=== PATIENT | female | born 1945 | race African-American/Black ===

== ENCOUNTER 2021-12-08 16:48 | Emergency (ER) | payer MEDICARE ==
--- OUTSIDE RECORDS SUMMARY | 2021-12-08 16:51 | XMS REPORT | Continuity of Care Document ---
:1945 Author Organization [facility] t Address [address] [place] [address] Care Team Providers Name Role Phone Emili MAI Primary Care Physician Unavailable Emili Mai Attending Clinician Unavailable Jane MON Attending Clinician Unavailable Brisa BARROS, L Attending Clinician Doctor Unassigned, Name Attending Clinician Unavailable Tamika BARROS Attending Clinician TAMIKA Attending Clinician Unavailable Payers Payer Name Policy Type Policy Number Effective Date Expiration Date [facility] [id number] 2021 (MEDICARE 00:00:00 REPLACEMENT HMO) Problems Condition Condition Condition Status Onset Resolution Last Treating Co mments Source Name Details Category Date Date Treatment Clinician Date Injury of Injury of Disease Active 2020-07 Overview: Univers right right 08-03 Formattin ity of ankle, ankle, 00:00: g of this [place] initial initial 00 note Medical encounter encounter might be Br anch different from the original. Added automatic ally from request for surgery [id number] Allergies, Adverse Reactions, Alerts Allergy Allergy Status Severity Reaction(s) Onset Inactive Treating Comm ents Source Name Type Date Date Clinician LISINOPR DRUG Active High Swelling Univer s [place] INGREDI 03-20 ity of 00:00: [place] 00 [facility] Lisinopr Drug Active Other - See Uni vers il Allergy comments 03-20 ity of 00:00: [place] [facility] IODINE DRUG Active Unknown-Cmnt Univ ers INGREDI 04-01 ity of 00:00: [place] [facility] Iodine Propensi Active Unknown - Unive rs ty to See comments 04-01 ity of adverse 00:00: [place] reaction 00 Medical s Branch Iodine Adverse Active swelling Common Reaction [facility] Lisinopr Adverse Active Swelling Commo n il Reaction [facility] Social History Social Habit Start Date Stop Date Quantity Comments Source Exposure to Not sure [facility] SARS-CoV-2 (event) Medica Branch Tobacco use and 2021-06-06 2021-06-06 Never used [facility] exposure 00:00:00 00:00:00 Medical Branch Sex [birth year] [facility] 00:00:00 00:00:00 Medical Branch Smoking Status Start Date Stop Date Source Never smoker [facility] Medications Ordered Filled Start Stop Current Ordering Indication Dosage Frequency Signature Comments Components Source Medication Medication Date Date Medication? Clinician (SIG) Name Name losartan 2020-07 Yes 100mg Take 100 Univ ers 100 mg 1-17 mg by ity of tablet 09:07: mouth [place] [address] daily. Medical Branch amLODIPine 2020-07 Yes 10mg Take 10 mg U nivers 10 mg 1-17 by mouth ity of tablet 09:07: daily. [place] [address] Medical Branch cloNIDine 2020-07 Yes .3mg Take 0.3 Univ ers 0.3 mg 1-17 mg by ity of tablet 09:07: mouth as [place] needed. Medical Branch metFORMIN 2020-07 Yes 1000mg Take 1,000 Univers 1,000 mg 1-17 mg by ity of tablet 09:07: mouth [place] [address] daily. Medical Branch carvediloL 2020-07 Yes 12.5mg Take 12.5 Univers 12.5 mg 1-17 mg by ity of tablet 09:07: mouth [place] daily. Medical Branch furosemide 2020-07 Yes 20mg Take 20 mg U nivers 20 mg 1-17 by mouth ity of tablet 09:07: daily. [address] Branch losartan 2020-07 Yes 100mg Take 100 Univ ers 100 mg 1-17 mg by ity of tablet 09:07: mouth [place] 47 daily. Medical Branch amLODIPine 2020-07 Yes 10mg Take 10 mg U nivers 10 mg 1-17 by mouth ity of tablet 09:07: daily. [place] [address] Medical Branch cloNIDine 2020-07 Yes .3mg Take 0.3 Univ ers 0.3 mg 1-17 mg by ity of tablet 09:07: mouth as [place] 47 needed. Medical Branch metFORMIN 2020-07 Yes 1000mg Take 1,000 Univers 1,000 mg 1-17 mg by ity of tablet 09:07: mouth [place] 47 daily. Medical Branch carvediloL 2020-07 Yes 12.5mg Take 12.5 Univers 12.5 mg 1-17 mg by ity of tablet 09:07: mouth [place] 47 daily. Medical Branch furosemide 2020-07 Yes 20mg Take 20 mg U nivers 20 mg 1-17 by mouth ity of tablet 09:07: daily. [place] [address] Medical Branch losartan 2020-07 Yes 100mg Take 100 Univ ers 100 mg 1-17 mg by ity of tablet 09:07: mouth [place] 47 daily. Medical Branch amLODIPine 2020-07 Yes 10mg Take 10 mg U nivers 10 mg 1-17 by mouth ity of tablet 09:07: daily. [place] [address] Medical Branch cloNIDine 2020-07 Yes .3mg Take 0.3 Univ ers 0.3 mg 1-17 mg by ity of tablet 09:07: mouth as [place] 47 needed. Medical Branch metFORMIN 2020-07 Yes 1000mg Take 1,000 Univers 1,000 mg 1-17 mg by ity of tablet 09:07: mouth [place] 47 daily. Medical Branch carvediloL 2020-07 Yes 12.5mg Take 12.5 Univers 12.5 mg 1-17 mg by ity of tablet 09:07: mouth [place] 47 daily. Medical Branch furosemide 2020-07 Yes 20mg Take 20 mg U nivers 20 mg 1-17 by mouth ity of tablet 09:07: daily. [place] [address] Medical Branch losartan 2020-07 Yes 100mg Take 100 Univ ers 100 mg 1-17 mg by ity of tablet 09:07: mouth [place] 47 daily. Medical Branch amLODIPine 2020-07 Yes 10mg Take 10 mg U nivers 10 mg 1-17 by mouth ity of tablet 09:07: daily. [address] cloNIDine 2020-07 Yes .3mg Take 0.3 Univ ers 0.3 mg 1-17 mg by ity of tablet 09:07: mouth as [place] [address] needed. Medical Branch metFORMIN 2020-07 Yes 1000mg Take 1,000 Univers 1,000 mg 1-17 mg by ity of tablet 09:07: mouth [place] [address] daily. Medical Branch carvediloL 2020-07 Yes 12.5mg Take 12.5 Univers 12.5 mg 1-17 mg by ity of tablet 09:07: mouth [place] [address] daily. Medical Branch furosemide 2020-07 Yes 20mg Take 20 mg U nivers 20 mg 1-17 by mouth ity of tablet 09:07: daily. [address] Atorvastati Atorvastati Yes Robert 1 tablet Common n Calcium n Calcium 7-31 Mai Spir it 00:00: - [facility] 00 [facility] Ferrous Ferrous Yes Robert 1 tablet Com mon Sulfate Sulfate [facility] Lexi Lexi Yes Robert 1 tablet Common Aspirin Aspirin Mai [facility] Clonidine Clonidine Yes Robert 1 tablet Common HCl HCl Mai [facility] Coreg Coreg Yes Robert 1 tablet Common Mai with food [facility] Norvasc Norvasc Yes Robert 1 tablet Com mon Mai [facility] Metformin Metformin Yes Robert 1 tablet Common HCl HCl Mai with meals [facility] Ipratropium Ipratropium Yes Robert USE 3 ML Common -Albuterol -Albuterol Mai VIA Sp minnie NEBULIZER - [facility] EVERY [address] [facility] Losartan Losartan Yes Robert 1 tablet C ommon Potassium Potassium Mai Spir [facility] Vital Signs Vital Name Observation Time Observation Value Comments Source Systolic blood 2021-06-11 15:05:00 132 mm[Hg[facility] 2021-06-11 15:05:00 73 mm[facility]Hg[facility] Heart rate 2021-06-11 15:05:00 72 /min [facility] Body height 2021-06-11 15:05:00 160 cm [facility] Body weight 2021-06-11 15:05:00 107.956 kg [facility] BMI 2021-06-11 15:05:00 42.16 kg/m2 [facility] Oxygen saturation 2021-06-11 15:05:00 96 /min [facility] in Arterial blood Medical Br anch by Pulse oximetry Procedures Procedure Date / Time Performing Clinician Source Performed EXTERNAL PROVIDER - ADC 2021-07-09 06:01:00 Doctor Unassigned, N o [facility] CARDIOLOGY [facility] HB ECG ROUTINE & RHYTHM 2021-06-11 15:11:49 Robin [facility] AUTHORIZATION TO RELEASE 2021-06-11 06:01:00 Doctor Unassigned, No [facility] PHI TO [facility] Encounters Start End Encounter Admission Attending Care Care Encounter Source Date/Time Date/Time Type Type Clinicians Facility Department ID 2021-11-21 Outpatient Mai, STLMLC STLMLC [id number] Common 08:51:01 Robert [id number] [facility] 2021-08-20 Outpatient Mai, STLMLC STLMLC [id number] Common 13:35:21 Robert [id number] [facility] 2021-08-20 Outpatient Mai, STLMLC STLMLC [id number] Common 13:06:25 Robert [id number] [facility] 2021-08-20 Outpatient Mai, STLMLC STLMLC [id number] Common 12:37:56 Robert [id number] [facility] 2021-08-20 Outpatient Mai, STLMLC STLMLC [id number] Common 11:51:15 Robert [id number] [facility] 2021-08-20 Outpatient Mai, STLMLC STLMLC [id number] Common 11:50:29 Robert [id number] [facility] 2021-08-20 Outpatient Mai, STLMLC STLMLC [id number] Common 11:42:33 Robert [id number] [facility] 2021-08-20 Outpatient Mai, STLMLC STLMLC [id number] Common 11:17:37 Robert [id number] [facility] 2021-08-20 Outpatient Mai, STLMLC STLMLC [id number] Common 10:59:55 Robert [id number] [facility] 2021-08-20 Outpatient Mai, STLMLC STLMLC [id number] Common 10:58:12 Robert [id number] [facility] 2021-12-03 2021-12-03 ambulatory STLMLC STLMLC [id number] Common 00:00:00 00:00:00 [facility] 2021-12-02 2021-12-02 ambulatory STLMLC STLMLC [id number] Common 00:00:00 00:00:00 [facility] 2021-11-26 2021-11-26 ambulatory STLMLC STLMLC [id number] Common 00:00:00 00:00:00 [facility] 2021-11-24 2021-11-24 ambulatory STLMLC STLMLC [id number] Common 00:00:00 00:00:00 [facility] 2021-10-27 2021-10-27 Outpatient Rohan MON [facility] [id number] Univers 14:30:00 14:30:00 JASMYN [id number] [facility] 2021-10-27 2021-10-27 Outpatient Rohan MON [facility] [id number] Univers 14:30:00 14:30:00 JASMYN [facility] 2021-10-24 2021-10-24 ambulatory STLMLC STLMLC [id number] Common 00:00:00 00:00:00 [facility] 2021-10-15 2021-10-15 Telephone Brisa AZCRISTIANO [id number] Univers 00:00:00 00:00:00 Jasmyn [facility] [id number] it y cinthya GODINEZ [id number] Patrick as SHEREEN?BLEA [phone] Me giancarlo [address] MEDICAL OFFICE BUILDING 2021-07-09 2021-07-09 Orders Doctor JOSE [id number] Univers 00:00:00 00:00:00 Only Unassigned, MARYLOU [id number] ity of [place] [facility] [id number] Patrick as [phone] [address] 2021-06-11 2021-06-11 [facility] [id number] Univers 08:40:00 09:25:09 Visit Robin GODINEZ [id number] ity [id number] [place] PROF[place] [phone] Tn [address] 2021-06-11 2021-06-11 [facility] [id number] Univers 08:40:00 09:25:09 ROBIN kaur o f [place] [facility] 2021-06-11 2021-06-11 Orders Doctor JOSE [id number] Univers 00:00:00 00:00:00 Only Unassigned, MARYLOU [id number] ity of [place] [facility] [id number] Patrick as [id number] [address] 2021-06-02 2021-06-02 Outpatient Rohan MON [facility] [id number] Univers 15:45:00 16:35:14 JASMYN ity [facility] 2021-02-27 2021-02-27 Outpatient STLMLC STLMLC [id number] Common 00:00:00 00:00:00 [facility] 2021-02-27 2021-02-27 Outpatient STLMLC STLMLC [id number] Common 00:00:00 00:00:00 [facility] 2021-01-31 2021-01-31 Outpatient DMG DMG [id number] [facility]oted 08:00:00 08:00:00 [id number] [facility] 2020-10-01 2020-10-01 Outpatient STLMLC STLMLC [id number] Common 00:00:00 00:00:00 [facility] 2020-08-26 2020-08-26 Outpatient STLMLC STLMLC [id number] Common 00:00:00 00:00:00 [facility] 2020-07-24 2020-07-24 Outpatient STLMLC STLMLC [id number] Common 00:00:00 00:00:00 [facility] 2020-07-03 2020-07-03 Outpatient STLMLC STLMLC [id number] Common 00:00:00 00:00:00 [facility] 2020-05-30 2020-05-30 Outpatient STLMLC STLMLC [id number] Common 00:00:00 00:00:00 [facility] 2020-04-25 2020-04-25 Outpatient STLMLC STLMLC [id number] Common 00:00:00 00:00:00 [facility] 2020-03-26 2020-03-26 [id number] Common 13:30:00 13:30:[address] [facility] 2019-12-13 2019-12-13 Out[facility] [id number] Common 13:00:00 13:00:[address] [facility] 2019-11-28 2019-11-28 Out[facility] [id number] Common 08:08:00 08:08:[address] [facility] 2019-08-03 2019-08-03 Outpatient [facility] [id number] Common 14:00:00 14:00:[address] [facility] 2019-05-25 2019-05-25 Outpatient [facility] [id number] Common 13:00:00 13:00:[address] [facility] 2019-02-22 2019-02-22 Out[facility] [id number] Common 13:00:00 13:00:[address] [facility] 2019-02-15 2019-02-15 Out[facility] [id number] Common 08:00:00 08:00:[address] [facility] 2019-01-11 2019-01-11 Outpatient [facility] [id number] Common 15:00:00 15:00:[address] [facility] 2018-03-21 2018-03-21 Out[facility] [id number] Common 13:00:00 13:00:[address] [facility] 2018-02-18 2018-02-18 Out[facility] [id number] Common 12:09:00 12:09:[address] [facility] 2018-02-14 2018-02-14 Out[facility] [id number] Common 11:15:00 11:15:[address] [facility] 2018-01-19 2018-01-19 Out[facility] [id number] Common 13:45:00 13:45:[address] [facility] Results This patient has no known results.
--- NOTE | 2021-12-08 17:47 | ER ---
Nurse's Notes [facility] Name: Lizett Baca Age: 76 yrs Sex: Female : 1945 Arrival Date: 12/08/2021 Time: 16:52 Bed DIS2 Private MD: Robert Mai Diagnosis: Essential (primary) hypertension Presentation: 12/08 16:59 Chief complaint: Patient states: reports sent by [facility] for high blood ll1 pressure. Pt reports did not take medication today. Pt denies headache , dizziness or difficulty breathing. Coronavirus screen: Vaccine status: Patient reports receiving the 2nd dose of the covid vaccine. Ebola Screen: Patient negative for fever greater than or equal to 101.5 degrees Fahrenheit, and additional compatible Ebola Virus Disease symptoms. Risk Assessment: Do you want to hurt yourself or someone else? Patient reports no desire to harm self or others. Onset of symptoms was December 08, 2021. 16:59 Method Of Arrival: Wheelchair ll1 16:59 Acuity: MARIAA 3 ll1 18:09 Initial Sepsis Screen: Does the patient meet any 2 criteria? No. Patient's initial ll1 sepsis screen is negative. Does the patient have a suspected source of infection? No. Patient's initial sepsis screen is negative. Triage Assessment: 18:07 General: Appears in no apparent distress. Behavior is calm, cooperative, appropriate ll1 for age. Pain: Denies pain. Neuro: Reports HTN. Historical: - Allergies: 17:02 Iodine; ll1 - Home Meds: 17:02 allopurinol 300 mg oral tab once daily [Active]; amlodipine 10 mg oral tab once daily ll1 [Active]; clonidine HCl 0.3 mg oral tab 2 times per day [Active]; metformin 1,000 mg oral TG24 2 times per day [Active]; Iron CR Oral daily [Active]; losartan 100 mg oral tab once daily [Active]; carvedilol 3.125 mg oral tab 2 times per day [Active]; - PMHx: 17:05 Diabetes mellitus; Hypertensive disorder; wound to left foot; right ankle fracture; ll1 - PSHx: 17:05 None; ll1 - Immunization history:: Client reports receiving the 2nd dose of the Covid vaccine. - Social history:: Smoking status: Patient denies any tobacco usage or history of. Screenin:06 Abuse screen: Denies threats or abuse. Nutritional screening: No deficits noted. ll1 Tuberculosis screening: No symptoms or risk factors identified. Fall Risk Total Dwyer Fall Scale indicates No Risk (0-24 pts). Assessment: 18:07 Reassessment: No changes from previously documented assessment. Patient and/or family ll1 updated on plan of care and expected duration. Pain level reassessed. Patient is alert, oriented x 3, equal unlabored respirations, skin warm/dry/pink. Vital Signs: 16:59 BP 238 / 96; Pulse 97; Resp 20; Temp 98.6(O); Pulse Ox 98% ; Pain 0/10; ll1 17:07 BP 238 / 96; Pulse 88; Resp 20; Temp 98.6(O); Pulse Ox 100% on R/A; Pain 0/10; ll1 18:02 BP 231 / 116; Pulse 94; Resp 20; Pulse Ox 97% on R/A; ww ED Course: 16:52 Patient arrived in ED. mr 16:52 Robert Mai DO is Private Physician. mr 17:02 Triage completed. ll1 17:14 Thomas Young MD is Attending Physician. barbara 17:46 Robert Mai DO is Referral Physician. barbara 18:07 Arm band placed on right wrist. ll1 18:07 No provider procedures requiring assistance completed. Patient did not have IV access ll1 during this emergency room visit. 18:10 Sophia Medina, RN is Primary Nurse. ll1 18:10 Patient has correct armband on for positive identification. Cardiac monitoring not ll1 applicable on this patient. Administered Medications: 18:03 Drug: Losartan 100 mg Route: PO; ww 18:10 Follow up: Response: No adverse reaction ll1 18:03 Drug: Coreg (carvedilol) 3.125 mg Route: PO; ww 18:10 Follow up: Response: No adverse reaction ll1 18:03 Drug: Norvasc (amlodipine) 10 mg Route: PO; ww 18:10 Follow up: Response: No adverse reaction ll1 18:03 Drug: cloNIDine 0.1 mg Route: PO; ww 18:11 Follow up: Response: No adverse reaction ll1 Medication: 18:10 VIS not applicable for this client. ll1 Outcome: 17:47 Discharge ordered by . barbara 18:08 Discharged to home via wheelchair. 1 18:08 Condition: stable 18:08 Discharge instructions given to patient, Instructed on discharge instructions, follow up and referral plans. medication usage, Demonstrated understanding of instructions, follow-up care, medications, Prescriptions given X 3. 18:10 Patient left the ED. 1 Signatures: Thomas Young MD MD cha Rivera, Mary mr Sohpia Medina RN RN [facility] Char Simon RN RN Corrections: (The following items were deleted from the chart) 17:07 17:02 PMHx: Hypertension; 1 1 17:07 17:02 PMHx: Diabetes - NIDDM; [place] [id number]
--- NOTE | 2021-12-08 17:47 | EDPHYS ---
Physician Documentation [facility] Name: Lizett Baca Age: 76 yrs Sex: Female : 1945 Arrival Date: 12/08/2021 Time: 16:52 Bed DIS2 Private MD: Sergei [facility] ED Physician Thomas Young HPI: 12/08 17:41 This 76 yrs old Black Female presents to ER via Wheelchair with complaints of High barbara Blood Pressure. 17:41 The patient has elevated blood pressure and discovered this at hospital. Onset: The barbara symptoms/episode began/occurred today. Modifying factors: The symptoms are aggravated by activity, The symptoms are alleviated by remaining still. Associated signs and symptoms: The patient has no apparent associated signs or symptoms. Severity of symptoms: At its worst the blood pressure was moderate, in the emergency department the blood pressure is unchanged. The patient has experienced similar episodes in the past, multiple times. Historical: - Allergies: 17:02 Iodine; ll1 - Home Meds: 17:02 allopurinol 300 mg oral tab once daily [Active]; amlodipine 10 mg oral tab once daily ll1 [Active]; clonidine HCl 0.3 mg oral tab 2 times per day [Active]; metformin 1,000 mg oral TG24 2 times per day [Active]; Iron CR Oral daily [Active]; losartan 100 mg oral tab once daily [Active]; carvedilol 3.125 mg oral tab 2 times per day [Active]; - PMHx: 17:05 Diabetes mellitus; Hypertensive disorder; wound to left foot; right ankle fracture; ll1 - PSHx: 17:05 None; ll1 - Immunization history:: Client reports receiving the 2nd dose of the Covid vaccine. - Social history:: Smoking status: Patient denies any tobacco usage or history of. ROS: 17:42 Constitutional: Negative for fever, chills, and weight loss, Eyes: Negative for injury, barbara pain, redness, and discharge, ENT: Negative for injury, pain, and discharge, Neck: Negative for injury, pain, and swelling, Cardiovascular: Negative for chest pain, palpitations, and edema, Respiratory: Negative for shortness of breath, cough, wheezing, and pleuritic chest pain, Abdomen/GI: Negative for abdominal pain, nausea, vomiting, diarrhea, and constipation, Back: Negative for injury and pain, : Negative for injury, bleeding, discharge, and swelling, MS/Extremity: Negative for injury and deformity, Skin: Negative for injury, rash, and discoloration, Neuro: Negative for headache, weakness, numbness, tingling, and seizure, Psych: Negative for depression, anxiety, suicide ideation, homicidal ideation, and hallucinations, Allergy/Immunology: Negative for hives, rash, and allergies, Endocrine: Negative for neck swelling, polydipsia, polyuria, polyphagia, and marked weight changes, Hematologic/Lymphatic: Negative for swollen nodes, abnormal bleeding, and unusual bruising. Exam: 17:42 Constitutional: This is a well developed, well nourished patient who is awake, alert, barbara and in no acute distress. Head/Face: Normocephalic, atraumatic. Eyes: Pupils equal round and reactive to light, extra-ocular motions intact. Lids and lashes normal. Conjunctiva and sclera are non-icteric and not injected. Cornea within normal limits. Periorbital areas with no swelling, redness, or edema. ENT: Nares patent. No nasal discharge, no septal abnormalities noted. Tympanic membranes are normal and external auditory canals are clear. Oropharynx with no redness, swelling, or masses, exudates, or evidence of obstruction, uvula midline. Mucous membranes moist. Neck: Trachea midline, no thyromegaly or masses palpated, and no cervical lymphadenopathy. Supple, full range of motion without nuchal rigidity, or vertebral point tenderness. No Meningismus. Chest/axilla: Normal chest wall appearance and motion. Nontender with no deformity. No lesions are appreciated. Cardiovascular: Regular rate and rhythm with a normal S1 and S2. No gallops, murmurs, or rubs. Normal PMI, no JVD. No pulse deficits. Respiratory: Lungs have equal breath sounds bilaterally, clear to auscultation and percussion. No rales, rhonchi or wheezes noted. No increased work of breathing, no retractions or nasal flaring. Abdomen/GI: Soft, non-tender, with normal bowel sounds. No distension or tympany. No guarding or rebound. No evidence of tenderness throughout. Back: No spinal tenderness. No costovertebral tenderness. Full range of motion. Female : Normal external genitalia. Skin: Warm, dry with normal turgor. Normal color with no rashes, no lesions, and no evidence of cellulitis. Neuro: Awake and alert, GCS 15, oriented to person, place, time, and situation. Cranial nerves II-XII grossly intact. Motor strength 5/5 in all extremities. Sensory grossly intact. Cerebellar exam normal. Normal gait. Psych: Awake, alert, with orientation to person, place and time. Behavior, mood, and affect are within normal limits. 17:42 Musculoskeletal/extremity: ROM: intact in all extremities, full active range of motion, full passive range of motion, Circulation is intact in all extremities. Sensation intact. Compartment Syndrome exam of affected extremity: is normal. Vital Signs: 16:59 BP 238 / 96; Pulse 97; Resp 20; Temp 98.6(O); Pulse Ox 98% ; Pain 0/10; ll1 17:07 BP 238 / 96; Pulse 88; Resp 20; Temp 98.6(O); Pulse Ox 100% on R/A; Pain 0/10; ll1 18:02 BP 231 / 116; Pulse 94; Resp 20; Pulse Ox 97% on R/A; ww MDM: 17:14 Patient medically screened. barbara 17:42 Differential diagnosis: hypertensive crisis, Malignant HTN. Data reviewed: vital signs, barbara nurses notes. 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 Test interpretation: by ED physician or midlevel provider:. Counseling: I had a detailed discussion with the patient and/or guardian regarding: the historical points, exam findings, and any diagnostic results supporting the discharge/admit diagnosis, lab results. Administered Medications: 18:03 Drug: Losartan 100 mg Route: PO; ww 18:10 Follow up: Response: No adverse reaction ll1 18:03 Drug: Coreg (carvedilol) 3.125 mg Route: PO; ww 18:10 Follow up: Response: No adverse reaction ll1 18:03 Drug: Norvasc (amlodipine) 10 mg Route: PO; ww 18:10 Follow up: Response: No adverse reaction ll1 18:03 Drug: cloNIDine 0.1 mg Route: PO; ww 18:11 Follow up: Response: No adverse reaction ll1 Disposition Summary: 12/08/21 17:47 Discharge Ordered Location: Home barbara Problem: new barbara Symptoms: have improved barbara Condition: Stable barbara Diagnosis - Essential (primary) hypertension barbara Followup: barbara - With: Robert Mai, DO - When: 2 - 3 days - Reason: Recheck today's complaints, Continuance of care, Re-evaluation by your physician Discharge Instructions: - Discharge Summary Sheet barbara - Hypertension, Adult barbara - Hypertension, Adult, [id number] barbara - Managing Your Hypertension barbara Forms: - Medication Reconciliation Form barbara - Thank You Letter barbara - Antibiotic Education barbara - Prescription Opioid Use barbara Prescriptions: - losartan 100 mg Oral tablet - take 1 tablet by ORAL route once daily; 30 tablet; Refills: 0, Product barbara Selection Permitted - Norvasc 10 mg Oral Tablet - take 1 tablet by ORAL route once daily; 30 tablet; Refills: 0, Product barbara Selection Permitted - Coreg 3.125 mg Oral Tablet - take 2 tablets by ORAL route every 12 hours with food; 60 tablet; Refills: 0, barbara Product Selection Permitted Signatures: Thomas Young MD MD cha Lewis, Lynsay RN RN ll1 Char Simon RN RN ww Corrections: (The following items were deleted from the chart) 17:07 17:02 PMHx: Hypertension; ll1 ll1 17:07 17:02 PMHx: Diabetes - NIDDM; ll1 ll1
[2021-12-08] MEDS ORDERED: LOSARTAN POTASSIUM 50 MG TABLET ONE (18:03)
[2021-12-08] MEDS ORDERED: carvediloL 6.25 MG TAB ONE (18:04)
[2021-12-08] MEDS ORDERED: AMLODIPINE 10 MG TAB ONE (18:04)
[2021-12-08] MEDS ORDERED: cloNIDine HCL 0.1 MG TAB ONE (18:04)
[2021-12-08 18:20] VITALS: TEMP 98.6
[2021-12-08 18:23] VITALS: BP 231/116; O2SAT 97
== END 2021-12-08 18:10 | disposition home or self-care (01) ==
LOC: ER 16:48
DX: I10 Essential (primary) hypertension (principal); Z91.09 Other allergy status, other than to drugs and biological substances; E11.9 Type 2 diabetes mellitus without complications
CPT/HCPCS: 99283

== ENCOUNTER 2022-03-22 18:32 | Emergency (ER) | payer MEDICARE ==
--- OUTSIDE RECORDS SUMMARY | 2022-03-22 18:36 | XMS REPORT | Continuity of Care Document ---
:1945 Author Organization [facility] t Address [address] [place] [address] Care Team Providers Name Role Phone LORETO MAI Primary Care Physician Unavailable Loreto Mai Attending Clinician Unavailable JASMYN LEDEZMA Attending Clinician Unavailable Jasmyn Ledezma MD Attending Clinician Doctor Unassigned, [place] Attending Clinician Unavailable Robin Lundberg MD Attending Clinician ROBIN LUNDBERG Attending Clinician Unavailable Payers Payer Name Policy Type Policy Number Effective Date Expiration Date [facility] [id number] 2021 (MEDICARE 00:00:00 REPLACEMENT HMO) Problems Condition Condition Condition Status Onset Resolution Last Treating Co mments Source Name Details Category Date Date Treatment Clinician Date Injury of Injury of Disease Active 2020-07 Overview: Univers right right 08-03 Formattin ity of ankle, ankle, 00:00: g of this [place] initial initial 00 note Medical encounter encounter might be Br anch different from the original. Added automatic ally from request for surgery [id number] Allergies, Adverse Reactions, Alerts Allergy Allergy Status Severity Reaction(s) Onset Inactive Treating Comm ents Source Name Type Date Date Clinician LISINOPR DRUG Active High Swelling Univer s [place] INGREDI 03-20 ity of 00:00: [place] [facility] Lisinopr Drug Active Other - See Uni vers il Allergy comments 03-20 ity of 00:00: [place] [facility] IODINE DRUG Active Unknown-Cmnt Univ ers INGREDI 04-01 ity of 00:00: [place] [facility] Iodine Propensi Active Unknown - Unive rs ty to See comments 04-01 ity of adverse 00:00: [place] reaction 00 Medical s Branch Iodine Adverse Active swelling Common Reaction [facility] Lisinopr Adverse Active Swelling Commo n il Reaction [facility] Social History Social Habit Start Date Stop Date Quantity Comments Source Exposure to Not sure [facility] SARS-CoV-2 (event) Medica l Branch Tobacco use and 2021-06-06 2021-06-06 Never used [facility] exposure 00:00:00 00:00:00 [facility] Branch Sex Ass[birth year] [facility] 00:00:00 00:00:00 [facility] Smoking Status Start Date Stop Date Source Never smoker [facility] Medications Ordered Filled Start Stop Current Ordering Indication Dosage Frequency Signature Comments Components Source Medication Medication Date Date Medication? Clinician (SIG) Name Name metFORMIN 2020-07 Yes 1000mg Take 1,000 Univers 1,000 mg 1-17 mg by ity of tablet 09:07: mouth [place] [address] daily. Medical Branch carvediloL 2020-07 Yes 12.5mg Take 12.5 Univers 12.5 mg 1-17 mg by ity of tablet 09:07: mouth [place] [address] daily. Medical Branch furosemide 2020-07 Yes 20mg Take 20 mg U nivers 20 mg 1-17 by mouth ity of tablet 09:07: daily. [place] [address] Medical Branch losartan 2020-07 Yes 100mg Take 100 Univ ers 100 mg 1-17 mg by ity of tablet 09:07: mouth [place] [address] daily. Medical Branch amLODIPine 2020-07 Yes 10mg Take 10 mg U nivers 10 mg 1-17 by mouth ity of tablet 09:07: daily. [place] [address] Medical Branch cloNIDine 2020-07 Yes .3mg Take [...] by mouth ity of tablet 09:07: daily. [place] [address] Medical Branch losartan 2020-07 Yes 100mg Take 100 Univ ers 100 mg 1-17 mg by ity of tablet 09:07: mouth [place] 47 daily. Medical Branch amLODIPine 2020-07 Yes 10mg Take 10 mg U nivers 10 mg 1-17 by mouth ity of tablet 09:07: daily. [place] [address] Medical Branch cloNIDine 2020-07 Yes .3mg Take [...] by mouth ity of tablet 09:07: daily. [place] [address] Medical Branch losartan 2020-07 Yes 100mg Take 100 Univ ers 100 mg 1-17 mg by ity of tablet 09:07: mouth [place] 47 daily. Medical Branch amLODIPine 2020-07 Yes 10mg Take 10 mg U nivers 10 mg 1-17 by mouth ity of tablet 09:07: daily. [place] [address] Medical Branch cloNIDine 2020-07 Yes .3mg Take [...] by mouth ity of tablet 09:07: daily. [place] [address] Medical Branch losartan 2020-07 Yes 100mg Take 100 Univ ers 100 mg 1-17 mg by ity of tablet 09:07: mouth [place] 47 daily. Medical Branch amLODIPine 2020-07 Yes 10mg Take 10 mg U nivers 10 mg 1-17 by mouth ity of tablet 09:07: daily. [place] [address] Medical Branch cloNIDine 2020-07 Yes .3mg Take 0.3 Univ ers 0.3 mg 1-17 mg by ity of tablet 09:07: mouth as [place] needed. [facility] Atorvastati Atorvastati Yes [place] 1 tablet Common n Calcium n Calcium 7-31 Mai Spir it 00:00: - [facility] 00 [facility] Ferrous Ferrous Yes [place] 1 tablet Com mon Sulfate Sulfate Mai [facility] Lexi Lexi Yes [place] 1 tablet Common Aspirin Aspirin Mai [facility] Clonidine Clonidine Yes [place] 1 tablet Common HCl HCl Mai [facility] Coreg Coreg Yes [place] 1 tablet Common Mai with food [facility] Norvasc Norvasc Yes [place] 1 tablet Com mon Mai [facility] Metformin Metformin Yes [place] 1 tablet Common HCl HCl Mai with meals [facility] Ipratropium Ipratropium Yes [place] USE 3 ML Common -Albuterol -Albuterol Mai VIA Sp minnie NEBULIZER - [facility]I [facility] EVERY [address] HOURS [facility] Losartan Losartan Yes [place] 1 tablet C ommon Potassium Potassium Mai Spir [facility] Vital Signs Vital Name Observation Time Observation Value Comments Source Systolic blood 2021-06-11 15:05:00 132 mm[Hg] Univer sity [facility] [place] [facility] Diastolic blood 2021-06-11 15:05:00 73 mm[Hg] Unive rsity [facility] Heart rate 2021-06-11 15:05:00 72 /min [facility] Body height 2021-06-11 15:05:00 160 cm [facility] Body weight 2021-06-11 15:05:00 107.956 kg [facility] BMI 2021-06-11 15:05:00 42.16 kg/m2 [facility] Oxygen saturation 2021-06-11 15:05:00 96 /min [facility] in Arterial blood Medical Br anch by Pulse oximetry Procedures Procedure Date / Time Performing Clinician Source Performed EXTERNAL PROVIDER - ADC 2021-07-09 06:01:00 Doctor Unassigned, N o [facility] CARDIOLOGY Name [facility] HB ECG ROUTINE & RHYTHM 2021-06-11 15:11:49 Robin Lundberg [facility] AUTHORIZATION TO RELEASE 2021-06-11 06:01:00 Doctor Unassigned, No [facility] PHI TO [facility] Name [facility] Encounters Start End Encounter Admission Attending Care Care Encounter Source Date/Time Date/Time Type Type Clinicians Facility Department ID 2021-11-21 Outpatient Mai, STLMLC STLMLC [id number] Common 08:51:01 [place] [address] [facility] 2021-08-20 Outpatient Mai, STLMLC STLMLC [id number] Common 13:35:21 [place] [address]373 [facility] 2021-08-20 Outpatient Mai, STLMLC STLMLC [id number] Common 13:06:25 [place] 40310 [facility] 2021-08-20 Outpatient Mai, STLMLC STLMLC [id number] Common 12:37:56 [place] 45120 [facility] 2021-08-20 Outpatient Mai, STLMLC STLMLC [id number] Common 11:51:15 [place] 9[address]87 [facility] 2021-08-20 Outpatient Mai, STLMLC STLMLC [id number] Common 11:50:29 [place] 70739 [facility] 2021-08-20 Outpatient Mai, STLMLC STLMLC [id number] Common 11:42:33 [place] 711[address] [facility] 2021-08-20 Outpatient Mai, STLMLC STLMLC [id number] Common 11:17:37 [place] 867[address] [facility] 2021-08-20 Outpatient Mai, STLMLC STLMLC [id number] Common 10:59:55 [place] [address] [facility] 2021-08-20 Outpatient Mai, STLMLC STLMLC [id number] Common 10:58:12 [place] [address] [facility] 2022-03-04 2022-03-04 ambulatory STLMLC STLMLC [id number] Common 00:00:00 00:00:00 [facility] 2022-02-19 2022-02-19 ambulatory STLMLC STLMLC [id number] Common 00:00:00 00:00:00 [facility] 2022-02-06 2022-02-06 Outpatient DMG [id number] [facility] 03:28:00 03:28:00 [facility] 2021-12-03 2021-12-03 ambulatory STLMLC STLMLC [id number] Common 00:00:00 00:00:00 [facility] 2021-12-02 2021-12-02 ambulatory STLMLC STLMLC [id number] Common 00:00:00 00:00:00 [facility] 2021-11-26 2021-11-26 ambulatory STLMLC STLMLC [id number] Common 00:00:00 00:00:00 [facility] 2021-11-24 2021-11-24 ambulatory STLMLC STLMLC [id number] Common 00:00:00 00:00:00 [facility] 2021-10-27 2021-10-27 Outpatient Rohan LEDEZMA [facility] [id number] Univers 14:30:00 14:30:00 JASMYN [id number] [facility] 2021-10-27 2021-10-27 Outpatient Rohan LEDEZMA [facility] [id number] Univers 14:30:00 14:30:00 JASMYN ity [facility] 2021-10-24 2021-10-24 ambulatory STLMLC STLMLC [id number] Common 00:00:00 00:00:00 Jamel WOJCIECH [facility] 2021-10-15 2021-10-15 [facility] [id number] Univers 00:00:00 00:00:00 Jasmyn [facility] [id number] it y of [facility] [id number] Patrick as SHEREEN?BLEA [phone] Hi dical EY [address] [facility] 2021-07-09 2021-07-09 Orders Doctor JOSE [id number] Univers 00:00:00 00:00:00 Only Unassigned, MARYLOU [id number] ity of [place] [facility] [id number] [place] as [phone] [address] 2021-06-11 2021-06-11 Office [facility] [id number] Univers 08:40:00 09:25:09 Visit Robin [facility] [id number] ity [facility] [id number] [phone] Hi giancarlo [facility] 0[facility] 2021-06-11 2021-06-11 [facility] [id number] Univers 08:40:00 09:25:09 ROBIN kaur o f [facility] 2021-06-11 2021-06-11 Orders Doctor JOSE [id number] Univers 00:00:00 00:00:00 Only Unassigned, MARYLOU [id number] ity of [place] [facility] [id number] Patrick as [phone] [address] 2021-06-02 2021-06-02 [facility] [id number] Univers 15:45:00 16:35:14 JASMYN kaur [facility] 2021-02-27 2021-02-27 Outpatient STLMLC STLMLC [id number] Common 00:00:00 00:00:00 [facility] 2021-02-27 2021-02-27 Outpatient STLMLC STLMLC [id number] Common 00:00:00 00:00:00 [facility] 2021-01-31 2021-01-31 Outpatient DMG DMG [id number] [facility] 08:00:00 08:00:00 0709 [facility] 2020-10-01 2020-10-01 Outpatient STLMLC STLMLC [id number] Common 00:00:00 00:00:00 [facility] 2020-08-26 2020-08-26 Outpatient STLMLC STLMLC [id number] Common 00:00:00 00:00:00 [facility] 2020-07-24 2020-07-24 Outpatient STLMLC STLMLC [id number] Common 00:00:00 00:00:00 [facility] 2020-07-03 2020-07-03 Outpatient STLMLC STLMLC [id number] Common 00:00:00 00:00:00 [facility] 2020-05-30 2020-05-30 Outpatient STLMLC STLMLC [id number] Common 00:00:00 00:00:00 [facility] 2020-04-25 2020-04-25 Outpatient STLMLC STLMLC [id number] Common 00:00:00 00:00:00 [facility] 2020-03-26 2020-03-26 Out[facility] [id number] Common 13:30:00 13:30:[address] [facility] 2019-12-13 2019-12-13 Outpatient [facility] [id number] Common 13:00:00 13:00:[address] [facility] 2019-11-28 2019-11-28 Outpatient [facility] [id number] Common 08:08:00 08:08:[address] [facility] 2019-08-03 2019-08-03 Outpatient [facility] [id number] Common 14:00:00 14:00:[address] [facility] 2019-05-25 2019-05-25 Outpatient [facility] [id number] Common 13:00:00 13:00:[address] [facility] 2019-02-22 2019-02-22 Outpatient [facility] [id number] Common 13:00:00 13:00:[address] [facility] 2019-02-15 2019-02-15 Outpatient [facility] [id number] Common 08:00:00 08:00:[address] [facility] 2019-01-11 2019-01-11 Outpatient [facility] [id number] Common 15:00:00 15:00:[address] [facility] 2018-03-21 2018-03-21 Outpatient [facility] [id number] Common 13:00:00 13:00:[address] [facility] 2018-02-18 2018-02-18 Outpatient [facility] [id number] Common 12:09:00 12:09:[address] [facility] 2018-02-14 2018-02-14 Outpatient [facility] [id number] Common 11:15:00 11:15:[address] [facility] 2018-01-19 2018-01-19 Outpatient [facility] [id number] Common 13:45:00 13:45:[address] [facility] Results This patient has no known results.
[2022-03-22] MEDS ORDERED: TRAMADOL HCL 50 MG TAB ONE (19:25)
--- NOTE | 2022-03-22 19:35 | RAD REPORT ---
EXAM DESCRIPTION: RAD - Knee Left 3 View - 03/22/2022 7:25 pm CLINICAL HISTORY: PAIN COMPARISON: KNEE W OBLIQUE ROUTINE dated 05/12/2008 FINDINGS/IMPRESSION: No acute fracture. No malalignment. Osteopenia. Severe narrowing in the medial compartment with [id number] contact. Enthesophytes along the proximal pole of the patella. Benign c artilaginous lesion in the distal femur of no clinical significance.
[2022-03-22 20:26] LABS: Urine Blood 1+ (Negative); Urine Glucose Negative (Negative); Urine Protein 3+ (Negative); Urine Specific Gravity 1.015 (1.005-1.030); Urine pH 8.5 (5.0-7.0)
[2022-03-22 20:45] LABS: Urine Bacteria >50 /HPF (<20)
--- NOTE | 2022-03-22 21:05 | EDPHYS ---
Physician Documentation [facility] Name: Lizett Baca Age: 76 yrs Sex: Female : 1945 Arrival Date: 03/22/2022 Time: 18:36 Bed 17 Private MD: ED Physician Jhonny Benavides HPI: 03/22 23:20 This 76 yrs old Black Female presents to ER via Wheelchair with complaints of Knee Pain.kb 23:20 The patient presents with pain. The complaints affect the left knee. Context: The kb problem was sustained at home, resulted from an unknown cause, the patient can partially bear weight, must have assistance. Onset: The symptoms/episode began/occurred 4 month(s) ago. Modifying factors: The symptoms are alleviated by nothing. the symptoms are aggravated by movement, weight bearing. Associated signs and symptoms: The patient has no apparent associated signs or symptoms. Treatment prior to arrival includes: no previous treatment. Severity of symptoms: At their worst the symptoms were moderate, in the emergency department the symptoms are unchanged. The patient has not experienced similar symptoms in the past. The patient has not recently seen a physician. Patient reports left knee pain that started 4 months ago. States pain is getting worse and making it harder to get around. Came in because she thinks she needs physical therapy. Also reports having to urinate frequently, but when she gets to the restroom she is unable to urinate. States she has back to her bed and ends up having accidents.. Historical: - Allergies: 18:51 Iodine; hb 18:51 Lisinopril; hb - PMHx: 18:51 diabetes mellitus; Hypertensive disorder; right ankle fracture; wound to left foot; hb ROS: 23:17 Constitutional: Negative for fever, chills, and weight loss. kb 23:17 : Positive for urinary symptoms, urinary frequency. 23:17 MS/extremity: Positive for pain, of the left knee. 23:17 All other systems are negative. Exam: 23:17 Constitutional: This is a well developed, well nourished patient who is awake, alert, kb and in no acute distress. Head/Face: Normocephalic, atraumatic. ENT: Moist Mucous membranes Cardiovascular: Regular rate and rhythm with a normal S1 and S2. No gallops, murmurs, or rubs. No pulse deficits. Respiratory: Respirations even and unlabored. No increased work of breathing. Talking in full sentences Abdomen/GI: Soft, non-tender. No distention Skin: Warm, dry with normal turgor. Normal color. Neuro: Awake and alert, GCS 15, oriented to person, place, time, and situation. Moves all extremities. Normal gait. Psych: Awake, alert, with orientation to person, place and time. Behavior, mood, and affect are within normal limits. 23:17 Musculoskeletal/extremity: Extremities: grossly normal except: noted in the left knee: pain, ROM: intact in all extremities, Circulation is intact in all extremities. Sensation intact. Weight bearing: can bear weight with assistance only. Vital Signs: 18:51 BP 233 / 96; Pulse 104; Resp 18; Temp 97.9(TE); Pulse Ox 98% on R/A; Pain 7/10; hb 20:15 BP 141 / 53; Pulse 80; Resp 18; Pulse Ox 98% on R/A; ll3 MDM: 19:00 Patient medically screened. kb 23:17 Data reviewed: vital signs, nurses notes. Data interpreted: Pulse oximetry: on room air kb is 98 %. Interpretation: normal. Counseling: I had a detailed discussion with the patient and/or guardian regarding: the historical points, exam findings, and any diagnostic results supporting the discharge/admit diagnosis, lab results, radiology results, the need for outpatient follow up, a family practitioner, to return to the emergency department if symptoms worsen or persist or if there are any questions or concerns that arise at home. 03/22 19:00 Order name: Urine Microscopic Only; Complete Time: 20:48 kb 03/22 20:26 Order name: Urine Dipstick-Ancillary; Complete Time: 20:26 [facility] 03/22 19:00 Order name: Knee Left 3 View XRAY; Complete Time: 19:39 kb 03/22 20:48 Order name: Urine Culture [facility] 03/22 19:00 Order name: Urine Dipstick-Ancillary (obtain specimen); Complete Time: 20:23 kb 03/22 20:19 Order name: Vital Signs; Complete Time: 20:23 kb Administered Medications: 19:27 Drug: traMADol 50 mg Route: PO; ll3 21:31 Drug: Augmentin (Amoxicillin-Clavulanate) 875 mg Route: PO; ll3 Disposition: 03/23 07:10 Co-signature as Attending Physician, Jhonny Benavides MD. rn Disposition Summary: 03/22/22 21:05 Discharge Ordered Location: Home kb Condition: Stable kb Diagnosis - Pain in left knee kb - UTI/ Urinary tract infection, site not specified kb Followup: kb - With: Emergency Department - When: As needed - Reason: Worsening of condition Followup: kb - With: Private Physician - When: 2 - 3 days - Reason: Recheck today's complaints, Continuance of care, Re-evaluation by your physician Discharge Instructions: - Discharge Summary Sheet kb - Urinary Tract Infection, Adult, [id number] kb - Acute Knee Pain, Adult, [id number] kb Forms: - Medication Reconciliation Form kb - Thank You Letter kb - Antibiotic Education kb - Prescription Opioid Use kb Prescriptions: - Augmentin 875-125 mg Oral Tablet - take 1 tablet by ORAL route every 12 hours for 10 days; 20 tablet; Refills: 0, kb Product Selection Permitted - Tramadol 50 mg Oral Tablet - take 1 tablet by ORAL route every 8 hours as needed; 12 tablet; Refills: 0, kb Product Selection Permitted Signatures: Dispatcher [employer] [facility] Grace Shaikh, MAJOR DONOR COORDINATOR-C MAJOR DONOR COORDINATOR-Ckb Jhonny Benavides MD MD rn Baxter, Heather RN Josy Fisher RN RN ll3
--- NOTE | 2022-03-22 21:05 | ER ---
Nurse's Notes [facility] Name: Lizett Baca Age: 76 yrs Sex: Female : 1945 Arrival Date: 03/22/2022 Time: 18:36 Bed 17 Private MD: Diagnosis: Pain in left knee;UTI/ Urinary tract infection, site not specified Presentation: 03/22 18:51 Chief complaint: Left knee pain x 3-4 months. Coronavirus screen: At this time, the hb client does not indicate any symptoms associated with coronavirus-19. Ebola Screen: No symptoms or risks identified at this time. Initial Sepsis Screen: Does the patient meet any 2 criteria? No. Patient's initial sepsis screen is negative. Does the patient have a suspected source of infection? No. Patient's initial sepsis screen is negative. Risk Assessment: Do you want to hurt yourself or someone else? Patient reports no desire to harm self or others. Onset of symptoms is unknown. 18:51 Method Of Arrival: Wheelchair hb 18:51 Acuity: MARIAA 4 hb Historical: - Allergies: 18:51 Iodine; hb 18:51 Lisinopril; hb - PMHx: 18:51 diabetes mellitus; Hypertensive disorder; right ankle fracture; wound to left foot; hb Screenin:00 Abuse screen: Denies threats or abuse. Nutritional screening: No deficits noted. ll3 Tuberculosis screening: No symptoms or risk factors identified. Fall Risk No fall in past 12 months (0 pts). No secondary diagnosis (0 pts). No IV (0 pts). Ambulatory Aid- Crutches/Cane/Walker (15 pts). Gait- Weak (10 pts.). Mental Status- Oriented to own ability (0 pts). Total Dwyer Fall Scale indicates Low Risk Score (25-44 pts). Fall prevention measures have been instituted. Side Rails Up X 2 Placed close to Nursing Station Frequent Obs/Assesments occuring Family Present and informed to notify staff if they need to leave bedside As available Patient and Family Educated on Fall Prevention Program and strategies. Vital Signs: 18:51 BP 233 / 96; Pulse 104; Resp 18; Temp 97.9(TE); Pulse Ox 98% on R/A; Pain 7/10; hb 20:15 BP 141 / 53; Pulse 80; Resp 18; Pulse Ox 98% on R/A; ll3 ED Course: 18:36 Patient arrived in ED. rg4 18:40 Grace Shaikh FNP-C is [facility]. kb 18:40 Jhonny Benavides MD is Attending Physician. kb 18:51 Arm band placed on. hb 18:57 Triage completed. hb 19:27 Knee Left 3 View XRAY In Process Unspecified. EDMS 21:00 Patient did not have IV access during this emergency room visit. ll3 21:00 No provider procedures requiring assistance completed. ll3 Administered Medications: 19:27 Drug: traMADol 50 mg Route: PO; ll3 21:31 Drug: Augmentin (Amoxicillin-Clavulanate) 875 mg Route: PO; ll3 Medication: 21:00 VIS not applicable for this client. ll3 Outcome: 21:00 Discharged to home via wheelchair, with family. ll3 21:00 Condition: stable 21:00 Discharge instructions given to patient, family, Instructed on discharge instructions, follow up and referral plans. medication usage, Demonstrated understanding of instructions, follow-up care, medications, Prescriptions given X 2. 21:05 Discharge ordered by . kb 21:50 Patient left the ED. ll3 Signatures: Dispatcher [employer] [facility] Grace Shaikh FNP-C FNP-Millicent Chen, RN RN Princess Bautista rg4 Josy Villalpando RN RN ll3
[2022-03-22] MEDS ORDERED: AMOX/K CLAV 875 MG TAB ONE (21:38)
[2022-03-22 23:11] VITALS: TEMP 97.9; O2SAT 98
[2022-03-22 23:17] VITALS: BP 141/53
== END 2022-03-22 21:50 | disposition home or self-care (01) ==
LOC: ER 18:32
DX: M25.562 Pain in left knee (principal); N39.0 Urinary tract infection, site not specified; E11.9 Type 2 diabetes mellitus without complications; I10 Essential (primary) hypertension; Z88.8 Allergy status to other drugs, medicaments and biological substances; Z91.048 Other nonmedicinal substance allergy status
CPT/HCPCS: 81003; 81015; 87086; 87088; 99283

== ENCOUNTER 2022-05-29 13:37 | Emergency (ER) | payer OTHER ==
--- OUTSIDE RECORDS SUMMARY | 2022-05-29 13:52 | XMS REPORT | Continuity of Care Document ---
:1945 Author Organization [facility] t Address [address] [place] [address] Care Team Providers Name Role Phone LORETO MAI Primary Care Physician Unavailable Loreto Mai Attending Clinician Unavailable JASMYN MON Attending Clinician Unavailable PETERSON HOLLAND Attending Clinician Unavailable KATHLEEN GOLDEN Attending Clinician Unavailable MERRICK VO Attending Clinician Unavailable DEYANIRA REDD Attending Clinician Unavailable Deyanira Redd DO Attending Clinician LAB90 Attending Clinician Unavailable DIANA RUIZ Attending Clinician Unavailable Diana Ruiz Attending Clinician TODD CURRY Attending Clinician Unavailable Jasmyn Mon MD Attending Clinician Doctor Unassigned, Melfa Attending Clinician Unavailable Robin Lundberg MD Attending Clinician ROBIN LUNDBERG Attending Clinician Unavailable JAYY SOLITARIO Attending Clinician Unavailable Ximena Potter Attending Clinician JASMYN MON Admitting Clinician Unavailable CLEO HAGAN Admitting Clinician Unavailable Cleo Hagan Admitting Clinician LETICIA PAVON Admitting Clinician Unavailable Ximena Potter Admitting Clinician Payers Payer Name Policy Type Policy Number Effective Date Expiration Date S nano WELLCARE/WELLCARE [id number] 2022 [place]AN[employer]US 00:00:00 MEDICARE PART A \\T\\ [id number] 2011 B 00:00:00 WELLCARE TXP [id number] 2022 CLASSIC NO PREMIUM 00:00:00 R2T WELLCARE [place] [id number] 2022 CLASSIC NO PREMIUM 00:00:00 [employer] [id number] 2021 (MEDICARE 00:00:00 REPLACEMENT HMO) Problems Condition Condition Condition Status Onset Resolution Last Treating Co mments Source Name Details Category Date Date Treatment Clinician Date Chronic Chronic Disease Active 2021-07 Merna constipati constipati 0-06 Se ybold on with on with 00:00: - overflow overflow 00 Statistics 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 Chronic Chronic Disease Active 2021-07 Merna venous venous 0-06 Seybold stasis stasis 00:00: - dermatitis dermatitis 00 Ex terna of both of both l lower lower extremitie extremitie s s Urinary Urinary Disease Active 2021-07 Merna retention retention 0-06 Seyb old 00:00: - 00 Externa l Kidney Kidney Disease Active 2021-07 Merna mass mass 0-06 Seybold 00:00: - 00 Externa l Well adult Well adult Disease Active 2021-07 K elsey exam exam 0-06 Seybold 00:00: - 00 Externa l Renal Renal Disease Active 2021-07 Merna insufficie insufficie 0-06 Se ybold ncy ncy 00:00: - 00 Externa l Chronic Chronic Disease Active 2021-07 Merna diastolic diastolic 0-06 Seyb 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 Added automatic ally from request for surgery [id number] OSTEOMYELI OSTEOMYEL Diagnosis Active 2015-10-18 Memoria TIS ITIS 09-16 08:11:00 l Active 00:00: Kei 09/16/2015 [facility] OSTEOMYELI OSTEOMYEL Diagnosis Active 2015-10-18 Memoria TIS, ITIS, 08:11:00 l UNSPECIFIE UNSPECIFIE He rmann D D Active [facility] OTHER OTHER Diagnosis Active 2022-04-08 Mem oria RETENTION RETENTION 21:51:00 l OF URINE OF URINE Evens n Active [facility] ACUTE ACUTE Diagnosis Active 2022-04-08 Mem oria KIDNEY KIDNEY 21:51:00 l FAILURE, FAILURE, Evens n UNSPECIFIE UNSPECIFIE D D Active [facility] URINARY URINARY Diagnosis Active 2022-04-08 Memoria TRACT TRACT 21:51:00 l INFECTION, INFECTION, He [facility] SITE NOT SITE NOT SPECIF SPECIF Active [facility] Diabetes Diabetes Problem Resolve 2022-04-05 Memoria mellitus mellitus d 23:22:04 l (disorder) (disorder) He rmann Resolved Problem 04/05/2022 [facility] Hypertensi Hypertens Problem Resolve 2022-04-05 Memoria ve demond d 23:22:04 l disorder, disorder, Herm nicole systemic systemic arterial arterial (disorder) (disorder) Resolved Problem 04/05/2022 [facility] [id number] Skin ulcer Problem Com mon of right Spirit lower leg, - [facility] limited to [facility] breakdown 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 - [facility] stage 3B disease St (disorder) [facility] Indwelling Indwelling Problem C ommon Solitario Solitario Spirit catheter catheter - [facility] present present [facility] [id number] Other Problem Common chronic Spirit pain - [facility] [id number] Asymptomat Problem Co mmon ic Spirit hypertensi - [facility] ve urgency [facility] Congestive Congestive Problem C omraleigh heart heart Spirit failure failure - [facility] Chronic Chronic Problem Common obstructiv obstructiv Sp minnie e e - [facility] pulmonary pulmonary [facility] Essential Benign Problem Common hypertensi essential Spi rit on HTN - [facility]I [facility] Gout Gout Problem Common Spirit - [facility] [id number] Iron Problem Common deficiency [facility] anemia, - [facility] unspecifie [facility] iron [facility] deficiency Medica l anemia Center type Type II Diabetes Problem Common diabetes type 2, Spirit mellitus controlled - CH I well [facility] [id number] Obstructiv Problem Com mon e sleep Spirit apnea - [facility] (adult) (pediatric [facility] ) [facility] [id number] Mixed Problem Common hyperlipid Spirit emia - CHI [facility] [id number] Hypocalcem Problem Comm on ia Spirit - CHI [facility] [id number] Primary Problem Comm on osteoarthr Spirit itis of - [facility]I left knee [facility] [id number] 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 Spirit enabling - [facility] machines [facility] [id number] Non Problem Common compliance Spirit with - [facility] medical [facility] [id number] +5th digit Problem Co mmon eff Spirit 04/25/20*Ch - CHI ronic kidney [facility] disease, Medical stage 3 Center (moderate) [id number] penitentiary Problem Com mon (current) Spirit use of - [facility] insulin [facility] [id number] Type 2 Problem Common diabetes Spirit mellitus - [facility] with diabetic [facility] kidney Center disease Allergies, Adverse Reactions, Alerts Allergy Allergy Status Severity Reaction(s) Onset Inactive Treating Comm ents Source Name Type Date Date Clinician LISINOPR DRUG Active [facility] [place] INGRED[place] 8- ity of 00:00: [address] Lisinopr Drug Active Other - See Uni vers il Allergy comments 03-20 ity of 00:00: [address] Lisinopr Propensi Active Swelling Other Eulalia ey il ty to 03-20 reaction( Seybold adverse 00:00: s): - reaction 00 Angioedem Exter na s a l IODINE DRUG Active Unknown-Cmnt Univ ers INGREDI 04-01 ity of 00:00: [place] 00 [facility] Iodine Propensi Active Swelling Other Merna ty to 04-01 reaction( Seybold adverse 00:00: s): - reaction 00 Unknown - Exter na s See l comments 8102 Drug Active Swelling Common allergy [facility] 463 Drug Active swelling Common allergy [facility] Social History Social Habit Start Date Stop Date Quantity Comments Source History of Common Spirit - Tobacco Use [facility] Exposure to 2022-04-23 2022-05-03 Not sure [facility]-CoV-2 00:00:00 17:09:00 [facility] (event) Branch Education 2022-04-30 2022-04-30 13 Merna Martinez - 00:00:00 00:00:00 External Alcohol intake 2022-04-30 2022-04-30 Lifetime Merna berg - 00:00:00 00:00:00 non-drinker External (finding) Social History 2022-03-27 2022-03-27 [facility] 03:24:12 03:24:12 Tobacco use and 2021-06-06 2021-06-06 Smokeless tobacco Un iversity of exposure 00:00:00 00:00:00 non-user [facility] Sex Assigned At [birth year] Merna Christina ybold - 00:00:00 00:00:00 External Smoking Status Start Date Stop Date Source Never smoked tobacco [facility] Medications Ordered Filled Start Stop Current Ordering Indication Dosage Frequency Signature Comments Components Source Medication Medication Date Date Medication? Clinician (SIG) Name Name cefpodoxime 2021-07- Yes [id number] 100mg Take 1 Univers 100 mg 17 tablet by ity of tablet 00:00: 04:59 mouth in [place] 00 :00 the Medical morning Branch and 1 tablet in the evening. Do all this for 7 days. Tramadol 2021-07- No 50mg Q.25D Take 50 mg K elsey HCl 50 MG 0-06 10-06 by mouth Seybo ld oral Tablet 10:49: 00:00 every 6 - 25 :00 hours as Externa needed for l pain hydroCHLORO 2021-07- No 12.5mg Take 12.5 Merna thiazide 0-06 10-06 mg by Seybold 12.5 MG 10:01: 00:00 mouth - oral 17 :00 daily Externa Capsule l Mometasone 2021-07- No 2{puff} Inhale 2 Merna Furo-Formot 0-06 10-06 puffs into S eybold christian Fum 09:38: 00:00 the lungs - (Dulera) 10 :00 2 times Externa 100-5 daily l MCG/ACT inhalation Aerosol Clonidine 2021-07 Yes .1mg Take 0.1 Eulalia ey HCl 0.1 MG 0-06 mg by Seybold oral Tablet 09:35: mouth 2 - 22 times Externa daily Take l orally as needed for BP > 140/90 Carvedilol 2021-07 Yes 6.25mg Take 6.25 Merna 6.25 MG 0-06 mg by Seybold oral Tablet 09:35: mouth in - 22 the Externa morning l and 6.25 mg in the evening. Take with meals. Furosemide 2021-07 Yes [id number] 20mg Take 1 Merna 20 MG oral 0-06 tablet (20 Sey bold Tablet 00:00: mg total) - 00 by mouth Externa daily l Docusate 2021-07 Yes [id number] 100mg Take 100 Merna Sodium 100 0-06 mg by Seybold MG oral 00:00: mouth - Tablet 00 daily Externa l Amoxicillin Yes 1{tbl} Take 1 Ke lsey -Pot 04-21 tablet by Seybold Clavulanate 00:00: mouth - 500-125 MG 00 every 12 Exter na oral Tablet hours FOR l 7 DAYS Augmentin Augmentin 2021- No 1{table Augmentin 500-125 MG 500-125 MG 04-21 t} 500-125 MG 00:00: 00:00 00 :00 Augmentin Augmentin 2021- No 1{table Augmentin 500-125 MG 500-125 MG 04-21 t} 500-125 MG 00:00: 00:00 00 :00 Kenalog-40 Yes Notes: Memor ia 9-08 "Preservat l 19:12: demond Free" [place] Marcaine Yes Notes: Memoria HCl with 9-08 (bupivacai l Epinephrine 19:12: ne-epi Herm nicole 0.5%-1:200, 00 0.5%-1:200 000 ,000 30 ml preservativ VL) Not e-free for use in injectable continuous solution infusion. (Same As: Marcaine w/Epi) Kenalog-40 Yes Notes: Memor ia 9-08 "Preservat l 19:12: demond Free" [place] Marcaine Yes Notes: Memoria HCl with 9-08 (bupivacai l Epinephrine 19:12: ne-epi Herm nicole 0.5%-1:200, 00 0.5%-1:200 000 ,000 30 ml preservativ VL) Not e-free for use in injectable continuous solution infusion. (Same As: Marcaine w/Epi) Kenalog-40 Yes Notes: Memor ia 9-08 "Preservat l 19:12: demond Free" [place] Marcaine Yes Notes: Memoria HCl with 9-08 (bupivacai l Epinephrine 19:12: ne-epi Herm nicole 0.5%-1:200, 00 0.5%-1:200 000 ,000 30 ml preservativ VL) Not e-free for use in injectable continuous solution infusion. (Same As: Marcaine w/Epi) MiraLax No Notes: Memoria 9-05 Dissolve l 22:52: in 8 oz of Kei 00 water or juice. (Same as: Miralax) MiraLax No Notes: Memoria 9-05 Dissolve l 22:52: in 8 oz of [place] 00 water or juice. (Same as: Miralax) MiraLax No Notes: Memoria 9-05 Dissolve l 22:52: in 8 oz of Kei 00 water or juice. (Same as: Miralax) cefepime + No Notes: Memor ia Sodium 9-05 (Same As: l Chloride 13:00: Maxipime) Herm nicole 0.9% IV 100 00 mL MEDICATION WASTE Product Size: 1000 mg Product Wasted: ___ mg cefepime + No Notes: Memor ia Sodium 9-05 (Same As: l Chloride 13:00: Maxipime) Herm nicole 0.9% IV 100 00 mL MEDICATION WASTE Product Size: 1000 mg Product Wasted: ___ mg cefepime + No Notes: Memor ia Sodium 9- (Same As: l Chloride 13:00: Maxipime) Herm nicole 0.9% IV 100 00 mL MEDICATION WASTE Product Size: 1000 mg Product Wasted: ___ mg naproxen No Notes: Memoria 03-28 (Same as: l 19:52: Naprosyn) Ke[place] 00 Take with food. naproxen No Notes: Memoria 03-28 (Same as: l 19:52: Naprosyn) [place] 00 Take with food. naproxen No Notes: Memoria 03-28 (Same as: l 19:52: Naprosyn) [place] 00 Take with food. atorvastati No Notes: Cornell ayaz n 03-28 (Same As: l 02:00: Lipitor) Kei atorvastati No Notes: Cornell ayaz n 9- (Same As: l 02:00: Lipitor) Kei atorvastati No Notes: Cornell ayaz n 9 (Same As: l 02:00: Lipitor) Kei 00 Flagyl No Notes: Memoria 03-27 (Same as: l 19:00: Flagyl) [place] 00 Take with food/ avoid alcohol Flagyl No Notes: Memoria 03-27 (Same as: l 19:00: Flagyl) Ke[place] 00 Take with food/ avoid alcohol Flagyl No Notes: Memoria 03-27 (Same as: l 19:00: Flagyl) [place] 00 Take with food/ avoid alcohol Coreg No Notes: Memoria 03-27 Give with l 14:00: food. [place] 00 (Same As: Coreg) cloNIDine No Notes: Memori a 0.3 mg oral 9-02 (Same As: l tablet 14:00: Catapres) Evens [place] 00 ferrous No Notes: Memoria sulfate 9-02 Give with l 14:00: food. "Do [place] 00 Not Crush" docusate No Notes: Memoria 9-02 (Same as: l 14:00: Colace) Kei 00 (Do Not Crush) Coreg No Notes: Memoria 9-02 Give with l 14:00: food. [place] 00 (Same As: Coreg) cloNIDine No Notes: Memori a 0.3 mg oral 9-02 (Same As: l tablet 14:00: Catapres) Evens n 00 ferrous No Notes: Memoria sulfate 9-02 Give with l 14:00: food. "Do [place] 00 Not Crush" docusate No Notes: Memoria 9-02 (Same as: l 14:00: Colace) Kei 00 (Do Not Crush) Coreg No Notes: Memoria 9-02 Give with l 14:00: food. [place] 00 (Same As: Coreg) cloNIDine No Notes: Memori a 0.3 mg oral 9-02 (Same As: l tablet 14:00: Catapres) [place] 00 ferrous No Notes: Memoria sulfate 9-02 Give with l 14:00: food. "Do [place] 00 Not Crush" docusate No Notes: Memoria 9-02 (Same as: l 14:00: Colace) [place] 00 (Do Not Crush) hydrALAZINE No Notes: Cornell ayaz 25 mg oral 9-02 (Same as: l tablet 05:00: Apresoline Lissa nn 00 ) May interfere w/enteral feedings Take With Food. heparin No Notes: Memoria 9-02 porcine l 05:00: heparin Kei 00 hydrALAZINE No Notes: Cornell ayaz 25 mg oral 9-02 (Same as: l tablet 05:00: Apresoline Lissa nn 00 ) May interfere w/enteral feedings Take With Food. heparin No Notes: Memoria - porcine l 05:00: heparin hydrALAZINE No Notes: Cornell ayaz 25 mg oral 03-27 (Same as: l tablet 05:00: Apresoline Lissa nn ) May interfere w/enteral feedings Take With Food. heparin No Notes: Memoria - porcine l 05:00: heparin ferrous 0 Yes 325 mg, Memoria sulfate 9-02 PO, TID, 0 l 03:37: Refill(s) Kei ferrous 0 Yes 325 mg, Memoria sulfate 9-02 PO, TID, 0 l 03:37: Refill(s) Kei ferrous Yes 325 mg, Memoria sulfate 9-02 PO, TID, 0 l 03:37: Refill(s) [place] amoxicillin Yes 1 tab, PO, Memoria -clavulanat 03-27 Q12H, # 20 l e 875 03:36: tab, 0 Kei mg-125 mg 00 Refill(s) oral tablet amoxicillin Yes 1 tab, PO, Memoria -clavulanat - Q12H, # 20 l e 875 03:36: tab, 0 Kei mg-125 mg 00 Refill(s) oral tablet amoxicillin Yes 1 tab, PO, Memoria -clavulanat - Q12H, # 20 l e 875 03:36: tab, 0 Kei mg-125 mg 00 Refill(s) oral tablet Coreg 6.25 Yes 6.25 mg = Me moria mg oral 03-27 1 tab, PO, l tablet 03:35: BID, # 60 Evens n 00 tab, 0 Refill(s) Coreg 6.25 Yes 6.25 mg = Me moria mg oral 03-27 1 tab, PO, l tablet 03:35: BID, # 60 Evens n 00 tab, 0 Refill(s) Coreg 6.25 Yes 6.25 mg = Me moria mg oral 03-27 1 tab, PO, l tablet 03:35: BID, # 60 Evens n 00 tab, 0 Refill(s) metFORMIN 0 Yes 1,000 mg, Mem oria 9-02 PO, BID, 0 l 03:33: Refill(s) tramadol 0 Yes 50 mg, PO, Mem oria 9-02 Q8H, PRN l 03:33: Pain, # 20 [place] 00 tab, 0 Refill(s) metFORMIN 0 Yes 1,000 mg, Mem oria 9-02 PO, BID, 0 l 03:33: Refill(s) tramadol 0 Yes 50 mg, PO, Mem oria 9-02 Q8H, PRN l 03:33: Pain, # 20 [place] 00 tab, 0 Refill(s) metFORMIN Yes 1,000 mg, Mem oria 9-02 PO, BID, 0 l 03:33: Refill(s) tramadol 0 Yes 50 mg, PO, Mem oria - Q8H, PRN l 03:33: Pain, # 20 Kei 00 tab, 0 Refill(s) hydrochloro 0 Yes 12.5 mg, Me moria thiazide 9-02 PO, Daily, l 03:32: 0 Kei 00 Refill(s) atorvastati Yes 10 mg = 1 M emoria n 10 mg 9-02 tab, PO, l oral tablet 03:32: Bedtime, # [place] 00 30 tab, 0 Refill(s) hydrochloro 0 Yes 12.5 mg, Me moria thiazide 9-02 PO, Daily, l 03:32: 0 Kei 00 Refill(s) atorvastati 0 Yes 10 mg = 1 M emoria n 10 mg 9-02 tab, PO, l oral tablet 03:32: Bedtime, # [place] 00 30 tab, 0 Refill(s) hydrochloro 0 Yes 12.5 mg, Me moria thiazide 9-02 PO, Daily, l 03:32: 0 [place] 00 Refill(s) atorvastati Yes 10 mg = 1 M emoria n 10 mg 9-02 tab, PO, l oral tablet 03:32: Bedtime, # Kei 00 30 tab, 0 Refill(s) losartan Yes 100 mg = 1 Mem oria 100 mg oral 03-27 tab, PO, l tablet 03:31: Daily, # Kei 00 30 tab, 0 Refill(s) losartan Yes 100 mg = 1 Mem oria 100 mg oral 02 tab, PO, l tablet 03:31: Daily, # Kei 00 30 tab, 0 Refill(s) losartan Yes 100 mg = 1 Mem oria 100 mg oral 03-27 tab, PO, l tablet 03:31: Daily, # [place] 00 30 tab, 0 Refill(s) senna No Notes: Memoria 03-27 (Same as: l 02:00: Senokot) [place] 00 cefepime + No Notes: Memor ia Sodium 03-27 (Same As: l Chloride 02:00: Maxipime) Herm nicole 0.9% IV 100 00 mL MEDICATION WASTE Product Size: 1000 mg Product Wasted: ___ mg Flagyl No Notes: Memoria 03-27 (Same as: l 02:00: Flagyl) Kei Avoid alcohol. senna No Notes: Memoria 03-27 (Same as: l 02:00: Senokot) [place] 00 cefepime + No Notes: Memor ia Sodium 03-27 (Same As: l Chloride 02:00: Maxipime) Herm nicole 0.9% IV 100 00 mL MEDICATION WASTE Product Size: 1000 mg Product Wasted: ___ mg Flagyl No Notes: Memoria 03-27 (Same as: l 02:00: Flagyl) Kei Avoid alcohol. senna No Notes: Memoria 03-27 (Same as: l 02:00: Senokot) Kei cefepime + No Notes: Memor ia Sodium 03-27 (Same As: l Chloride 02:00: Maxipime) Herm nicole 0.9% IV 100 00 mL MEDICATION WASTE Product Size: 1000 mg Product Wasted: ___ mg Flagyl No Notes: Memoria 03-27 (Same as: l 02:00: Flagyl) Kei 00 Avoid alcohol. NIFEdipine No Notes: Memor ia 30 mg oral 9-02 (Same as: l tablet, 01:34: Adalat CC, Herm nicole extended 00 Procardia release XL) Give on empty stomach. Take 1 hour before or 2 hours after meal; "Avoid grapefruit and grapefruit juice". Do not crush NIFEdipine No Notes: Memor ia 30 mg oral 9-02 (Same as: l tablet, 01:34: Adalat CC, Herm nicole extended 00 Procardia release XL) Give on empty stomach. Take 1 hour before or 2 hours after meal; "Avoid grapefruit and grapefruit juice". Do not crush NIFEdipine No Notes: Memor ia 30 mg oral 9-02 (Same as: l tablet, 01:34: Adalat CC, Herm nicole extended 00 Procardia release XL) Give on empty stomach. Take 1 hour before or 2 hours after meal; "Avoid grapefruit and grapefruit juice". Do not crush normal 0 No 1,000 mL, Memori a saline 0.9% 9-02 Rate: 75 l IV 1,000 mL 01:33: ml/hr, Herm nicole 00 Infuse over: 13.3 hr, Route: IV, Dosing Weight 113.636 kg, Total Volume: 1,000, Start date: 03/26/22 20:33:00 CDT, Duration: 30 day, Stop date: 04/25/22 20:32:00 CDT, BSA: 2.29 m2, 0 normal 2021-0 No 1,000 mL, Memori a saline 0.9% 9-02 Rate: 75 l IV 1,000 mL 01:33: ml/hr, Herm nicole 00 Infuse over: 13.3 hr, Route: IV, Dosing Weight 113.636 kg, Total Volume: 1,000, Start date: 03/26/22 20:33:00 CDT, Duration: 30 day, Stop date: 04/25/22 20:32:00 CDT, BSA: 2.29 m2, 0 normal 2021-0 No 1,000 mL, Memori a saline 0.9% 9-02 Rate: 75 l IV 1,000 mL 01:33: ml/hr, Herm nicole 00 Infuse over: 13.3 hr, Route: IV, Dosing Weight 113.636 kg, Total Volume: 1,000, Start date: 03/26/22 20:33:00 CDT, Duration: 30 day, Stop date: 04/25/22 20:32:00 CDT, BSA: 2.29 m2, 0 Dextrose 2-0 No 25 mL, Memoria 50% Syringe 03-27 Route: l (D50W) 00:54: IVP, Dosing Weight 113.636, kg, PRN, PRN Blood Glucose Results, Start date: 03/26/22 19:54:00 CDT, Duration: 30 day, Stop date: 04/25/22 19:53:00 CDT glucagon 2021-0 No 1 mg, Memoria 03-27 Route: IM, l 00:54: Drug form: [place] 00 PDR/INJ, PRN, Dosing Weight 113.636, kg, PRN Blood Glucose Results, Start date: 03/26/22 19:54:00 CDT, Duration: 30 day, Stop date: 04/25/22 19:53:00 CDT, 0 ondansetron 0 No Notes: Cornell ayaz 03-27 (Same as: l 00:54: Zofran) MEDICATION WASTE Product Size: 4 mg Product Wasted: ___ mg acetaminoph No Notes: Do Mock davidjosué en 03-27 not exceed l 00:54: 4 gm/day. (Same as: Tylenol) Dextrose 2021-0 No 25 mL, Memoria 50% Syringe 03-27 Route: l (D50W) 00:54: IVP, [place] 00 Dosing Weight 113.636, kg, PRN, PRN Blood Glucose Results, Start date: 03/26/22 19:54:00 CDT, Duration: 30 day, Stop date: 04/25/22 19:53:00 CDT glucagon 2021-0 No 1 mg, Memoria 03-27 Route: IM, l 00:54: Drug form: [place] 00 PDR/INJ, PRN, Dosing Weight 113.636, kg, PRN Blood Glucose Results, Start date: 03/26/22 19:54:00 CDT, Duration: 30 day, Stop date: 04/25/22 19:53:00 CDT, 0 ondansetron No Notes: Cornell ayaz 03-27 (Same as: l 00:54: Zofran) MEDICATION WASTE Product Size: 4 mg Product Wasted: ___ mg acetaminoph No Notes: Do Emili noyola en 03-27 not exceed l 00:54: 4 gm/day. [place] 00 (Same as: Tylenol) Dextrose No 25 mL, Memoria 50% Syringe 03-27 Route: l (D50W) 00:54: IVP, Dosing Weight 113.636, kg, PRN, PRN Blood Glucose Results, Start date: 03/26/22 19:54:00 CDT, Duration: 30 day, Stop date: 04/25/22 19:53:00 CDT glucagon No 1 mg, Memoria 03-27 Route: IM, l 00:54: Drug form: [place] 00 PDR/INJ, PRN, Dosing Weight 113.636, kg, PRN Blood Glucose Results, Start date: 03/26/22 19:54:00 CDT, Duration: 30 day, Stop date: 04/25/22 19:53:00 CDT, 0 ondansetron No Notes: Cornell ayaz 03-27 (Same as: l 00:54: Zofran) MEDICATION WASTE Product Size: 4 mg Product Wasted: ___ mg acetaminoph No Notes: Do Emili noyola en 03-27 not exceed l 00:54: 4 gm/day. Kei 00 (Same as: Tylenol) D10W No 250 mL, Memoria (bolus) IV 03-27 999 ml/hr, l 00:45: Route: Kei 00 IVPB, Drug Form: INJ, Dosing Weight 113.636, kg, PRN, PRN Blood Glucose Results, Start date: 03/26/22 19:45:00 CDT, Duration: 30 day, Stop date: 04/25/22 19:44:00 CDT, Infuse over: 0.3 hr, 0 D10W 2022-0 No 250 mL, Memoria (bolus) IV -02 999 ml/hr, l 00:45: Route: Kei IVPB, Drug Form: INJ, Dosing Weight 113.636, kg, PRN, PRN Blood Glucose Results, Start date: 03/26/22 19:45:00 CDT, Duration: 30 day, Stop date: 04/25/22 19:44:00 CDT, Infuse over: 0.3 hr, 0 D10W 2022-0 No 250 mL, Memoria (bolus) IV 02 999 ml/hr, l 00:45: Route: [place] IVPB, Drug Form: INJ, Dosing Weight 113.636, kg, PRN, PRN Blood Glucose Results, Start date: 03/26/22 19:45:00 CDT, Duration: 30 day, Stop date: 04/25/22 19:44:00 CDT, Infuse over: 0.3 hr, 0 Dextrose 2-0 No 25 mL, Memoria 50% Syringe 03-27 Route: l (D50W) 00:38: IVP, [place] 00 Dosing Weight 113.636, kg, PRN, PRN Blood Glucose Results, Start date: 03/26/22 19:38:00 CDT, Duration: 30 day, Stop date: 04/25/22 19:37:00 CDT glucagon 2022-0 No 1 mg, Memoria 03-27 Route: IM, l 00:38: Drug form: [place] 00 PDR/INJ, PRN, Dosing Weight 113.636, kg, PRN Blood Glucose Results, Start date: 03/26/22 19:38:00 CDT, Duration: 30 day, Stop date: 04/25/22 19:37:00 CDT, 0 Dextrose 2022-0 No 25 mL, Memoria 50% Syringe 03-27 Route: l (D50W) 00:38: IVP, [place] 00 Dosing Weight 113.636, kg, PRN, PRN Blood Glucose Results, Start date: 03/26/22 19:38:00 CDT, Duration: 30 day, Stop date: 04/25/22 19:37:00 CDT glucagon 2022-0 No 1 mg, Memoria 03-27 Route: IM, l 00:38: Drug form: [place] 00 PDR/INJ, PRN, Dosing Weight 113.636, kg, PRN Blood Glucose Results, Start date: 03/26/22 19:38:00 CDT, Duration: 30 day, Stop date: 04/25/22 19:37:00 CDT, 0 insulin 2021-0 No Notes: Memoria lispro - (Same as: l 00:38: Humalog) [place] Roll in palms of hands gently; Do not shake vigorously . WASTE: F/P - Black; E - Municipal Trash Bin Stable for 28 days at room temperatur e. Expires in days from ____Date insulin No Notes: Memoria lispro - (Same as: l 00:38: Humalog) [place] 00 Roll in palms of hands gently; Do not shake vigorously . WASTE: F/P - Black; E - Municipal Trash Bin Stable for 28 days at room temperatur e. Expires in days from ____Date Dextrose 2021-0 No 25 mL, Memoria 50% Syringe 03-27 Route: l (D50W) 00:38: IVP, Kei 00 Dosing Weight 113.636, kg, PRN, PRN Blood Glucose Results, Start date: 03/26/22 19:38:00 CDT, Duration: 30 day, Stop date: 04/25/22 19:37:00 CDT glucagon 2021-0 No 1 mg, Memoria 03-27 Route: IM, l 00:38: Drug form: Kei 00 PDR/INJ, PRN, Dosing Weight 113.636, kg, PRN Blood Glucose Results, Start date: 03/26/22 19:38:00 CDT, Duration: 30 day, Stop date: 04/25/22 19:37:00 CDT, 0 insulin 0 No Notes: Memoria lispro - (Same as: l 00:38: Humalog) Kei 00 Roll in palms of hands gently; Do not shake vigorously . WASTE: F/P - Black; E - Municipal Trash Bin Stable for 28 days at room temperatur e. Expires in days from ____Date Rocephin + 2021-0 No Notes: Memor ia Sodium 9-01 (Same As: l Chloride 23:59: Rocephin). Her kumari 0.9% IV 100 00 Use with mL 100 mL NS and infuse over 30 min MEDICATION WASTE Product Size: 1000 mg Product Wasted: ___ mg Rocephin + 2021-0 No Notes: Memor ia Sodium 9-01 (Same As: l Chloride 23:59: Rocephin). Her kumari 0.9% IV 100 00 Use with mL 100 mL NS and infuse over 30 min MEDICATION WASTE Product Size: 1000 mg Product Wasted: ___ mg Rocephin + 2021-0 No Notes: Memor ia Sodium 9-01 (Same As: l Chloride 23:59: Rocephin). Her kumari 0.9% IV 100 00 Use with mL 100 mL NS and infuse over 30 min MEDICATION WASTE Product Size: 1000 mg Product Wasted: ___ mg Sodium 2022-0 No 1,000 mL, Memori a Chloride 9-01 1000 l 0.9% 22:17: ml/hr, Kei (Bolus) IV 00 Infuse Over: 1 hr, Route: IV, 1,000, Drug form: INJ, ONCE, Priority: STAT, Dosing Weight 113.636 kg, Start date: 03/26/22 17:17:00 CDT, Stop date: 03/26/22 17:17:00 CDT, 0 Sodium 2022-0 No 1,000 mL, Memori a Chloride 9-01 1000 l 0.9% 22:17: ml/hr, Kei (Bolus) IV 00 Infuse Over: 1 hr, Route: IV, 1,000, Drug form: INJ, ONCE, Priority: STAT, Dosing Weight 113.636 kg, Start date: 03/26/22 17:17:00 CDT, Stop date: 03/26/22 17:17:00 CDT, 0 Sodium 2022-0 No 1,000 mL, Memori a Chloride 9-01 1000 l 0.9% 22:17: ml/hr, Kei (Bolus) IV 00 Infuse Over: 1 hr, Route: IV, 1,000, Drug form: INJ, ONCE, Priority: STAT, Dosing Weight 113.636 kg, Start date: 03/26/22 17:17:00 CDT, Stop date: 03/26/22 17:17:00 CDT, 0 Atorvastati Yes 10mg Take 10 mg Merna n Calcium 7-28 by mouth Seybol d 10 MG oral 00:00: daily - Tablet 00 Externa l Losartan Yes 100mg Take 100 Eulalia ey Potassium 7-28 mg by Seybold 100 MG oral 00:00: mouth - Tablet 00 daily Externa l Metformin Yes 1000mg Take 1,000 Merna HCl 1000 MG 7-28 mg by Seybold oral Tablet 00:00: mouth 2 - 00 times Externa daily l metFORMIN 2020-07 Yes 1000mg Take 1,000 [facility] 1,000 mg 1-17 mg by ity of tablet 09:07: mouth [place] 47 daily. [facility] carvediloL 2020-07 Yes 12.5mg Take 12.5 Univers 12.5 mg 1-17 mg by ity of tablet 09:07: mouth [place] 47 daily. [facility] furosemide 2020-07 Yes 20mg Take 20 mg U nivers 20 mg 1-17 by mouth ity of tablet 09:07: daily. [place] [address] [facility] losartan 2020-07 Yes 100mg Take 100 Univ ers 100 mg 1-17 mg by ity of tablet 09:07: mouth [place] 47 daily. [facility] amLODIPine 2020-07 Yes 10mg Take 10 mg U nivers 10 mg 1-17 by mouth ity of tablet 09:07: daily. [place] [address] [facility] cloNIDine 2020-07 Yes .3mg Take [...] by mouth ity of tablet 09:07: daily. [place] [address] [facility] losartan 2020-07 Yes 100mg Take 100 Univ ers 100 mg 1-17 mg by ity of tablet 09:07: mouth [place] 47 daily. [facility] amLODIPine 2020-07 Yes 10mg Take 10 mg U nivers 10 mg 1-17 by mouth ity of tablet 09:07: daily. [place] [address] [facility] cloNIDine 2020-07 Yes .3mg Take [...] by mouth ity of tablet 09:07: daily. [place] [address] [facility] losartan 2020-07 Yes 100mg Take 100 Univ ers 100 mg 1-17 mg by ity of tablet 09:07: mouth [place] 47 daily. [facility] amLODIPine 2020-07 Yes 10mg Take 10 mg U nivers 10 mg 1-17 by mouth ity of tablet 09:07: daily. [place] [address] [facility] cloNIDine 2020-07 Yes .3mg Take [...] by mouth ity of tablet 09:07: daily. [place] [address] [facility] losartan 2020-07 Yes 100mg Take 100 Univ ers 100 mg 1-17 mg by ity of tablet 09:07: mouth [place] 47 daily. [facility] amLODIPine 2020-07 Yes 10mg Take 10 mg U nivers 10 mg 1-17 by mouth ity of tablet 09:07: daily. [place] [address] [facility] cloNIDine 2020-07 Yes .3mg Take [...] by mouth ity of tablet 09:07: daily. [place] [address] [facility] losartan 2020-07 Yes 100mg Take 100 Univ ers 100 mg 1-17 mg by ity of tablet 09:07: mouth [place] 47 daily. [facility] amLODIPine 2020-07 Yes 10mg Take 10 mg U nivers 10 mg 1-17 by mouth ity of tablet 09:07: daily. [place] [address] [facility] cloNIDine 2020-07 Yes .3mg Take 0.3 Univ ers 0.3 mg 1-17 mg by ity of tablet 09:07: mouth as [place] 47 needed. [facility] Bupivicaine Bupivicaine No 2.5mg [place] Common (Triamcinol (Triamcinol 2-01 S pirit one) one) 00:00: - [facility] Bupivicaine Bupivicaine 0 No 2.5mg [place]01 Spirit 00:[facility] Common (Triamcinol (Triamcinol 2-01 S pirit one) one) 00:00: - [facility] Bupivicaine Bupivicaine No 2.5mg [place]01 Spirit 00:00: - [facility] Kenalog Kenalog 2020-0 No 40mg Common (Triamcinol (Triamcinol 2-01 S pirit one) one) 00:00: - [facility] Bupivicaine Bupivicaine 2020-0 No 2.5mg [place] Spirit 00:00: - [facility] 00 [facility] Kenalog Kenalog 2020-0 No 40mg Common (Triamcinol (Triamcinol 2-01 S pirit one) one) 00:00: - [facility] 00 [facility] Bupivicaine Bupivicaine 2020-0 No 2.5mg [place]- Spirit 00:00: - [facility] 00 [facility] Kenalog Kenalog 2020-0 No 40mg Common (Triamcinol (Triamcinol 2-01 S pirit one) one) 00:00: - [facility] Bupivicaine Bupivicaine 2020-0 No 2.5mg [place] Spirit 00:00: - [facility] 00 [facility] Kenalog Kenalog 2020-0 No 40mg Common (Triamcinol (Triamcinol 2-01 S pirit one) one) 00:00: - [facility] Bupivicaine Bupivicaine 2020-0 No 2.5mg Common [place]- Spirit 00:00: - [facility] 00 [facility] Kenalog Kenalog 2020-0 No 40mg Common (Triamcinol (Triamcinol 2-01 S pirit one) one) 00:00: - [facility] Bupivicaine Bupivicaine 2020-0 No 2.5mg [place] Spirit 00:00: - [facility] 00 [facility] Kenalog Kenalog 2020-0 No 40mg Common (Triamcinol (Triamcinol 2-01 S pirit one) one) 00:00: - [facility] Bupivicaine Bupivicaine 2020-0 No 2.5mg [place]- Spirit 00:00: - [facility] 00 [facility] Kenalog Kenalog 2020-0 No 40mg Common (Triamcinol (Triamcinol 2-01 S pirit one) one) 00:00: - [facility] Bupivicaine Bupivicaine 2020-0 No 2.5mg [place] Spirit 00:00: - [facility] Kenalog Kenalog 2020-0 No 40mg Common (Triamcinol (Triamcinol 2-01 S pirit one) one) 00:00: - [facility] Bupivicaine Bupivicaine 2020-0 No 2.5mg [place] Spirit 00:00: - [facility] 00 [facility] Kenalog Kenalog 2020-0 No 40mg Common (Triamcinol (Triamcinol 2-01 S pirit one) one) 00:00: - [facility] Bupivicaine Bupivicaine 2020-0 No 2.5mg [place] Spirit 00:00: - [facility] 00 [facility] Kenalog Kenalog 2020-0 No 40mg Common (Triamcinol (Triamcinol 2-01 S pirit one) one) 00:00: - [facility] Bupivicaine Bupivicaine 2020-1 No 2.5mg Common [place] 1[place]05 Spirit 00:00: - [facility] 00 [facility] Kenalog Kenalog 2019-1 No 40mg Common (Triamcinol (Triamcinol 1-05 S pirit one) one) 00:00: - [facility] Bupivicaine Bupivicaine 2020-1 No 2.5mg Common [place] 1[place]05 Spirit 00:00: - [facility] 00 [facility] Kenalog Kenalog 2019-1 No 40mg Common (Triamcinol (Triamcinol 1-05 S pirit one) one) 00:00: - [facility] 00 [facility] Bupivicaine Bupivicaine 2020-1 No 2.5mg [place] 1-05 Spirit 00:00: - [facility] 00 [facility] Kenalog Kenalog 2020-1 No 40mg Common (Triamcinol (Triamcinol 1-05 S pirit one) one) 00:00: - [facility] Bupivicaine Bupivicaine 2020-1 No 2.5mg Common [place] 1-05 Spirit 00:00: - [facility] 00 [facility] Kenalog Kenalog 2019- No 40mg Common (Triamcinol (Triamcinol 1-05 S pirit one) one) 00:00: - [facility] 00 [facility] Bupivicaine Bupivicaine 2020-1 No 2.5mg Common [place] 1[place]05 Spirit 00:00: - [facility] 00 [facility] Kenalog Kenalog 2019- No 40mg Common (Triamcinol (Triamcinol 1-05 S pirit one) one) 00:00: - [facility] 00 [facility] Bupivicaine Bupivicaine 2020- No 2.5mg Common [place] 1-05 Spirit 00:00: - [facility] 00 [facility] Kenalog Kenalog 2019- No 40mg Common (Triamcinol (Triamcinol 1-05 S pirit one) one) 00:00: - [facility] 00 [facility] Bupivicaine Bupivicaine 2020-1 No 2.5mg Common [place] 1[place]05 Spirit 00:00: - [facility] 00 [facility] Kenalog Kenalog 2019-1 No 40mg Common (Triamcinol (Triamcinol 1-05 S pirit one) one) 00:00: - [facility] Bupivicaine Bupivicaine 2020-1 No 2.5mg Common [place] 1-05 Spirit 00:00: - [facility] 00 [facility] Kenalog Kenalog 2020-1 No 40mg Common (Triamcinol (Triamcinol 1-05 S pirit one) one) 00:00: - [facility] Bupivicaine Bupivicaine 2020-1 No 2.5mg Common [place] 1-05 Spirit 00:00: - [facility] 00 [facility] Kenalog Kenalog 2020- No 40mg Common (Triamcinol (Triamcinol 1-05 S pirit one) one) 00:00: - [facility] Bupivicaine Bupivicaine 2020-1 No 2.5mg Common [place] 1-05 Spirit 00:00: - [facility] 00 [facility] Kenalog Kenalog 2019- No 40mg Common (Triamcinol (Triamcinol 1-05 S pirit one) one) 00:00: - [facility] Bupivicaine Bupivicaine 2019- No 2.5mg Common [place] 1-05 Spirit 00:00: - [facility] Kenalog Kenalog 2019- No 40mg Common (Triamcinol (Triamcinol 1-05 S pirit one) one) 00:00: - [facility] 00 [facility] Bupivicaine Bupivicaine 2019- No 2.5mg Common [place] 1-05 Spirit 00:00: - [facility] 00 [facility] Kenalog Kenalog 2019- No 40mg Common (Triamcinol (Triamcinol 1-05 S pirit one) one) 00:00: - [facility] 00 [facility] Atorvastati Atorvastati 2019-0 Yes [place] 1 tablet Common n Calcium n Calcium 7-31 Mai Spir it 00:00: - [facility] 00 [facility] Hydralazine 2016-0 Yes 25 mg = 1 M emoria Hydrochlori 2-27 tab, PO, l de 25 MG 13:22: Q8H, # 90 Herm nicole Oral Tablet 00 tab, 0 Refill(s) Clonidine 0 Yes 0.3 mg = 1 Me moria Hydrochlori 2-27 tab, PO, l de 0.3 MG 13:22: TID, # 90 Her kumari Oral Tablet 00 tab, 0 Refill(s) valsartan 0 Yes 320 mg = 2 Me moria 160 mg oral 2-27 tab, PO, l tablet 13:22: Daily, # [place] 00 30 tab, 0 Refill(s) Hydralazine 2016-0 Yes 25 mg = 1 M emoria Hydrochlori 2-27 tab, PO, l de 25 MG 13:22: Q8H, # 90 Herm nicole Oral Tablet 00 tab, 0 Refill(s) Clonidine 2015-0 Yes 0.3 mg = 1 Me moria Hydrochlori 2-27 tab, PO, l de 0.3 MG 13:22: TID, # 90 Her kumari Oral Tablet 00 tab, 0 Refill(s) valsartan Yes 320 mg = 2 Me moria 160 mg oral 2-27 tab, PO, l tablet 13:22: Daily, # Kei 00 30 tab, 0 Refill(s) Hydralazine Yes 25 mg = 1 M emoria Hydrochlori 2-27 tab, PO, l de 25 MG 13:22: Q8H, # 90 Herm nicole Oral Tablet 00 tab, 0 Refill(s) Clonidine Yes 0.3 mg = 1 Me moria Hydrochlori 2-27 tab, PO, l de 0.3 MG 13:22: TID, # 90 Her kumari Oral Tablet 00 tab, 0 Refill(s) valsartan Yes 320 mg = 2 Me moria 160 mg oral 2-27 tab, PO, l tablet 13:22: Daily, # Kei 00 30 tab, 0 Refill(s) valsartan No Notes: Memori a 2-26 Same as l 15:00: Diovan Kei valsartan No Notes: Memori a 2-26 Same as l 15:00: Diovan [place] 00 valsartan No Notes: Memori a 2-26 Same as l 15:00: Diovan [place]i 00 Calmoseptin No Notes: [facility] ayaz e 2-25 (Same as: l 21:22: Calmosepti Kei ne) Calmoseptin No Notes: [facility] ayaz e 2-25 (Same as: l 21:22: Calmosepti Kei ne) Calmoseptin No Notes: [facility] ayaz e 2-25 (Same as: l 21:22: Calmosepti [place] 00 ne) Magnesium No Notes: Memori a Sulfate 2-25 WASTE: F/P l 20:00: - Sink; E - Municipal Trash Bin Magnesium No Notes: Memori a Sulfate 2-25 WASTE: F/P l 20:00: - Sink; - Municipal Trash Bin Magnesium No Notes: Memori a Sulfate 2-25 WASTE: F/P l 20:00: - Sink; E [place] 00 - Municipal Trash Bin valsartan No Notes: Memori a 2-25 Same as l 15:00: Diovan [place] 00 valsartan No Notes: Memori a 2-25 Same as l 15:00: Diovan [place] 00 valsartan No Notes: Memori a 2-25 Same as l 15:00: Diovan [place] Hydralazine No Notes: [facility] ayaz Hydrochlori 2-25 (Same as: l de 25 MG 14:00: Apresoline Her kumari Oral Tablet 00 ) May interfere w/enteral feedings Take With Food. Hydralazine No Notes: [facility] ayaz Hydrochlori 2-25 (Same as: l de 25 MG 14:00: Apresoline Her kumari Oral Tablet 00 ) May interfere w/enteral feedings Take With Food. Hydralazine No Notes: [facility] ayaz Hydrochlori 2-25 (Same as: l de 25 MG 14:00: Apresoline Her kumari Oral Tablet 00 ) May interfere w/enteral feedings Take With Food. potassium No Notes: Memori a chloride 2-25 (Same as: l 12:58: K-Dur 20) Kei 00 "Do Not Crush" With food and full glass of water potassium No Notes: Memori a chloride 2-25 (Same as: l 12:58: K-Dur 20) [place] "Do Not Crush" With food and full glass of water potassium No Notes: Memori a chloride 2-25 (Same as: l 12:58: K-Dur 20) Kei "Do Not Crush" With food and full glass of water Amlodipine No 1 tab, PO, M emoria 10 MG / 2-25 Daily, # l valsartan 12:57: 30 tab, 0 Her kumari 320 MG Oral 00 Refill(s) Tablet Amlodipine No 1 tab, PO, M emoria 10 MG / 2-25 Daily, # l valsartan 12:57: 30 tab, 0 Her kumari 320 MG Oral 00 Refill(s) Tablet Amlodipine No 1 tab, PO, M emoria 10 MG / 2-25 Daily, # l valsartan 12:57: 30 tab, 0 Her kumari 320 MG Oral 00 Refill(s) Tablet Aspirin 325 No Notes: (Do Memoria MG Oral 2-24 Not Crush) l Tablet 20:00: Do not [place] 00 crush or chew. Aspirin 325 No Notes: (Do Memoria MG Oral 2-24 Not Crush) l Tablet 20:00: Do not Kei 00 crush or chew. Aspirin 325 No Notes: (Do Memoria MG Oral 2-24 Not Crush) l Tablet 20:00: Do not Kei 00 crush or chew. valsartan No Notes: Memori a 2-24 Same as l 15:02: Diovan [place] 00 valsartan No Notes: Memori a 2-24 Same as l 15:02: Diovan [place] valsartan No Notes: Memori a 2-24 Same as l 15:02: Diovan [place] 00 Furosemide No Daily, 0 Mem oria 2-23 Refill(s) l 22:31: [place] 00 Furosemide No Daily, 0 Mem oria 2-23 Refill(s) l 22:31: [place] 00 Furosemide No Daily, 0 Mem oria 2-23 Refill(s) l 22:31: [place] 00 heparin No Notes: Memoria sodium, 2-23 porcine l porcine 22:00: heparin [place] 2500 UNT/ML 00 Injectable Solution heparin No Notes: Memoria sodium, 2-23 porcine l porcine 22:00: heparin [place] 2500 UNT/ML 00 Injectable Solution heparin No Notes: Memoria sodium, 2-23 porcine l porcine 22:00: heparin Kei 2500 UNT/ML 00 Injectable Solution Lisinopril No Notes: Memor ia 2-23 (Same as: l 20:30: Prinivil, [place] 00 Zestril) Lisinopril No Notes: Memor ia 2-23 (Same as: l 20:30: Prinivil, [place] 00 Zestril) Lisinopril No Notes: Memor ia 2-23 (Same as: l 20:30: Prinivil, Kei 00 Zestril) Hydralazine No Notes: [facility] ayaz Hydrochlori 2-23 (Same as: l de 25 MG 20:00: Apresoline Her kumari Oral Tablet 00 ) Hydralazine No Notes: [facility] ayaz Hydrochlori 2-23 (Same as: l de 25 MG 20:00: Apresoline Her kumari Oral Tablet 00 ) Hydralazine No Notes: [facility] ayaz Hydrochlori 2-23 (Same as: l de 25 MG 20:00: Apresoline Her kumari Oral Tablet 00 ) Cardene 40 No Notes: Memor ia mg in NS 2- Same as: l 200 mL 15:44: Cardene [place] (Titrate.) 00 Concentrat IV 40 mg ion: (0.2 mg /1 ml ) Cardene 40 No Notes: Memor ia mg in NS 2- Same as: l 200 mL 15:44: Cardene Kei (Titrate.) 00 Concentrat IV 40 mg ion: (0.2 mg /1 ml ) Cardene 40 No Notes: Memor ia mg in NS 2- Same as: l 200 mL 15:44: Cardene [place] (Titrate.) 00 Concentrat IV 40 mg ion: (0.2 mg /1 ml ) pneumococca No Notes: [facility] ayaz l capsular 2-23 (Same as: l polysacchar 15:00: Pneumovax H ermann elvis type ) vaccine / Refrigerat pneumococca e l capsular polysacchar elvis type 10A vaccine / pneumococca l capsular polysacchar elvis type 11A vaccine / pneumococca l capsular polysacchar elvis type 12F vaccine / pneumococca l capsular polysacchar pneumococca No Notes: [facility] ayaz l capsular 2-23 (Same as: l polysacchar 15:00: Pneumovax H ermann elvis type 23) vaccine / Refrigerat pneumococca e l capsular polysacchar elvis type 10A vaccine / pneumococca l capsular polysacchar elvis type 11A vaccine / pneumococca l capsular polysacchar elvis type 12F vaccine / pneumococca l capsular polysacchar pneumococca No Notes: [facility] ayaz l capsular 2-23 (Same as: l polysacchar 15:00: Pneumovax H ermann elvis type 23) vaccine / Refrigerat pneumococca e l capsular polysacchar elvis type 10A vaccine / pneumococca l capsular polysacchar elvis type 11A vaccine / pneumococca l capsular polysacchar elvis type 12F vaccine / pneumococca l capsular polysacchar Diltiazem No Notes: Memori a 2-23 (Same as: l 14:36: Cardizem) Diltiazem No Notes: Memori a 2-23 (Same as: l 14:36: Cardizem) Diltiazem No Notes: Memori a 2-23 (Same as: l 14:36: Cardizem) Clonidine No Notes: Memori a Hydrochlori 2-23 (Same As: l de 0.3 MG 03:00: Catapres) Her kumari Oral Tablet Clonidine No Notes: Memori a Hydrochlori 2-23 (Same As: l de 0.3 MG 03:00: Catapres) Her kumari Oral Tablet Clonidine No Notes: Memori a Hydrochlori 2-23 (Same As: l de 0.3 MG 03:00: Catapres) Her kumari Oral Tablet 00 Hydralazine No Notes: [facility] ayaz 2-23 (Same as: l 02:51: Apresoline ) Push over 5 minutes Hydralazine No Notes: [facility] ayaz 2-23 (Same as: l 02:51: Apresoline ) Push over 5 minutes Hydralazine No Notes: [facility] ayaz 2-23 (Same as: l 02:51: Apresoline ) Push over 5 minutes Insulin, No Notes: Memoria Aspart, 2-23 Roll in l Human 02:16: palms of hands gently; Do not shake vigorously . (Same as: NovoLOG) "single patient use only" WASTE: F/P - Black; E - Municipal Trash Bin Stable for 28 days at room temperatur e. Expires in days from ____Date Glucagon No 1 mg, Memoria 2-23 Route: IM, l 02:16: Drug form: PDR/INJ, PRN, Dosing Weight 107.727, kg, PRN Blood Glucose Results, Start date: 09/16/15 20:16:00, Duration: 30 day, Stop date: 10/16/15 21:15:00 Dextrose 2016-0 No 25 gm, 50 Cornell ayaz 50% Syringe 2-23 mL, Route: l 02:16: IVP, Drug Kei 00 Form: INJ, Dosing Weight 107.727, kg, PRN, PRN Blood Glucose Results, Start date: 09/16/15 20:16:00, Duration: 30 day, Stop date: 10/16/15 21:15:00 Insulin, 2016-0 No Notes: Memoria Aspart, 2-23 Roll in l Human 02:16: palms of Kei 00 hands gently; Do not shake vigorously . (Same as: NovoLOG) "single patient use only" WASTE: F/P - Black; E - Municipal Trash Bin Stable for 28 days at room temperatur e. Expires in days from ____Date Glucagon 2015-0 No 1 mg, Memoria 2-23 Route: IM, l 02:16: Drug form: Kei 00 PDR/INJ, PRN, Dosing Weight 107.727, kg, PRN Blood Glucose Results, Start date: 09/16/15 20:16:00, Duration: 30 day, Stop date: 10/16/15 21:15:00 Dextrose 2016-0 No 25 gm, 50 Cornell ayaz 50% Syringe 2-23 mL, Route: l 02:16: IVP, Drug Kei 00 Form: INJ, Dosing Weight 107.727, kg, PRN, PRN Blood Glucose Results, Start date: 09/16/15 20:16:00, Duration: 30 day, Stop date: 10/16/15 21:15:00 Insulin, 2016-0 No Notes: Memoria Aspart, 2-23 Roll in l Human 02:16: palms of [place] 00 hands gently; Do not shake vigorously . (Same as: NovoLOG) "single patient use only" WASTE: F/P - Black; E - Municipal Trash Bin Stable for 28 days at room temperatur e. Expires in days from ____Date Glucagon 2016-0 No 1 mg, Memoria 2-23 Route: IM, l 02:16: Drug form: Kei 00 PDR/INJ, PRN, Dosing Weight 107.727, kg, PRN Blood Glucose Results, Start date: 09/16/15 20:16:00, Duration: 30 day, Stop date: 10/16/15 21:15:00 Dextrose 2015- No 25 gm, 50 [facility] ayaz 50% Syringe 2-23 mL, Route: l 02:16: IVP, Drug [place] 00 Form: INJ, Dosing Weight 107.727, kg, PRN, PRN Blood Glucose Results, Start date: 09/16/15 20:16:00, Duration: 30 day, Stop date: 10/16/15 21:15:00 Acetaminoph No Notes: Do M emoria en 2-23 not exceed l 02:15: 4 gm/day. [place] 00 (Same as: Tylenol) Acetaminoph No Notes: Cornell ayaz en 325 MG / 2-23 (Same as: l Hydrocodone 02:15: Worden Lissa nn Bitartrate 00 325/5) Do 5 MG Oral not exceed Tablet 4gm/day of acetaminop hen. Morphine No Notes: Memoria 2-23 (Same l 02:15: as:MORPhin [place] 00 e Sulfate) Acetaminoph No Notes: Do M emoria en 2-23 not exceed l 02:15: 4 gm/day. [place] 00 (Same as: Tylenol) Acetaminoph No Notes: [facility] ayaz en 325 MG / 2-23 (Same as: l Hydrocodone 02:15: Worden Lissa nn Bitartrate 00 325/5) Do 5 MG Oral not exceed Tablet 4gm/day of acetaminop hen. Morphine No Notes: Memoria 2-23 (Same l 02:15: as:MORPhin [place] 00 e Sulfate) Acetaminoph No Notes: Do M emoria en 2-23 not exceed l 02:15: 4 gm/day. Kei 00 (Same as: Tylenol) Acetaminoph No Notes: Cornell ayaz en 325 MG / 2-23 (Same as: l Hydrocodone 02:15: Worden Lissa nn Bitartrate 00 325/5) Do 5 MG Oral not exceed Tablet 4gm/day of acetaminop hen. Morphine No Notes: Memoria 2-23 (Same l 02:15: as:MORPhin e Sulfate) Home No Refill(s) Memoria Medication 2-23 0 l 01:21: Metformin No PO, BID, 0 Me moria 2-23 Refill(s) l 01:21: Clonidine No TID, 0 Memori a 2-23 Refill(s) l 01:21: Home No Refill(s) Memoria Medication 2-23 0 l 01:21: Metformin No PO, BID, 0 Me moria 2-23 Refill(s) l 01:21: Clonidine No TID, 0 Memori a 2-23 Refill(s) l 01:21: Home No Refill(s) Memoria Medication 2-23 0 l 01:21: Metformin No PO, BID, 0 Me moria 2-23 Refill(s) l 01:21: Clonidine No TID, 0 Memori a 2-23 Refill(s) l 01:21: Ferrous Ferrous Yes [place] 1 tablet Com mon Sulfate Sulfate Mai [facility] Lexi Lexi Yes [place] 1 tablet Common Aspirin Aspirin Mai [facility] Clonidine Clonidine Yes [place] 1 tablet Common HCl HCl Mai [facility] Coreg Coreg Yes [place] 1 tablet Common Mai with food [facility] Yes [place] 1 tablet Com mon Mai [facility] Metformin Metformin Yes [place] 1 tablet Common HCl HCl Mai with meals [facility] Ipratropium Ipratropium Yes [place] USE 3 ML Common -Albuterol -Albuterol Mai VIA Sp minnie NEBULIZER [facility] EVERY [address] HOU[address] [facility] Losartan Losartan Yes [place] 1 tablet C ommon Potassium Potassium Mai Spir it - [facility] Norvasc 10 Norvasc 10 No 1{table QD Norvasc 10 MG MG t} MG Atorvastati Atorvastati No 1{table QD Atorvastat n Calcium n Calcium t} in Calcium 10 MG 10 MG 10 MG Coreg 3.125 Coreg 3.125 No 1{table BID Coreg MG MG t_with_ 3.125 MG food} cloNIDine cloNIDine No 1{table cloNIDine HCl 0.3 MG HCl 0.3 MG t} HCl 0.3 MG Allopurinol Allopurinol No 1{table QD Allopurino 300 MG 300 MG t} l 300 MG amLODIPine amLODIPine No amLODIPine Besylate Besylate Besylate Ferrous Ferrous No 1{table TID Ferrous Sulfate 325 Sulfate 325 t} Sulfate (65 Fe) MG (65 Fe) MG 325 (65 Fe) MG Atorvastati Atorvastati No 1{table QD Atorvastat n Calcium n Calcium t} in Calcium 10 MG 10 MG 10 MG Norvasc 10 Norvasc 10 No 1{table QD Norvasc 10 MG MG t} MG Lexi Lexi No 1{table QD Lexi Aspirin 325 Aspirin 325 t} Aspirin MG MG 325 MG Ipratropium Ipratropium No 3{ml} QID Ipratropiu -Albuterol -Albuterol m-Albutero 0.5-2.5 (3) 0.5-2.5 (3) l 0.5-2.5 MG/3ML MG/3ML (3) MG/3ML metFORMIN metFORMIN No metFORMIN HCl 1000 MG HCl 1000 MG HCl 1000 MG Ipratropium Ipratropium No Ipratropiu -Albuterol -Albuterol m-Albutero 0.5-2.5 (3) 0.5-2.5 (3) l 0.5-2.5 MG/3ML MG/3ML (3) MG/3ML Losartan Losartan No Losartan Potassium Potassium Potassium 100 MG 100 MG 100 MG Norvasc 10 Norvasc 10 No 1{table QD Norvasc 10 MG MG t} MG Losartan Losartan No Losartan Potassium Potassium Potassium 100 MG 100 MG 100 MG cloNIDine cloNIDine No 1{table cloNIDine HCl 0.3 MG HCl 0.3 MG t} HCl 0.3 MG metFORMIN metFORMIN No metFORMIN HCl 1000 MG HCl 1000 MG HCl 1000 MG Atorvastati Atorvastati No 1{table QD Atorvastat n Calcium n Calcium t} in Calcium 10 MG 10 MG 10 MG Ipratropium Ipratropium No Ipratropiu -Albuterol -Albuterol m-Albutero 0.5-2.5 (3) 0.5-2.5 (3) l 0.5-2.5 MG/3ML MG/3ML (3) MG/3ML Atorvastati Atorvastati No 1{table QD Atorvastat n Calcium n Calcium t} in Calcium 10 MG 10 MG 10 MG Coreg 3.125 Coreg 3.125 No 1{table BID Coreg MG MG t_with_ 3.125 MG food} amLODIPine amLODIPine No amLODIPine Besylate Besylate Besylate Lexi Lexi No 1{table QD Lexi Aspirin 325 Aspirin 325 t} Aspirin MG MG 325 MG Ipratropium Ipratropium No 3{ml} QID Ipratropiu -Albuterol -Albuterol m-Albutero 0.5-2.5 (3) 0.5-2.5 (3) l 0.5-2.5 MG/3ML MG/3ML (3) MG/3ML Norvasc 10 Norvasc 10 No 1{table QD Norvasc 10 MG MG t} MG Allopurinol Allopurinol No 1{table QD Allopurino 300 MG 300 MG t} l 300 MG Ferrous Ferrous No 1{table TID Ferrous Sulfate 325 Sulfate 325 t} Sulfate (65 Fe) MG (65 Fe) MG 325 (65 Fe) MG Norvasc 10 Norvasc 10 No 1{table QD Norvasc 10 MG MG t} MG Losartan Losartan No Losartan Potassium Potassium Potassium 100 MG 100 MG 100 MG cloNIDine cloNIDine No 1{table cloNIDine HCl 0.3 MG HCl 0.3 MG t} HCl 0.3 MG metFORMIN metFORMIN No metFORMIN HCl 1000 MG HCl 1000 MG HCl 1000 MG Atorvastati Atorvastati No 1{table QD Atorvastat n Calcium n Calcium t} in Calcium 10 MG 10 MG 10 MG Ipratropium Ipratropium No Ipratropiu -Albuterol -Albuterol m-Albutero 0.5-2.5 (3) 0.5-2.5 (3) l 0.5-2.5 MG/3ML MG/3ML (3) MG/3ML Atorvastati Atorvastati No 1{table QD Atorvastat n Calcium n Calcium t} in Calcium 10 MG 10 MG 10 MG Coreg 3.125 Coreg 3.125 No 1{table BID Coreg MG MG t_with_ 3.125 MG food} amLODIPine amLODIPine No amLODIPine Besylate Besylate Besylate [place] No 1{table QD Lexi Aspirin 325 Aspirin 325 t} Aspirin MG MG 325 MG Ipratropium Ipratropium No 3{ml} QID Ipratropiu -Albuterol -Albuterol m-Albutero 0.5-2.5 (3) 0.5-2.5 (3) l 0.5-2.5 MG/3ML MG/3ML (3) MG/3ML Norvasc 10 Norvasc 10 No 1{table QD Norvasc 10 MG MG t} MG Allopurinol Allopurinol No 1{table QD Allopurino 300 MG 300 MG t} l 300 MG Ferrous Ferrous No 1{table TID Ferrous Sulfate 325 Sulfate 325 t} Sulfate (65 Fe) MG (65 Fe) MG 325 (65 Fe) MG Norvasc 10 Norvasc 10 No 1{table QD Norvasc 10 MG MG t} MG Losartan Losartan No Losartan Potassium Potassium Potassium 100 MG 100 MG 100 MG cloNIDine cloNIDine No 1{table cloNIDine HCl 0.3 MG HCl 0.3 MG t} HCl 0.3 MG metFORMIN metFORMIN No metFORMIN HCl 1000 MG HCl 1000 MG HCl 1000 MG Atorvastati Atorvastati No 1{table QD Atorvastat n Calcium n Calcium t} in Calcium 10 MG 10 MG 10 MG Ipratropium Ipratropium No Ipratropiu -Albuterol -Albuterol m-Albutero 0.5-2.5 (3) 0.5-2.5 (3) l 0.5-2.5 MG/3ML MG/3ML (3) MG/3ML Atorvastati Atorvastati No 1{table QD Atorvastat n Calcium n Calcium t} in Calcium 10 MG 10 MG 10 MG Coreg 3.125 Coreg 3.125 No 1{table BID Coreg MG MG t_with_ 3.125 MG food} amLODIPine amLODIPine No amLODIPine Besylate Besylate Besylate [place] No 1{table QD Lexi Aspirin 325 Aspirin 325 t} Aspirin MG MG 325 MG Ipratropium Ipratropium No 3{ml} QID Ipratropiu -Albuterol -Albuterol m-Albutero 0.5-2.5 (3) 0.5-2.5 (3) l 0.5-2.5 MG/3ML MG/3ML (3) MG/3ML Norvasc 10 Norvasc 10 No 1{table QD Norvasc 10 MG MG t} MG Allopurinol Allopurinol No 1{table QD Allopurino 300 MG 300 MG t} l 300 MG Ferrous Ferrous No 1{table TID Ferrous Sulfate 325 Sulfate 325 t} Sulfate (65 Fe) MG (65 Fe) MG 325 (65 Fe) MG Norvasc 10 Norvasc 10 No 1{table QD Norvasc 10 MG MG t} MG Atorvastati Atorvastati No 1{table QD Atorvastat n Calcium n Calcium t} in Calcium 10 MG 10 MG 10 MG cloNIDine cloNIDine No 1{table cloNIDine HCl 0.3 MG HCl 0.3 MG t} HCl 0.3 MG metFORMIN metFORMIN No BID metFORMIN HCl 1000 MG HCl 1000 MG HCl 1000 MG Atorvastati Atorvastati No 1{table QD Atorvastat n Calcium n Calcium t} in Calcium 10 MG 10 MG 10 MG Ipratropium Ipratropium No Ipratropiu -Albuterol -Albuterol m-Albutero 0.5-2.5 (3) 0.5-2.5 (3) l 0.5-2.5 MG/3ML MG/3ML (3) MG/3ML Losartan Losartan No QD Losartan Potassium Potassium Potassium 100 MG 100 MG 100 MG Coreg 3.125 Coreg 3.125 No 1{table BID Coreg MG MG t_with_ 3.125 MG food} amLODIPine amLODIPine No amLODIPine Besylate Besylate Besylate Lexi Lexi No 1{table QD Lexi Aspirin 325 Aspirin 325 t} Aspirin MG MG 325 MG Ipratropium Ipratropium No 3{ml} QID Ipratropiu -Albuterol -Albuterol m-Albutero 0.5-2.5 (3) 0.5-2.5 (3) l 0.5-2.5 MG/3ML MG/3ML (3) MG/3ML Norvasc 10 Norvasc 10 No 1{table QD Norvasc 10 MG MG t} MG Allopurinol Allopurinol No 1{table QD Allopurino 300 MG 300 MG t} l 300 MG Ferrous Ferrous No 1{table TID Ferrous Sulfate 325 Sulfate 325 t} Sulfate (65 Fe) MG (65 Fe) MG 325 (65 Fe) MG Norvasc 10 Norvasc 10 No 1{table QD Norvasc 10 MG MG t} MG Atorvastati Atorvastati No 1{table QD Atorvastat n Calcium n Calcium t} in Calcium 10 MG 10 MG 10 MG cloNIDine cloNIDine No 1{table cloNIDine HCl 0.3 MG HCl 0.3 MG t} HCl 0.3 MG metFORMIN metFORMIN No BID metFORMIN HCl 1000 MG HCl 1000 MG HCl 1000 MG Atorvastati Atorvastati No 1{table QD Atorvastat n Calcium n Calcium t} in Calcium 10 MG 10 MG 10 MG Ipratropium Ipratropium No Ipratropiu -Albuterol -Albuterol m-Albutero 0.5-2.5 (3) 0.5-2.5 (3) l 0.5-2.5 MG/3ML MG/3ML (3) MG/3ML Losartan Losartan No QD Losartan Potassium Potassium Potassium 100 MG 100 MG 100 MG Coreg 3.125 Coreg 3.125 No 1{table BID Coreg MG MG t_with_ 3.125 MG food} amLODIPine amLODIPine No amLODIPine Besylate Besylate Besylate Lexi Lexi No 1{table QD Lexi Aspirin 325 Aspirin 325 t} Aspirin MG MG 325 MG Ipratropium Ipratropium No 3{ml} QID Ipratropiu -Albuterol -Albuterol m-Albutero 0.5-2.5 (3) 0.5-2.5 (3) l 0.5-2.5 MG/3ML MG/3ML (3) MG/3ML Norvasc 10 Norvasc 10 No 1{table QD Norvasc 10 MG MG t} MG Allopurinol Allopurinol No 1{table QD Allopurino 300 MG 300 MG t} l 300 MG Ferrous Ferrous No 1{table TID Ferrous Sulfate 325 Sulfate 325 t} Sulfate (65 Fe) MG (65 Fe) MG 325 (65 Fe) MG Norvasc 10 Norvasc 10 No 1{table QD Norvasc 10 MG MG t} MG Atorvastati Atorvastati No 1{table QD Atorvastat n Calcium n Calcium t} in Calcium 10 MG 10 MG 10 MG cloNIDine cloNIDine No 1{table cloNIDine HCl 0.3 MG HCl 0.3 MG t} HCl 0.3 MG metFORMIN metFORMIN No BID metFORMIN HCl 1000 MG HCl 1000 MG HCl 1000 MG Atorvastati Atorvastati No 1{table QD Atorvastat n Calcium n Calcium t} in Calcium 10 MG 10 MG 10 MG Ipratropium Ipratropium No Ipratropiu -Albuterol -Albuterol m-Albutero 0.5-2.5 (3) 0.5-2.5 (3) l 0.5-2.5 MG/3ML MG/3ML (3) MG/3ML Losartan Losartan No QD Losartan Potassium Potassium Potassium 100 MG 100 MG 100 MG Coreg 3.125 Coreg 3.125 No 1{table BID Coreg MG MG t_with_ 3.125 MG food} amLODIPine amLODIPine No amLODIPine Besylate Besylate Besylate Lexi Lexi No 1{table QD Lexi Aspirin 325 Aspirin 325 t} Aspirin MG MG 325 MG Ipratropium Ipratropium No 3{ml} QID Ipratropiu -Albuterol -Albuterol m-Albutero 0.5-2.5 (3) 0.5-2.5 (3) l 0.5-2.5 MG/3ML MG/3ML (3) MG/3ML Norvasc 10 Norvasc 10 No 1{table QD Norvasc 10 MG MG t} MG Allopurinol Allopurinol No 1{table QD Allopurino 300 MG 300 MG t} l 300 MG Ferrous Ferrous No 1{table TID Ferrous Sulfate 325 Sulfate 325 t} Sulfate (65 Fe) MG (65 Fe) MG 325 (65 Fe) MG Atorvastati Atorvastati No 1{table QD Atorvastat n Calcium n Calcium t} in Calcium 10 MG 10 MG 10 MG Losartan Losartan No QD Losartan Potassium Potassium Potassium 100 MG 100 MG 100 MG Coreg 3.125 Coreg 3.125 No 1{table BID Coreg MG MG t_with_ 3.125 MG food} Ferrous Ferrous No 1{table TID Ferrous Sulfate 325 Sulfate 325 t} Sulfate (65 Fe) MG (65 Fe) MG 325 (65 Fe) MG cloNIDine cloNIDine No 1{table cloNIDine HCl 0.3 MG HCl 0.3 MG t} HCl 0.3 MG Norvasc 10 Norvasc 10 No 1{table QD Norvasc 10 MG MG t} MG amLODIPine amLODIPine No amLODIPine Besylate Besylate Besylate Lexi Lexi No 1{table QD Lexi Aspirin 325 Aspirin 325 t} Aspirin MG MG 325 MG metFORMIN metFORMIN No BID metFORMIN HCl 1000 MG HCl 1000 MG HCl 1000 MG Ipratropium Ipratropium No Ipratropiu -Albuterol -Albuterol m-Albutero 0.5-2.5 (3) 0.5-2.5 (3) l 0.5-2.5 MG/3ML MG/3ML (3) MG/3ML Allopurinol Allopurinol No 1{table QD Allopurino 300 MG 300 MG t} l 300 MG Norvasc 10 Norvasc 10 No 1{table QD Norvasc 10 MG MG t} MG Atorvastati Atorvastati No 1{table QD Atorvastat n Calcium n Calcium t} in Calcium 10 MG 10 MG 10 MG metFORMIN metFORMIN No 1{table BID metFORMIN HCl 1000 MG HCl 1000 MG t_with_ HCl 1000 meals} MG Losartan Losartan No 1{table QD Losartan Potassium Potassium t} Potassium 100 MG 100 MG 100 MG Ipratropium Ipratropium No 3{ml} QID Ipratropiu -Albuterol -Albuterol m-Albutero 0.5-2.5 (3) 0.5-2.5 (3) l 0.5-2.5 MG/3ML MG/3ML (3) MG/3ML Ferrous Ferrous No 1{table TID Ferrous Sulfate 325 Sulfate 325 t} Sulfate (65 Fe) MG (65 Fe) MG 325 (65 Fe) MG Atorvastati Atorvastati No 1{table QD Atorvastat n Calcium n Calcium t} in Calcium 10 MG 10 MG 10 MG Coreg 3.125 Coreg 3.125 No 1{table BID Coreg MG MG t_with_ 3.125 MG food} cloNIDine cloNIDine No 1{table cloNIDine HCl 0.3 MG HCl 0.3 MG t} HCl 0.3 MG Norvasc 10 Norvasc 10 No 1{table QD Norvasc 10 MG MG t} MG amLODIPine amLODIPine No amLODIPine Besylate Besylate Besylate Lexi Lexi No 1{table QD Lexi Aspirin 325 Aspirin 325 t} Aspirin MG MG 325 MG Atorvastati Atorvastati No 1{table QD Atorvastat n Calcium n Calcium t} in Calcium 10 MG 10 MG 10 MG metFORMIN metFORMIN No BID metFORMIN HCl 1000 MG HCl 1000 MG HCl 1000 MG Ipratropium Ipratropium No Ipratropiu -Albuterol -Albuterol m-Albutero 0.5-2.5 (3) 0.5-2.5 (3) l 0.5-2.5 MG/3ML MG/3ML (3) MG/3ML Ipratropium Ipratropium No 3{ml} QID Ipratropiu -Albuterol -Albuterol m-Albutero 0.5-2.5 (3) 0.5-2.5 (3) l 0.5-2.5 MG/3ML MG/3ML (3) MG/3ML Norvasc 10 Norvasc 10 No 1{table QD Norvasc 10 MG MG t} MG Allopurinol Allopurinol No 1{table QD Allopurino 300 MG 300 MG t} l 300 MG metFORMIN metFORMIN No 1{table BID metFORMIN HCl 1000 MG HCl 1000 MG t_with_ HCl 1000 meals} MG Losartan Losartan No 1{table QD Losartan Potassium Potassium t} Potassium 100 MG 100 MG 100 MG Losartan Losartan No QD Losartan Potassium Potassium Potassium 100 MG 100 MG 100 MG Ferrous Ferrous No 1{table TID Ferrous Sulfate 325 Sulfate 325 t} Sulfate (65 Fe) MG (65 Fe) MG 325 (65 Fe) MG Atorvastati Atorvastati No 1{table QD Atorvastat n Calcium n Calcium t} in Calcium 10 MG 10 MG 10 MG Coreg 3.125 Coreg 3.125 No 1{table BID Coreg MG MG t_with_ 3.125 MG food} cloNIDine cloNIDine No 1{table cloNIDine HCl 0.3 MG HCl 0.3 MG t} HCl 0.3 MG Norvasc 10 Norvasc 10 No 1{table QD Norvasc 10 MG MG t} MG amLODIPine amLODIPine No amLODIPine Besylate Besylate Besylate [place] No 1{table QD Lexi Aspirin 325 Aspirin 325 t} Aspirin MG MG 325 MG Atorvastati Atorvastati No 1{table QD Atorvastat n Calcium n Calcium t} in Calcium 10 MG 10 MG 10 MG metFORMIN metFORMIN No BID metFORMIN HCl 1000 MG HCl 1000 MG HCl 1000 MG Ipratropium Ipratropium No Ipratropiu -Albuterol -Albuterol m-Albutero 0.5-2.5 (3) 0.5-2.5 (3) l 0.5-2.5 MG/3ML MG/3ML (3) MG/3ML Ipratropium Ipratropium No 3{ml} QID Ipratropiu -Albuterol -Albuterol m-Albutero 0.5-2.5 (3) 0.5-2.5 (3) l 0.5-2.5 MG/3ML MG/3ML (3) MG/3ML Norvasc 10 Norvasc 10 No 1{table QD Norvasc 10 MG MG t} MG Allopurinol Allopurinol No 1{table QD Allopurino 300 MG 300 MG t} l 300 MG metFORMIN metFORMIN No 1{table BID metFORMIN HCl 1000 MG HCl 1000 MG t_with_ HCl 1000 meals} MG Losartan Losartan No 1{table QD Losartan Potassium Potassium t} Potassium 100 MG 100 MG 100 MG Losartan Losartan No QD Losartan Potassium Potassium Potassium 100 MG 100 MG 100 MG Atorvastati Atorvastati No 1{table QD Atorvastat n Calcium n Calcium t} in Calcium 10 MG 10 MG 10 MG Losartan Losartan No QD Losartan Potassium Potassium Potassium 100 MG 100 MG 100 MG Coreg 3.125 Coreg 3.125 No 1{table BID Coreg MG MG t_with_ 3.125 MG food} Ferrous Ferrous No 1{table TID Ferrous Sulfate 325 Sulfate 325 t} Sulfate (65 Fe) MG (65 Fe) MG 325 (65 Fe) MG cloNIDine cloNIDine No 1{table cloNIDine HCl 0.3 MG HCl 0.3 MG t} HCl 0.3 MG Norvasc 10 Norvasc 10 No 1{table QD Norvasc 10 MG MG t} MG amLODIPine amLODIPine No amLODIPine Besylate Besylate Besylate Lexi Lexi No 1{table QD Lexi Aspirin 325 Aspirin 325 t} Aspirin MG MG 325 MG metFORMIN metFORMIN No BID metFORMIN HCl 1000 MG HCl 1000 MG HCl 1000 MG Ipratropium Ipratropium No Ipratropiu -Albuterol -Albuterol m-Albutero 0.5-2.5 (3) 0.5-2.5 (3) l 0.5-2.5 MG/3ML MG/3ML (3) MG/3ML Allopurinol Allopurinol No 1{table QD Allopurino 300 MG 300 MG t} l 300 MG Norvasc 10 Norvasc 10 No 1{table QD Norvasc 10 MG MG t} MG Atorvastati Atorvastati No 1{table QD Atorvastat n Calcium n Calcium t} in Calcium 10 MG 10 MG 10 MG metFORMIN metFORMIN No 1{table BID metFORMIN HCl 1000 MG HCl 1000 MG t_with_ HCl 1000 meals} MG Losartan Losartan No 1{table QD Losartan Potassium Potassium t} Potassium 100 MG 100 MG 100 MG Ipratropium Ipratropium No 3{ml} QID Ipratropiu -Albuterol -Albuterol m-Albutero 0.5-2.5 (3) 0.5-2.5 (3) l 0.5-2.5 MG/3ML MG/3ML (3) MG/3ML Losartan Losartan No 1{table QD Losartan Potassium Potassium t} Potassium 100 MG 100 MG 100 MG metFORMIN metFORMIN No metFORMIN HCl 1000 MG HCl 1000 MG HCl 1000 MG Lexi Lexi No 1{table QD Lexi Aspirin 325 Aspirin 325 t} Aspirin MG MG 325 MG Atorvastati Atorvastati No 1{table QD Atorvastat n Calcium n Calcium t} in Calcium 10 MG 10 MG 10 MG Norvasc 10 Norvasc 10 No 1{table QD Norvasc 10 MG MG t} MG Atorvastati Atorvastati No 1{table QD Atorvastat n Calcium n Calcium t} in Calcium 10 MG 10 MG 10 MG Coreg 3.125 Coreg 3.125 No 1{table BID Coreg MG MG t_with_ 3.125 MG food} Norvasc 10 Norvasc 10 No 1{table QD Norvasc 10 MG MG t} MG Ipratropium Ipratropium No 3{ml} QID Ipratropiu -Albuterol -Albuterol m-Albutero 0.5-2.5 (3) 0.5-2.5 (3) l 0.5-2.5 MG/3ML MG/3ML (3) MG/3ML Allopurinol Allopurinol No 1{table QD Allopurino 300 MG 300 MG t} l 300 MG Ferrous Ferrous No 1{table TID Ferrous Sulfate 325 Sulfate 325 t} Sulfate (65 Fe) MG (65 Fe) MG 325 (65 Fe) MG Ipratropium Ipratropium No Ipratropiu -Albuterol -Albuterol m-Albutero 0.5-2.5 (3) 0.5-2.5 (3) l 0.5-2.5 MG/3ML MG/3ML (3) MG/3ML cloNIDine cloNIDine No 1{table cloNIDine HCl 0.3 MG HCl 0.3 MG t} HCl 0.3 MG Immunizations Ordered Immunization Filled Immunization Date Status Commen ts Source Name Name Influenza Virus 2022-04-30 Completed [facility] orourke Vaccine, 00:00:00 - External Quadrivalent, High Dose, Age 65 And Up pneumococcal 2015-09-17 Completed [facility] 23-valent vaccine 13:28:00 [place] pneumococcal 2015-09-17 Completed [facility] 23-valent vaccine 13:28:00 [place] pneumococcal 2015-09-17 Completed [facility] 23-valent vaccine 13:28:00 [place] Vital Signs Vital Name Observation Time Observation Value Comments Source Systolic blood 2022-05-03 191 mm[Hg] erp aware, pt [facility] pressure 23:11:00 asymptomatic, [facility] pt did not take [facility] home BP meds Diastolic blood 2022-05-03 81 mm[Hg] erp aware, pt [facility] of pressure 23:11:00 asymptomatic, [facility] pt did not take [facility] home BP meds Heart rate 2022-05-03 79 /min [facility] 23:11:00 [facility] Respiratory rate 2022-05-03 18 /min [facility] 23:11:00 [facility] Oxygen saturation 2022-05-03 96 /min [facility] in Arterial blood 23:11:00 [facility] by Pulse oximetry [place] Body temperature 2022-05-03 37.33 Juanita [facility] of 20:59:00 [facility] Body weight 2022-05-03 117.935 kg University 20:59:00 [facility] BMI 2022-05-03 46.06 kg/m2 University 20:59:00 [facility] Systolic blood 2022-04-30 127 mm[Hg] Merna Seybol d - pressure 14:17:00 External Diastolic blood 2022-04-30 96 mm[Hg] Merna Fuentes ld - pressure 14:17:00 External Heart rate 2022-04-30 66 /min Merna Martinez - 14:17:00 External Body temperature 2022-04-30 35.67 Juanita Merna ruiz - 14:17:00 External Respiratory rate 2022-04-30 15 /min Merna ruiz - 14:17:00 External Body height 2022-04-30 160 cm Merna Martinez - 14:17: External height 2022-04-21 63 [in_i] [facility] - 15:00:00 [facility] weight 2022-04-21 222 [lb_av] [facility] - 15:00:00 [facility] bmi 2022-04-21 39.32 kg/m2 [facility] - 15:00:00 [facility] height 2021-12-02 63 [in_i] [facility] - 15:00:00 [facility] weight 2021-12-02 222 [lb_av] [facility] - 15:00:00 [facility] bmi 2021-12-02 39.32 kg/m2 [facility] - 15:00:00 [facility] blood pressure 2021-12-02 138 mm[Hg] [facility] - systolic 15:00:00 [facility] blood pressure 2021-12-02 88 mm[Hg] [facility] - diastolic 15:00:00 [facility] height 2021-11-24 63 [in_i] [facility] - 10:00:00 [facility] weight 2021-11-24 222 [lb_av] [facility] - 10:00:00 [facility] temperature 2021-11-24 97.3 [degF] [facility] - 10:00:00 [facility] bmi 2021-11-24 39.32 kg/m2 [facility] - 10:00:00 [facility] blood pressure 2021-11-24 142 mm[Hg] [facility] - systolic 10:00:00 [facility] blood pressure 2021-11-24 90 mm[Hg] [facility] - diastolic 10:00:00 [facility] Systolic blood 2021-06-11 132 mm[Hg] [facility] pressure 15:05:00 [facility] Diastolic blood 2021-06-11 73 mm[Hg] [facility] f pressure 15:05:00 [facility] Heart rate 2021-06-11 72 /min [facility] 15:05:00 [facility] Body height 2021-06-11 160 cm [facility] 15:05:00 [facility] Body weight 2021-06-11 107.956 kg [facility] of 15:05:00 [facility] BMI 2021-06-11 42.16 kg/m2 [facility] of 15:05:00 [facility] Oxygen saturation 2021-06-11 96 /min [facility] in Arterial blood 15:05:00 [facility] by Pulse oximetry [facility] Systolic blood 2021-06-11 132 mm[Hg] [facility] pressure 15:05:00 [facility] Diastolic blood 2021-06-11 73 mm[Hg] [facility] o f pressure 15:05:00 [facility] Heart rate 2021-06-11 72 /min [facility] of 15:05:00 [facility] Body height 2021-06-11 160 cm [facility] of 15:05:00 [facility] Body weight 2021-06-11 107.956 kg [facility] of 15:05:00 [facility] BMI 2021-06-11 42.16 kg/m2 [facility] of 15:05:00 [facility] Oxygen saturation 2021-06-11 96 /min [facility] in Arterial blood 15:05:00 [facility] [place] by Pulse oximetry [facility] Heart Rate 2022-04-03 [facility] 16:22:38 Respitory Rate 2022-04-03 [facility] 16:22:38 Systolic (mm Hg) 2022-04-03 [facility] 16:22:25 Diastolic (mm Hg) 2022-04-03 [facility] 16:22:25 Heart Rate 2022-04-03 [facility] 16:22:25 Temperature Oral 2022-04-03 98.3 F [facility] (F) 16:21:58 Heart Rate 2022-04-03 [facility] 12:44:46 Respitory Rate 2022-04-03 [facility] 12:44:46 Systolic (mm Hg) 2022-04-03 [facility] 12:44:41 Diastolic (mm Hg) 2022-04-03 [facility] 12:44:41 Systolic (mm Hg) 2022-04-03 [facility] 09:40:38 Diastolic (mm Hg) 2022-04-03 [facility] 09:40:38 Temperature Oral 2022-04-03 98.1 F [facility] (F) 09:39:52 Temperature Oral 2022-04-03 98.2 F [facility] (F) 05:14:54 Respitory Rate 2022-04-02 [facility] 21:04:00 Heart Rate 2022-03-30 [facility] 05:18:32 Systolic (mm Hg) 2022-03-30 [facility] 05:18:28 Diastolic (mm Hg) 2022-03-30 [facility] 05:18:28 Heart Rate 2022-03-30 [facility] 05:18:28 Temperature Oral 2022-03-30 98.1 F [facility] (F) 05:17:32 Heart Rate 2022-03-30 [facility] 00:23:14 Systolic (mm Hg) 2022-03-30 [facility] 00:23:05 Diastolic (mm Hg) 2022-03-30 [facility] 00:23:05 Temperature Oral 2022-03-30 97.9 F [facility] (F) 00:22:03 Respitory Rate 2022-03-29 [facility] 21:56:57 Systolic (mm Hg) 2022-03-29 [facility] 21:56:53 Diastolic (mm Hg) 2022-03-29 [facility] 21:56:53 Temperature Oral 2022-03-29 98.2 F [facility] (F) 21:55:35 Respitory Rate 2022-03-29 [facility] 17:37:42 Respitory Rate 2022-03-29 [facility] 13:30:10 Height 2022-03-27 160.02 cm [facility] 02:05:00 Weight 2022-03-27 [facility] 02:05:00 BMI Calculated 2022-03-27 [facility] 02:05:00 Height 2022-03-26 160.02 cm [facility] 19:58:00 BMI Calculated 2022-03-26 [facility] 19:58:00 Weight 2022-03-26 [facility] 19:58:00 Systolic (mm Hg) 2015-09-21 [facility] 16:00:00 Diastolic (mm Hg) 2015-09-21 [facility] 16:00:00 Respitory Rate 2015-09-21 [facility] 16:00:00 Systolic (mm Hg) 2015-09-21 [facility] 13:52:00 Diastolic (mm Hg) 2015-09-21 [facility] 13:52:00 Temperature Oral 2015-09-21 98 F [facility] (F) 13:52:00 Respitory Rate 2015-09-21 [facility] 13:52:00 Systolic (mm Hg) 2015-09-21 [facility] 12:00:00 Diastolic (mm Hg) 2015-09-21 [facility] 12:00:00 Respitory Rate 2015-09-21 [facility] 12:00:00 Temperature Oral 2015-09-21 98.0 F [facility] (F) 11:03:00 Temperature Oral 2015-09-21 97.6 F [facility] (F) 06:38:00 Heart Rate 2015-09-17 [facility] 13:16:00 Heart Rate 2015-09-17 [facility] 13:15:00 Heart Rate 2015-09-17 Brandie Marmolejoan n 09:31:00 BMI Calculated 2015-09-17 [facility] 01:27:00 Height 2015-09-17 160.02 cm [facility] 01:27:00 Weight 2015-09-17 [facility] 01:27:00 Procedures Procedure Date / Time Performing Clinician Source Performed URINALYSIS 2022-05-03 22:06:00 Deyanira Redd [facility] [place] 2022-04-30 15:23:58 Merrick Vo - External EXTERNAL PROVIDER - ADC 2021-07-09 06:01:00 Doctor Unassigned, N o [facility] CARDIOLOGY [facility] Branch HB ECG ROUTINE & RHYTHM 2021-06-11 15:11:49 Robin Lundberg [facility] AUTHORIZATION TO RELEASE 2021-06-11 06:01:00 Doctor Unassigned, No [facility] PHI TO [facility] Name Medical Branch Encounters Start End Encounter Admission Attending Care Care Encounter Source Date/Time Date/Time Type Type Clinicians Facility Department ID 2022-05-01 Outpatient Mai, STLMLC STLML[facility] [id number] Common 14:25:00 [facility] 2022-04-29 Outpatient Mai, STLMLC STLMLC [id number] Common 09:20:00 [facility] 2022-04-28 Outpatient Mai, STLMLC STLMLC [id number] Common 10:18:00 [facility] 2022-04-20 Outpatient Mai, STLMLC STLMLC [id number] Common 11:32:01 [facility] 2022-04-07 Outpatient Mai, STLMLC STLMLC [id number] Common 11:26:00 [facility] 2022-04-03 Outpatient [facility] [id number] [place] 16:43:[id number] [place] [address] 2021-11-21 Outpatient Mai, STLMLC STLMLC [id number] Common 08:51:01 [facility] 2021-08-20 Outpatient Mai, STLMLC STLMLC [id number] Common 13:35:21 [place] [address] [facility] 2021-08-20 Outpatient Mai, STLMLC STLMLC [id number] Common 13:06:25 [place] [address] [facility] 2021-08-20 Outpatient Mai, STLMLC STLMLC [id number] Common 12:37:56 [place] [address] [facility] 2021-08-20 Outpatient Mai, STLMLC STLMLC [id number] Common 11:51:15 [place] [address] [facility] 2021-08-20 Outpatient Mai, STLMLC STLMLC [id number] Common 11:50:29 [place] [address] [facility] 2021-08-20 Outpatient Mai, STLMLC [facility] [id number] Common 11:42:33 [place] [address] [facility] 2021-08-20 Outpatient Mai, STPAULOL[facility] [id number] Common 11:17:37 [place] [address] [facility] 2021-08-20 Outpatient Mai, STLC [facility] [id number] Common 10:59:55 [place] [address] [facility] 2021-08-20 [facility] [id number] Common 10:58:12 [place] [address] [facility] 2021-06-03 Outpatient [facility]an [facility] [place] [facility] [id number] Univers 16:39:10 JASMYN kaur [facility] 2022-06-04 2022-06-04 Outpatient SENA MARY [id number] Merna 14:00:00 14:00:00 PETERSON CHAN Se 2022-06-02 2022-06-02 Outpatient MERNA GOLDEN [id number] Merna 11:20:00 11:20:00 KATHLEEN Seybol d 2022-05-26 2022-05-26 Outpatient MERNA VO [id number] Merna 00:00:00 00:00:00 MERRICK Seybol d 2022-05-19 2022-05-19 Outpatient MERNA VO [id number] Merna 00:00:00 00:00:00 MERRICK Seybol d 2022-05-07 2022-05-07 Outpatient MERNA VO [id number] Merna 00:00:00 00:00:00 MERRICK Seybol d 2022-05-03 2022-05-03 [facility] [id number] Univers 15:56:00 19:44:00 [facility]22-[facility]-03 2022-05-03 Emergency [facility] [id number] Univers 15:56:00 19:44:00 Deyanira GODINEZ [id number] natasha [facility] [id number] [facility] [phone] [facility] lukas 084 [place] 2022-04-30 2022-04-30 Outpatient LAB90 MERNA MARY [id number] Merna 10:45:00 10:45:00 Seybol d 2022-04-30 2022-04-30 Outpatient MERNA VO [id number] Merna 09:15:00 09:15:00 MERRICK Seybol d 2022-04-30 2022-04-30 Outpatient MERNA VO [id number] Merna 00:00:00 00:00:00 MERRICK Seybol d 2022-04-28 2022-04-28 (TEL) STLMLC STLMLC [id number] Co mmon 00:00:00 00:00:00 [facility] 2022-04-21 2022-04-21 OL DIG E/M STLMLC STLMLC [id number] Common 00:00:00 00:00:00 SVC 21+ [facility] 2022-04-16 2022-04-16 (TEL) STLMLC STLMLC [id number] Co mmon 00:00:00 00:00:00 [facility] 2022-03-26 2022-04-03 Inpatient nullFlavo [facility] [id number] Memoria 19:48:00 21:37:00 r Kei 00 l [facility] 2022-03-26 2022-04-03 Inpatient nullFlavo [facility] [id number] Memoria 19:48:00 21:37:00 r Kei 00 l [facility] 2022-03-26 2022-04-03 Inpatient E ADEEPIFANIOTI, MHBL MED [id number] MHBL 19:35:00 16:37:00 DIANA 2022-03-26 2022-04-03 Outpatient [place], MHPL MHPL [id number] 14:48:00 16:37:00 Diana 00 Jayme 2022-03-31 2022-03-31 Outpatient MERNA CURRY [id number] Merna 00:00:00 00:00:00 TODD Seybol d 2022-03-26 2022-03-[address] [address] [address] [id number] 14:48:00 14:48:00 Diana 00 Jayme 2022-03-24 2022-03-24 (TEL) STLMLC STLMLC [id number] Co mmon 00:00:00 00:00:00 [facility] 2022-03-04 2022-03-04 (TEL) STLMLC STLMLC [id number] Co mmon 00:00:00 00:00:00 [facility] 2022-02-19 2022-02-19 (TEL) STLMLC STLMLC [id number] Co mmon 00:00:00 00:00:00 [facility] 2022-02-06 2022-02-06 [id number] Devoted 03:28:00 03:28:00 [facility] 2021-12-03 2021-12-03 (TEL) STLMLC STLMLC [id number] Co mmon 00:00:00 00:00:00 [facility] 2021-12-02 2021-12-02 OFFICE STLMLC STLMLC [id number] Co mmon 00:00:00 00:00:00 VISIT [facility] ESTAB PT - CHI LEVEL 4 [facility] 2021-11-26 2021-11-26 (TEL) STLMLC STLMLC [id number] Co mmon 00:00:00 00:00:00 [facility] 2021-11-24 2021-11-24 OFFICE STLMLC STLMLC [id number] Co mmon 00:00:00 00:00:00 VISIT NEW [facility] it PT LEVEL 4 [facility] 2021-10-27 2021-10-27 Outpatient Rohan MON MECRISTIANO MECRISTIANO [id number] Univers 14:30:00 14:30:00 JASMYN kaur [facility] 2021-10-24 2021-10-24 (TEL) STLMLC STLMLC [id number] Co mmon 00:00:00 00:00:00 [facility] 2021-10-15 2021-10-15 Telephone Yaa [facility] [id number] Univers 00:00:00 00:00:00 [facility] [id number] [place] 4.2.7.2.686 Patrick as SHEREEN?BLEA [phone] Ny giancarlo [facility] [address] [facility] OFFICE [facility] 2021-07-09 2021-07-09 Orders Doctor JOSE 1.2.840.114 [id number] Univers 00:00:00 00:00:00 Only Unassigned, MARYLOU [id number] ity of [place] [facility] 4.2.7.2.686 Patrick as [phone] [address] 2021-07-03 2021-07-03 Telephone [facility] [id number] Univers 00:00:00 00:00:00 Kilocrista HERBERT [id number] ity of [facility] [place] [phone] Ny giancarlo RUGGIERO [address] [place] [address] 2021-06-16 2021-06-16 Telephone [facility] [id number] Univers 00:00:00 00:00:00 Robin GODINEZ [id number] [place] [phone] Ny giancarlo RUGGIERO [address] [place] [address] 2021-06-11 2021-06-11 Office [facility] [id number] Univers 08:57:29 09:25:09 Visit Robin GODINEZ [id number] [facility] 4.2.[place] [phone] Ny giancarlo RUGGIERO [address] [place] [address] 2021-06-11 2021-06-11 Outpatient R DUDLEY [facility] [id number] Univers 08:40:00 09:25:09 ROBIN kaur o f [facility] 2021-06-11 2021-06-11 Office [facility] [id number] Univers 08:40:00 09:25:09 Visit Robin GODINEZ [id number] ity of [facility] [place] [phone] Ny giancarlo RUGGIERO 059 [facility] 2021-06-11 2021-06-11 Outpatient R DUDLEY [facility] [id number] Univers 08:40:00 09:25:09 ROBIN panchoy o f [facility] 2021-06-11 2021-06-11 Outpatient R DUDLEY [facility] [id number] Univers 08:40:00 09:25:09 ROBIN deleonluan o f [facility] 2021-06-11 2021-06-11 Orders Doctor JOSE 1.2.840.114 [id number] Univers 00:00:00 00:00:00 Only Unassigned, MARYLOU 350.1.13.10 [place] of [place] [facility] 4.2.7.2.686 Patrick as [phone] [address] 2021-06-06 2021-06-06 Telephone [facility] 1.2.840.114 [id number] Univers 00:00:00 00:00:00 [facility] [id number] it y of [place] 4.2.7.2.686 Patrick as SHEREEN?BLEA [phone] Ny giancarlo CAO [address] [facility] OFFICE [facility] 2021-06-03 2021-06-03 [facility] 1.2.840.114 [id number] Univers 00:00:00 00:00:00 Surgery [facility] [id number] it y of [place] 4.2.7.2.686 Patrick as SHEREEN?BLEA [phone] Ny giancarlo CAO [address] [facility] OFFICE [facility] 2021-06-02 2021-06-02 Office [facility] [id number] Univers 15:57:10 16:35:14 Visit Jasmyn [facility] 350.1.13.10 it y of [place] 4.2.7.2.686 Patrick as SHEREEN?BLEA [phone] Ny giancarlo CAO [address] [facility] OFFICE [facility] 2021-06-02 2021-06-02 Outpatient R YAA [facility] [id number] Univers 15:45:00 16:35:14 [facility] 2021-06-02 2021-06-02 Outpatient Rohan MON [facility] [id number] Univers 15:45:00 16:35:14 [facility] 2021-06-02 2021-06-02 Outpatient Rohan MON [facility] [id number] Univers 15:45:00 16:35:14 [facility] 2021-06-01 2021-06-01 Emergency X KASSI [facility] ERT [id number] Univers 11:24:00 13:54:00 [facility] 2021-06-01 2021-06-01 Emergency X KASSI [facility] ERT [id number] Univers 11:24:00 13:54:00 [facility] 2021-02-27 2021-02-27 Outpatient STLMLC STLMLC [id number] Common 00:00:00 00:00:00 [facility] 2021-02-27 2021-02-27 Outpatient STLMLC STLMLC [id number] Common 00:00:00 00:00:00 [facility] 2021-01-31 2021-01-31 Outpatient DMG DMG [id number] Devoted 08:00:00 08:00:00 [facility] 2020-10-01 2020-10-01 Outpatient STLMLC STLMLC [id number] Common 00:00:00 00:00:00 [facility] 2020-08-26 2020-08-26 Outpatient STLMLC STLMLC [id number] Common 00:00:00 00:00:00 [facility] 2020-07-24 2020-07-24 Outpatient STLMLC STLMLC [id number] Common 00:00:00 00:00:00 [facility] 2020-07-03 2020-07-03 Outpatient STLMLC STLMLC [id number] Common 00:00:00 00:00:00 [facility] 2020-05-30 2020-05-30 Outpatient STLMLC STLMLC [id number] Common 00:00:00 00:00:00 [facility] 2020-04-25 2020-04-25 Outpatient STLMLC STLMLC [id number] Common 00:00:00 00:00:00 [facility] 2020-03-26 2020-03-26 Outpatient [facility] [id number] Common 13:30:00 13:30:[place] [address] [facility] 2019-12-13 2019-12-13 Out[facility] [id number] Common 13:00:00 13:00:00 [place] [address] [facility] 2019-11-28 2019-11-28 Out[facility] [id number] Common 08:08:00 08:08:00 [place] [address] [facility] 2019-08-03 2019-08-03 Outpatient [facility] [id number] Common 14:00:00 14:00:00 [place] [address] [facility] 2019-05-25 2019-05-25 Outpatient [facility] [id number] Common 13:00:00 13:00:00 [place] [address] [facility] 2019-02-22 2019-02-22 Outpatient [facility] [id number] Common 13:00:00 13:00:00 [place] [address] [facility] 2019-02-15 2019-02-15 Outpatient [facility] [id number] Common 08:00:00 08:00:00 [place] [address] [facility] 2019-01-11 2019-01-11 Outpatient [facility] [id number] Common 15:00:00 15:00:00 [place] [address] [facility] 2018-03-21 2018-03-21 Outpatient [facility] [id number] Common 13:00:00 13:00:00 [place] [address] [facility] 2018-02-18 2018-02-18 Outpatient Lion [place] [id number] Common 12:09:00 12:09:00 [place] [address] [facility] 2018-02-14 2018-02-14 Outpatient Lion [place] [id number] Common 11:15:00 11:15:00 [place] [address] [facility] 2018-01-19 2018-01-19 Outpatient Lion Seymourt [id number] Common 13:45:00 13:45:00 [place] [address] [facility] 2015-09-17 2015-09-21 Inpatient nullFlavo [facility] [id number] Memoria 14:35:00 21:15:[address] 2015-09-17 2015-09-21 Inpatient nullFlavo [facility] [id number] Memoria 14:35:00 21:15:[address] 2015-09-17 2015-09-21 Outpatient Abbey [facility] [id number] 08:35:00 15:15:[address] [facility] 53 Results Test Description Test Time Test Comments Results Result Comments Source [facility] 2022-04-30 15:25:03 Test Item Value Reference Range Interpretation Comme nts [facility] left side (test code See_Comment [Automated message] The system which = 41914-0Q) generated this result transmitted reference range : 1.40 - 0.90 NA. The reference range was not used to interpret this result as normal/abnormal . [facility] (test code See_Comment Presentation Factors: Hypertension, = 22512-3J) DiabetesExercis e Modality: At Restpatient is wheelchair bound so she is sitting upri ght for test. heating packs applied t o both feet. Normal - 1.40 - 1.00Bord abdon - 0.99 - 0.90Mild - 0.89 - 0.60Moderate - 0.59 - 0.30Severe - 0.29 - 0.00 [Automated message] The sy stem which generated this result tra nsmitted reference range: 1.40 - 0 .90 NA. The reference range was not u sed to interpret this result as sharri l/abnormal. Merna Seybold - ExternalUrine Culture,[id number] 00:00:00 Test Item Value Reference Range Interpretation Comments Urine Culture,Comprehensive Final report (test code = 630-4) [id number] 16:53:00 Test Item Value Reference Range Interpretation Comments Potassium Lvl (test code = Potassium 5.1 3.5-5.1 Lvl) [facility] [id number] 16:53:00 Test Item Value Reference Range Interpretation Comments Potassium Lvl (test code = Potassium 5.1 3.5-5.1 Lvl) [facility] [id number] 16:53:00 Test Item Value Reference Range Interpretation Comments Potassium Lvl (test code = Potassium 5.1 3.5-5.1 Lvl) [facility] [id number] 08:31:00 Test Item Value Reference Range Interpretation Comments B/C Ratio (test code = B/C Ratio) 29 1 6-25 [facility] [id number] 08:31:00 Test Item Value Reference Range Interpretation Comments Globulin (test code = Globulin) 4.1 2.7-4.2 [facility] HermannCHEM [id number] 08:31:00 Test Item Value Reference Range Interpretation Comments A/G Ratio (test code = A/G Ratio) 0.5 1 0.7-1.6 [facility] [id number] 08:31:00 Test Item Value Reference Range Interpretation Comments eGFR (test code = eGFR) 55 [facility] TexasMkgtckpUVRSCGQMNJ9984-47-22 08:31:00 Test Item Value Reference Range Interpretation Comments Segs (test code = Segs) 86.2 45.0-75.0 [facility] TexasJqwdmoiDZXZABLHWD1118-05-84 08:31:00 Test Item Value Reference Range Interpretation Comments Lymphocytes (test code = Lymphocytes) 9.4 20.0-40.0 [facility] TexasVclszesBJMCOSYSMB4177-04-36 08:31:00 Test Item Value Reference Range Interpretation Comments Monocytes (test code = Monocytes) 4.0 2.0-12.0 [facility] TexasEifndbxZBHPEQQWQR8884-67-35 08:31:00 Test Item Value Reference Range Interpretation Comments Eosinophils (test code = 0.1 See_Comment [A utomated message] The Eosinophils) system which ge nerated this result tra nsmitted reference range : <=4.0. The reference r alonzo was not used to int erpret this result as normal/abnormal . [facility] CenterDhbrshwYHMEBTHUZO6589-49-05 08:31:00 Test Item Value Reference Range Interpretation Comments Basophils (test code = 0.3 See_Comment [Aut omated message] The Basophils) system which ge nerated this result tra nsmitted reference range : <=1.0. The reference r alonzo was not used to int erpret this result as normal/abnormal . [facility] CenterFzuzsqpERXREDOPHG4507-85-59 08:31:00 Test Item Value Reference Range Interpretation Comments Neutrophils # (test code = Neutrophils 6.4 1.5-8.1 #) [facility] CenterFsxlkgsKIWZFUZICG6748-95-96 08:31:00 Test Item Value Reference Range Interpretation Comments Lymphocytes # (test code = Lymphocytes 0.7 1.0-5.5 #) [facility] CenterBddkstsEPLYECPMAD7483-29-91 08:31:00 Test Item Value Reference Range Interpretation Comments Monocytes # (test code 0.3 See_Comment [Aut omated message] The = Monocytes #) system which generated this result tra nsmitted reference range : <=0.8. The reference r alonzo was not used to int erpret this result as normal/abnormal . [facility] CenterPqvmjbnHTMKATAHBV5509-08-02 08:31:00 Test Item Value Reference Range Interpretation Comments WBC (test code = WBC) 7.4 3.7-10.4 [place] 222412-09-09 08:31:00 Test Item Value Reference Range Interpretation Comments RBC (test code = RBC) 3.18 4.20-5.40 [place] 222412-09-09 08:31:00 Test Item Value Reference Range Interpretation Comments Hgb (test code = Hgb) 8.7 12.0-16.0 [place] 13902-09-09 08:31:00 Test Item Value Reference Range Interpretation Comments Hct (test code = Hct) 26.7 36.0-48.0 [place] 13902-09-09 08:31:00 Test Item Value Reference Range Interpretation Comments MCV (test code = MCV) 84.1 80.0-98.0 [place] 222412-09-09 08:31:00 Test Item Value Reference Range Interpretation Comments MCH (test code = MCH) 27.5 pg 27.0-31.0 [place] 222412-09-09 08:31:00 Test Item Value Reference Range Interpretation Comments MCHC (test code = MCHC) 32.7 32.0-36.0 [place] 222412-09-09 08:31:00 Test Item Value Reference Range Interpretation Comments RDW (test code = RDW) 17.4 11.5-14.5 [place] 222412-09-09 08:31:00 Test Item Value Reference Range Interpretation Comments Platelet (test code = Platelet) 280 133-450 [place] 222412-09-09 08:31:00 Test Item Value Reference Range Interpretation Comments MPV (test code = MPV) 8.1 7.4-10.4 [place] 298252-09-09 08:31:00 Test Item Value Reference Range Interpretation Comments Glucose Lvl (test code = Glucose Lvl) 119 70-99 [place] 298252-09-09 08:31:00 Test Item Value Reference Range Interpretation Comments BUN (test code = BUN) 30 7-22 [place] 298252-09-09 08:31:00 Test Item Value Reference Range Interpretation Comments Creatinine Lvl (test code = Creatinine 1.05 0.50-1.40 Lvl) [place] 298252-09-09 08:31:00 Test Item Value Reference Range Interpretation Comments Sodium Lvl (test code = Sodium Lvl) 138 135-145 [place] 298252-09-09 08:31:00 Test Item Value Reference Range Interpretation Comments Potassium Lvl (test code = Potassium 5.3 3.5-5.1 Lvl) [place] 298252-09-09 08:31:00 Test Item Value Reference Range Interpretation Comments Chloride Lvl (test code = Chloride Lvl) 112 95-109 [place] 298252-09-09 08:31:00 Test Item Value Reference Range Interpretation Comments CO2 (test code = CO2) 22 24-32 [place] 298252-09-09 08:31:00 Test Item Value Reference Range Interpretation Comments Calcium Lvl (test code = Calcium Lvl) 8.3 8.5-10.5 [place] 298252-09-09 08:31:00 Test Item Value Reference Range Interpretation Comments Total Protein (test code = Total 6.2 6.4-8.4 Protein) [place] 298252-09-09 08:31:00 Test Item Value Reference Range Interpretation Comments Albumin Lvl (test code = Albumin Lvl) 2.1 3.5-5.0 [place] 298252-09-09 08:31:00 Test Item Value Reference Range Interpretation Comments ALT (test code = ALT) 11 See_Comment [Auto mated message] The system which ge nerated this result transmit linnea reference range : <=65. The reference range was not used to interpr et this result as sharri l/abnormal. [place] 298252-09-09 08:31:00 Test Item Value Reference Range Interpretation Comments AST (test code = AST) 9 See_Comment [Auto mated message] The system which ge nerated this result transmit linnea reference range : <=37. The reference range was not used to interpr et this result as sharri l/abnormal. [place] 298252-09-09 08:31:00 Test Item Value Reference Range Interpretation Comments Alk Phos (test code = Alk Phos) 48 39-136 [place] 298252-09-09 08:31:00 Test Item Value Reference Range Interpretation Comments Bili Total (test code = Bili Total) 0.2 0.2-1.3 [place] 298252-09-09 08:31:00 Test Item Value Reference Range Interpretation Comments AGAP (test code = AGAP) 9.3 10.0-20.0 [place] 298252-09-09 08:31:00 Test Item Value Reference Range Interpretation Comments Globulin (test code = Globulin) 4.1 2.7-4.2 [place] 298252-09-09 08:31:00 Test Item Value Reference Range Interpretation Comments A/G Ratio (test code = A/G Ratio) 0.5 1 0.7-1.6 [place] 298252-09-09 08:31:00 Test Item Value Reference Range Interpretation Comments eGFR (test code = eGFR) 55 [facility] CenterQqkrdtdERJIQQUGYV2553-68-58 08:31:00 Test Item Value Reference Range Interpretation Comments Segs (test code = Segs) 86.2 45.0-75.0 [place] 139[address]-09-09 08:31:00 Test Item Value Reference Range Interpretation Comments Lymphocytes (test code = Lymphocytes) 9.4 20.0-40.0 [place] 139[address]-09-09 08:31:00 Test Item Value Reference Range Interpretation Comments Monocytes (test code = Monocytes) 4.0 2.0-12.0 [place] 139[address]-09-09 08:31:00 Test Item Value Reference Range Interpretation Comments Eosinophils (test code = 0.1 See_Comment [A utomated message] The Eosinophils) system which ge nerated this result tra nsmitted reference range : <=4.0. The reference r alonzo was not used to int erpret this result as normal/abnormal . [place] 139[address]-09-09 08:31:00 Test Item Value Reference Range Interpretation Comments Basophils (test code = 0.3 See_Comment [Aut omated message] The Basophils) system which ge nerated this result tra nsmitted reference range : <=1.0. The reference r alonzo was not used to int erpret this result as normal/abnormal . [place] 222412-09-09 08:31:00 Test Item Value Reference Range Interpretation Comments Neutrophils # (test code = Neutrophils 6.4 1.5-8.1 #) [place] [address]-09-09 08:31:00 Test Item Value Reference Range Interpretation Comments Lymphocytes # (test code = Lymphocytes 0.7 1.0-5.5 #) [place] 139[address]-09-09 08:31:00 Test Item Value Reference Range Interpretation Comments Monocytes # (test code 0.3 See_Comment [Aut omated message] The = Monocytes #) system which generated this result tra nsmitted reference range : <=0.8. The reference r alonzo was not used to int erpret this result as normal/abnormal . [place] 139[address]-09-09 08:31:00 Test Item Value Reference Range Interpretation Comments WBC (test code = WBC) 7.4 3.7-10.4 [place] 139[address]-09-09 08:31:00 Test Item Value Reference Range Interpretation Comments RBC (test code = RBC) 3.18 4.20-5.40 [place] 222412-09-09 08:31:00 Test Item Value Reference Range Interpretation Comments Hgb (test code = Hgb) 8.7 12.0-16.0 [place] 222412-09-09 08:31:00 Test Item Value Reference Range Interpretation Comments Hct (test code = Hct) 26.7 36.0-48.0 [place] 222412-09-09 08:31:00 Test Item Value Reference Range Interpretation Comments MCV (test code = MCV) 84.1 80.0-98.0 [place] 222412-09-09 08:31:00 Test Item Value Reference Range Interpretation Comments MCH (test code = MCH) 27.5 pg 27.0-31.0 [place] 222412-09-09 08:31:00 Test Item Value Reference Range Interpretation Comments MCHC (test code = MCHC) 32.7 32.0-36.0 [place] 222412-09-09 08:31:00 Test Item Value Reference Range Interpretation Comments RDW (test code = RDW) 17.4 11.5-14.5 [place] 222412-09-09 08:31:00 Test Item Value Reference Range Interpretation Comments Platelet (test code = Platelet) 280 133-450 [facility] CenterNgiochpGZJTAACFRC5051-93-82 08:31:00 Test Item Value Reference Range Interpretation Comments MPV (test code = MPV) 8.1 7.4-10.4 [place] 298252-09-09 08:31:00 Test Item Value Reference Range Interpretation Comments Glucose Lvl (test code = Glucose Lvl) 119 70-99 [place] 298252-09-09 08:31:00 Test Item Value Reference Range Interpretation Comments BUN (test code = BUN) 30 7-22 [place] 298252-09-09 08:31:00 Test Item Value Reference Range Interpretation Comments Creatinine Lvl (test code = Creatinine 1.05 0.50-1.40 Lvl) [place] 298252-09-09 08:31:00 Test Item Value Reference Range Interpretation Comments Sodium Lvl (test code = Sodium Lvl) 138 135-145 [place] 298252-09-09 08:31:00 Test Item Value Reference Range Interpretation Comments Potassium Lvl (test code = Potassium 5.3 3.5-5.1 Lvl) [place] 298252-09-09 08:31:00 Test Item Value Reference Range Interpretation Comments Chloride Lvl (test code = Chloride Lvl) 112 95-109 [place] 424[address]-09-09 08:31:00 Test Item Value Reference Range Interpretation Comments CO2 (test code = CO2) 22 24-32 [place] 298252-09-09 08:31:00 Test Item Value Reference Range Interpretation Comments Calcium Lvl (test code = Calcium Lvl) 8.3 8.5-10.5 [place] 298252-09-09 08:31:00 Test Item Value Reference Range Interpretation Comments Total Protein (test code = Total 6.2 6.4-8.4 Protein) [place] [address]-09-09 08:31:00 Test Item Value Reference Range Interpretation Comments Albumin Lvl (test code = Albumin Lvl) 2.1 3.5-5.0 [place] 298252-09-09 08:31:00 Test Item Value Reference Range Interpretation Comments ALT (test code = ALT) 11 See_Comment [Auto mated message] The system which ge nerated this result transmit linnea reference range : <=65. The reference range was not used to interpr et this result as sharri l/abnormal. [place] 298252-09-09 08:31:00 Test Item Value Reference Range Interpretation Comments AST (test code = AST) 9 See_Comment [Auto mated message] The system which ge nerated this result transmit linnea reference range : <=37. The reference range was not used to interpr et this result as sharri l/abnormal. [place] 298252-09-09 08:31:00 Test Item Value Reference Range Interpretation Comments Alk Phos (test code = Alk Phos) 48 39-136 [place] [address]-09-09 08:31:00 Test Item Value Reference Range Interpretation Comments Bili Total (test code = Bili Total) 0.2 0.2-1.3 [place] [address]-09-09 08:31:00 Test Item Value Reference Range Interpretation Comments AGAP (test code = AGAP) 9.3 10.0-20.0 [address]09-09 08:31:00 Test Item Value Reference Range Interpretation Comments B/C Ratio (test code = B/C Ratio) 29 1 6-25 [place] [address]-09-09 08:31:00 Test Item Value Reference Range Interpretation Comments Globulin (test code = Globulin) 4.1 2.7-4.2 [place] [address]-09-09 08:31:00 Test Item Value Reference Range Interpretation Comments A/G Ratio (test code = A/G Ratio) 0.5 1 0.7-1.6 [address]09-09 08:31:00 Test Item Value Reference Range Interpretation Comments eGFR (test code = eGFR) 55 [place] [address]-09-09 08:31:00 Test Item Value Reference Range Interpretation Comments Segs (test code = Segs) 86.2 45.0-75.0 [place] [address]-09-09 08:31:00 Test Item Value Reference Range Interpretation Comments Lymphocytes (test code = Lymphocytes) 9.4 20.0-40.0 [place] [address]-09-09 08:31:00 Test Item Value Reference Range Interpretation Comments Monocytes (test code = Monocytes) 4.0 2.0-12.0 [place] [address]-09-09 08:31:00 Test Item Value Reference Range Interpretation Comments Eosinophils (test code = 0.1 See_Comment [A utomated message] The Eosinophils) system which ge nerated this result tra nsmitted reference range : <=4.0. The reference r alonzo was not used to int erpret this result as normal/abnormal . [place] [address]-09-09 08:31:00 Test Item Value Reference Range Interpretation Comments Basophils (test code = 0.3 See_Comment [Aut omated message] The Basophils) system which ge nerated this result tra nsmitted reference range : <=1.0. The reference r alonzo was not used to int erpret this result as normal/abnormal . [place] [address]-09-09 08:31:00 Test Item Value Reference Range Interpretation Comments Neutrophils # (test code = Neutrophils 6.4 1.5-8.1 #) [place] [address]-09-09 08:31:00 Test Item Value Reference Range Interpretation Comments Lymphocytes # (test code = Lymphocytes 0.7 1.0-5.5 #) [facility] [id number] 08:31:00 Test Item Value Reference Range Interpretation Comments Monocytes # (test code 0.3 See_Comment [Aut omated message] The = Monocytes #) system which generated this result tra nsmitted reference range : <=0.8. The reference r alonzo was not used to int erpret this result as normal/abnormal . [facility] CenterKotvzxqIAMCRWDUNV2575-99-32 08:31:00 Test Item Value Reference Range Interpretation Comments WBC (test code = WBC) 7.4 3.7-10.4 [place] 222412-09-09 08:31:00 Test Item Value Reference Range Interpretation Comments RBC (test code = RBC) 3.18 4.20-5.40 [place] 222412-09-09 08:31:00 Test Item Value Reference Range Interpretation Comments Hgb (test code = Hgb) 8.7 12.0-16.0 [facility] CenterRfeebjiXCVQINVCWS8443-68-00 08:31:00 Test Item Value Reference Range Interpretation Comments Hct (test code = Hct) 26.7 36.0-48.0 [place] 222412-09-09 08:31:00 Test Item Value Reference Range Interpretation Comments MCV (test code = MCV) 84.1 80.0-98.0 [place] 222412-09-09 08:31:00 Test Item Value Reference Range Interpretation Comments MCH (test code = MCH) 27.5 pg 27.0-31.0 [place] 222412-09-09 08:31:00 Test Item Value Reference Range Interpretation Comments MCHC (test code = MCHC) 32.7 32.0-36.0 [facility] CenterSajhzewYYJKWUMSLW2289-61-63 08:31:00 Test Item Value Reference Range Interpretation Comments RDW (test code = RDW) 17.4 11.5-14.5 [facility] CenterUxopnvzZWLSPMWVXT9794-86-29 08:31:00 Test Item Value Reference Range Interpretation Comments Platelet (test code = Platelet) 280 133-450 [facility] CenterSvduiccQNLNTDJYYU8623-67-48 08:31:00 Test Item Value Reference Range Interpretation Comments MPV (test code = MPV) 8.1 7.4-10.4 [place] 298252-09-09 08:31:00 Test Item Value Reference Range Interpretation Comments Glucose Lvl (test code = Glucose Lvl) 119 70-99 [place] 298252-09-09 08:31:00 Test Item Value Reference Range Interpretation Comments BUN (test code = BUN) 30 7-22 [place] 298252-09-09 08:31:00 Test Item Value Reference Range Interpretation Comments Creatinine Lvl (test code = Creatinine 1.05 0.50-1.40 Lvl) [place] 298252-09-09 08:31:00 Test Item Value Reference Range Interpretation Comments Sodium Lvl (test code = Sodium Lvl) 138 135-145 [place] 298252-09-09 08:31:00 Test Item Value Reference Range Interpretation Comments Potassium Lvl (test code = Potassium 5.3 3.5-5.1 Lvl) [place] 298252-09-09 08:31:00 Test Item Value Reference Range Interpretation Comments Chloride Lvl (test code = Chloride Lvl) 112 95-109 [place] 298252-09-09 08:31:00 Test Item Value Reference Range Interpretation Comments CO2 (test code = CO2) 22 24-32 [place] 298252-09-09 08:31:00 Test Item Value Reference Range Interpretation Comments Calcium Lvl (test code = Calcium Lvl) 8.3 8.5-10.5 [place] 298252-09-09 08:31:00 Test Item Value Reference Range Interpretation Comments Total Protein (test code = Total 6.2 6.4-8.4 Protein) [place] 298252-09-09 08:31:00 Test Item Value Reference Range Interpretation Comments Albumin Lvl (test code = Albumin Lvl) 2.1 3.5-5.0 [place] 298252-09-09 08:31:00 Test Item Value Reference Range Interpretation Comments ALT (test code = ALT) 11 See_Comment [Auto mated message] The system which ge nerated this result transmit linnea reference range : <=65. The reference range was not used to interpr et this result as sharri l/abnormal. [place] 298252-09-09 08:31:00 Test Item Value Reference Range Interpretation Comments AST (test code = AST) 9 See_Comment [Auto mated message] The system which ge nerated this result transmit linnea reference range : <=37. The reference range was not used to interpr et this result as sharri l/abnormal. [place] 298252-09-09 08:31:00 Test Item Value Reference Range Interpretation Comments Alk Phos (test code = Alk Phos) 48 39-136 [place] 298252-09-09 08:31:00 Test Item Value Reference Range Interpretation Comments Bili Total (test code = Bili Total) 0.2 0.2-1.3 [place] 298252-09-09 08:31:00 Test Item Value Reference Range Interpretation Comments AGAP (test code = AGAP) 9.3 10.0-20.0 [place] 298252-09-09 08:31:00 Test Item Value Reference Range Interpretation Comments B/C Ratio (test code = B/C Ratio) 29 1 6-25 [place] 298252-09-08 08:27:00 Test Item Value Reference Range Interpretation Comments Glucose Lvl (test code = Glucose Lvl) 101 70-99 [place] 298252-09-08 08:27:00 Test Item Value Reference Range Interpretation Comments BUN (test code = BUN) 29 7-[address] [facility]2022-09-08 08:27:00 Test Item Value Reference Range Interpretation Comments Creatinine Lvl (test code = Creatinine 0.99 0.50-1.40 Lvl) [place] 298252-09-08 08:27:00 Test Item Value Reference Range Interpretation Comments Sodium Lvl (test code = Sodium Lvl) 138 135-145 [place] 298252-09-08 08:27:00 Test Item Value Reference Range Interpretation Comments Potassium Lvl (test code = Potassium 4.6 3.5-5.1 Lvl) [place] 298252-09-08 08:27:00 Test Item Value Reference Range Interpretation Comments Chloride Lvl (test code = Chloride Lvl) 114 95-109 [place] 298252-09-08 08:27:00 Test Item Value Reference Range Interpretation Comments CO2 (test code = CO2) 21 24-32 [facility] [id number] 08:27:00 Test Item Value Reference Range Interpretation Comments Calcium Lvl (test code = Calcium Lvl) 8.2 8.5-10.5 [facility] [id number] 08:27:00 Test Item Value Reference Range Interpretation Comments Total Protein (test code = Total 5.9 6.4-8.4 Protein) [facility] [id number] 08:27:00 Test Item Value Reference Range Interpretation Comments Albumin Lvl (test code = Albumin Lvl) 2.1 3.5-5.0 [facility] [id number] 08:27:00 Test Item Value Reference Range Interpretation Comments ALT (test code = ALT) 10 See_Comment [Auto mated message] The system which ge nerated this result transmit linnea reference range : <=65. The reference range was not used to interpr et this result as sharri l/abnormal. [facility] [id number] 08:27:00 Test Item Value Reference Range Interpretation Comments AST (test code = AST) 13 See_Comment [Auto mated message] The system which ge nerated this result transmit linnea reference range : <=37. The reference range was not used to interpr et this result as sharri l/abnormal. [facility] [id number] 08:27:00 Test Item Value Reference Range Interpretation Comments Alk Phos (test code = Alk Phos) 45 39-136 [facility] [id number] 08:27:00 Test Item Value Reference Range Interpretation Comments Bili Total (test code = Bili Total) 0.3 0.2-1.3 [facility] [employer] [id number] 08:27:00 Test Item Value Reference Range Interpretation Comments AGAP (test code = AGAP) 7.6 10.0-20.0 [facility] [employer] [id number] 08:27:00 Test Item Value Reference Range Interpretation Comments B/C Ratio (test code = B/C Ratio) 29 1 6-25 [facility] [id number] 08:27:00 Test Item Value Reference Range Interpretation Comments Globulin (test code = Globulin) 3.8 2.7-4.2 [facility] [employer] [id number] 08:27:00 Test Item Value Reference Range Interpretation Comments A/G Ratio (test code = A/G Ratio) 0.6 1 0.7-1.[address] [facility]2022-09-08 08:27:00 Test Item Value Reference Range Interpretation Comments eGFR (test code = eGFR) 60 [place] 222412-09-08 08:27:00 Test Item Value Reference Range Interpretation Comments WBC (test code = WBC) 7.2 3.7-10.4 [place] [address]-09-08 08:27:00 Test Item Value Reference Range Interpretation Comments RBC (test code = RBC) 3.10 4.20-5.40 [place] [address]-09-08 08:27:00 Test Item Value Reference Range Interpretation Comments Hgb (test code = Hgb) 8.3 12.0-16.0 [place] [address]-09-08 08:27:00 Test Item Value Reference Range Interpretation Comments Hct (test code = Hct) 25.7 36.0-48.0 [place] 222412-09-08 08:27:00 Test Item Value Reference Range Interpretation Comments MCV (test code = MCV) 83.1 80.0-98.0 [place] [address]-09-08 08:27:00 Test Item Value Reference Range Interpretation Comments MCH (test code = MCH) 26.7 pg 27.0-31.0 [place] 222412-09-08 08:27:00 Test Item Value Reference Range Interpretation Comments MCHC (test code = MCHC) 32.2 32.0-36.0 [place] 222412-09-08 08:27:00 Test Item Value Reference Range Interpretation Comments RDW (test code = RDW) 17.3 11.5-14.5 [place] [address]-09-08 08:27:00 Test Item Value Reference Range Interpretation Comments Platelet (test code = Platelet) 280 133-450 [facility] [id number] 08:27:00 Test Item Value Reference Range Interpretation Comments MPV (test code = MPV) 7.9 7.4-10.4 [place] [address]-09-08 08:27:00 Test Item Value Reference Range Interpretation Comments Segs (test code = Segs) 71.8 45.0-75.0 [facility] [id number] 08:27:00 Test Item Value Reference Range Interpretation Comments Lymphocytes (test code = Lymphocytes) 18.3 20.0-40.0 [place] 222412-09-08 08:27:00 Test Item Value Reference Range Interpretation Comments Monocytes (test code = Monocytes) 6.0 2.0-12.0 [facility] [id number] 08:27:00 Test Item Value Reference Range Interpretation Comments Eosinophils (test code = 3.5 See_Comment [A utomated message] The Eosinophils) system which ge nerated this result tra nsmitted reference range : <=4.0. The reference r alonzo was not used to int erpret this result as normal/abnormal . [place] [address]-09-08 08:27:00 Test Item Value Reference Range Interpretation Comments Basophils (test code = 0.4 See_Comment [Aut omated message] The Basophils) system which ge nerated this result tra nsmitted reference range : <=1.0. The reference r alonzo was not used to int erpret this result as normal/abnormal . [facility] CenterNbhzlveUWNOMAPVQY4246-21-28 08:27:00 Test Item Value Reference Range Interpretation Comments Neutrophils # (test code = Neutrophils 5.2 1.5-8.1 #) [place] 222412-09-08 08:27:00 Test Item Value Reference Range Interpretation Comments Lymphocytes # (test code = Lymphocytes 1.3 1.0-5.5 #) [place] [address]-09-08 08:27:00 Test Item Value Reference Range Interpretation Comments Monocytes # (test code 0.4 See_Comment [Aut omated message] The = Monocytes #) system which generated this result tra nsmitted reference range : <=0.8. The reference r alonzo was not used to int erpret this result as normal/abnormal . [place] [address]-09-08 08:27:00 Test Item Value Reference Range Interpretation Comments Eosinophils # (test code 0.2 See_Comment [A utomated message] The = Eosinophils #) system whic h generated this result tra nsmitted reference range : <=0.5. The reference r alonzo was not used to int erpret this result as normal/abnormal . [place] 298252-09-08 08:27:00 Test Item Value Reference Range Interpretation Comments Glucose Lvl (test code = Glucose Lvl) 101 70-99 [place] 298252-09-08 08:27:00 Test Item Value Reference Range Interpretation Comments BUN (test code = BUN) 29 7-22 [place] 298252-09-08 08:27:00 Test Item Value Reference Range Interpretation Comments Creatinine Lvl (test code = Creatinine 0.99 0.50-1.40 Lvl) [place] 298252-09-08 08:27:00 Test Item Value Reference Range Interpretation Comments Sodium Lvl (test code = Sodium Lvl) 138 135-145 [place] 298252-09-08 08:27:00 Test Item Value Reference Range Interpretation Comments Potassium Lvl (test code = Potassium 4.6 3.5-5.1 Lvl) [place] 298252-09-08 08:27:00 Test Item Value Reference Range Interpretation Comments Chloride Lvl (test code = Chloride Lvl) 114 95-109 [place] 298252-09-08 08:27:00 Test Item Value Reference Range Interpretation Comments CO2 (test code = CO2) 21 24-32 [place] 298252-09-08 08:27:00 Test Item Value Reference Range Interpretation Comments Calcium Lvl (test code = Calcium Lvl) 8.2 8.5-10.5 [place] 298252-09-08 08:27:00 Test Item Value Reference Range Interpretation Comments Total Protein (test code = Total 5.9 6.4-8.4 Protein) [place] 298252-09-08 08:27:00 Test Item Value Reference Range Interpretation Comments Albumin Lvl (test code = Albumin Lvl) 2.1 3.5-5.0 [place] 298252-09-08 08:27:00 Test Item Value Reference Range Interpretation Comments ALT (test code = ALT) 10 See_Comment [Auto mated message] The system which ge nerated this result transmit linnea reference range : <=65. The reference range was not used to interpr et this result as sharri l/abnormal. [place] 298252-09-08 08:27:00 Test Item Value Reference Range Interpretation Comments AST (test code = AST) 13 See_Comment [Auto mated message] The system which ge nerated this result transmit linnea reference range : <=37. The reference range was not used to interpr et this result as sharri l/abnormal. [place] 298252-09-08 08:27:00 Test Item Value Reference Range Interpretation Comments Alk Phos (test code = Alk Phos) 45 39-136 [place] 298252-09-08 08:27:00 Test Item Value Reference Range Interpretation Comments Bili Total (test code = Bili Total) 0.3 0.2-1.3 [place] 298252-09-08 08:27:00 Test Item Value Reference Range Interpretation Comments AGAP (test code = AGAP) 7.6 10.0-20.0 [place] 298252-09-08 08:27:00 Test Item Value Reference Range Interpretation Comments B/C Ratio (test code = B/C Ratio) 29 1 6-25 [place] [address]-09-08 08:27:00 Test Item Value Reference Range Interpretation Comments Globulin (test code = Globulin) 3.8 2.7-4.2 [place] 298252-09-08 08:27:00 Test Item Value Reference Range Interpretation Comments A/G Ratio (test code = A/G Ratio) 0.6 1 0.7-1.6 [place] 298252-09-08 08:27:00 Test Item Value Reference Range Interpretation Comments eGFR (test code = eGFR) 60 [place] 222412-09-08 08:27:00 Test Item Value Reference Range Interpretation Comments WBC (test code = WBC) 7.2 3.7-10.4 [place] [address]-09-08 08:27:00 Test Item Value Reference Range Interpretation Comments RBC (test code = RBC) 3.10 4.20-5.40 [place] 222412-09-08 08:27:00 Test Item Value Reference Range Interpretation Comments Hgb (test code = Hgb) 8.3 12.0-16.0 [place] [address]-09-08 08:27:00 Test Item Value Reference Range Interpretation Comments Hct (test code = Hct) 25.7 36.0-48.0 [address]09-08 08:27:00 Test Item Value Reference Range Interpretation Comments MCV (test code = MCV) 83.1 80.0-98.0 [place] 222412-09-08 08:27:00 Test Item Value Reference Range Interpretation Comments MCH (test code = MCH) 26.7 pg 27.0-31.0 [place] 222412-09-08 08:27:00 Test Item Value Reference Range Interpretation Comments MCHC (test code = MCHC) 32.2 32.0-36.0 [place] 222412-09-08 08:27:00 Test Item Value Reference Range Interpretation Comments RDW (test code = RDW) 17.3 11.5-14.5 [place] 222412-09-08 08:27:00 Test Item Value Reference Range Interpretation Comments Platelet (test code = Platelet) 280 133-450 [place] 222412-09-08 08:27:00 Test Item Value Reference Range Interpretation Comments MPV (test code = MPV) 7.9 7.4-10.4 [place] 222412-09-08 08:27:00 Test Item Value Reference Range Interpretation Comments Segs (test code = Segs) 71.8 45.0-75.0 [place] 222412-09-08 08:27:00 Test Item Value Reference Range Interpretation Comments Lymphocytes (test code = Lymphocytes) 18.3 20.0-40.0 [place] 222412-09-08 08:27:00 Test Item Value Reference Range Interpretation Comments Monocytes (test code = Monocytes) 6.0 2.0-12.0 [place] 222412-09-08 08:27:00 Test Item Value Reference Range Interpretation Comments Eosinophils (test code = 3.5 See_Comment [A utomated message] The Eosinophils) system which ge nerated this result tra nsmitted reference range : <=4.0. The reference r alonzo was not used to int erpret this result as normal/abnormal . [place] [address]-09-08 08:27:00 Test Item Value Reference Range Interpretation Comments Basophils (test code = 0.4 See_Comment [Aut omated message] The Basophils) system which ge nerated this result tra nsmitted reference range : <=1.0. The reference r alonzo was not used to int erpret this result as normal/abnormal . [place] [address]-09-08 08:27:00 Test Item Value Reference Range Interpretation Comments Neutrophils # (test code = Neutrophils 5.2 1.5-8.1 #) [place] [address]-09-08 08:27:00 Test Item Value Reference Range Interpretation Comments Lymphocytes # (test code = Lymphocytes 1.3 1.0-5.5 #) [place] [address]-09-08 08:27:00 Test Item Value Reference Range Interpretation Comments Monocytes # (test code 0.4 See_Comment [Aut omated message] The = Monocytes #) system which generated this result tra nsmitted reference range : <=0.8. The reference r alonzo was not used to int erpret this result as normal/abnormal . [place] [address]-09-08 08:27:00 Test Item Value Reference Range Interpretation Comments Eosinophils # (test code 0.2 See_Comment [A utomated message] The = Eosinophils #) system whic h generated this result tra nsmitted reference range : <=0.5. The reference r alonzo was not used to int erpret this result as normal/abnormal . [place] 298252-09-08 08:27:00 Test Item Value Reference Range Interpretation Comments Glucose Lvl (test code = Glucose Lvl) 101 70-99 [place] [address]-09-08 08:27:00 Test Item Value Reference Range Interpretation Comments BUN (test code = BUN) 29 7-22 [place] [address]-09-08 08:27:00 Test Item Value Reference Range Interpretation Comments Creatinine Lvl (test code = Creatinine 0.99 0.50-1.40 Lvl) [place] [address]-09-08 08:27:00 Test Item Value Reference Range Interpretation Comments Sodium Lvl (test code = Sodium Lvl) 138 135-145 [place] [address]-09-08 08:27:00 Test Item Value Reference Range Interpretation Comments Potassium Lvl (test code = Potassium 4.6 3.5-5.1 Lvl) [place] [address]-09-08 08:27:00 Test Item Value Reference Range Interpretation Comments Chloride Lvl (test code = Chloride Lvl) 114 95-109 [facility] [id number] 08:27:00 Test Item Value Reference Range Interpretation Comments CO2 (test code = CO2) 21 24-32 [facility] [place] [id number] 08:27:00 Test Item Value Reference Range Interpretation Comments Calcium Lvl (test code = Calcium Lvl) 8.2 8.5-10.5 [facility] [id number] 08:27:00 Test Item Value Reference Range Interpretation Comments Total Protein (test code = Total 5.9 6.4-8.4 Protein) [facility] [place] [id number] 08:27:00 Test Item Value Reference Range Interpretation Comments Albumin Lvl (test code = Albumin Lvl) 2.1 3.5-5.0 [facility] [id number] 08:27:00 Test Item Value Reference Range Interpretation Comments ALT (test code = ALT) 10 See_Comment [Auto mated message] The system which ge nerated this result transmit linnea reference range : <=65. The reference range was not used to interpr et this result as sharri l/abnormal. [facility] [id number] 08:27:00 Test Item Value Reference Range Interpretation Comments AST (test code = AST) 13 See_Comment [Auto mated message] The system which ge nerated this result transmit linnea reference range : <=37. The reference range was not used to interpr et this result as sharri l/abnormal. [facility] [id number] 08:27:00 Test Item Value Reference Range Interpretation Comments Alk Phos (test code = Alk Phos) 45 39-136 [facility] [id number] 08:27:00 Test Item Value Reference Range Interpretation Comments Bili Total (test code = Bili Total) 0.3 0.2-1.3 [facility] [id number] 08:27:00 Test Item Value Reference Range Interpretation Comments AGAP (test code = AGAP) 7.6 10.0-20.0 [facility] [id number] 08:27:00 Test Item Value Reference Range Interpretation Comments B/C Ratio (test code = B/C Ratio) 29 1 6-25 [facility] [id number] 08:27:00 Test Item Value Reference Range Interpretation Comments Globulin (test code = Globulin) 3.8 2.7-4.2 [facility] [id number] 08:27:00 Test Item Value Reference Range Interpretation Comments A/G Ratio (test code = A/G Ratio) 0.6 1 0.7-1.6 [facility] [id number] 08:27:00 Test Item Value Reference Range Interpretation Comments eGFR (test code = eGFR) 60 [place] 222412-09-08 08:27:00 Test Item Value Reference Range Interpretation Comments WBC (test code = WBC) 7.2 3.7-10.4 [place] 222412-09-08 08:27:00 Test Item Value Reference Range Interpretation Comments RBC (test code = RBC) 3.10 4.20-5.40 [place] 222412-09-08 08:27:00 Test Item Value Reference Range Interpretation Comments Hgb (test code = Hgb) 8.3 12.0-16.0 [place] 222412-09-08 08:27:00 Test Item Value Reference Range Interpretation Comments Hct (test code = Hct) 25.7 36.0-48.0 [place] 222412-09-08 08:27:00 Test Item Value Reference Range Interpretation Comments MCV (test code = MCV) 83.1 80.0-98.0 [place] 222412-09-08 08:27:00 Test Item Value Reference Range Interpretation Comments MCH (test code = MCH) 26.7 pg 27.0-31.0 [place] 222412-09-08 08:27:00 Test Item Value Reference Range Interpretation Comments MCHC (test code = MCHC) 32.2 32.0-36.0 [place] 222412-09-08 08:27:00 Test Item Value Reference Range Interpretation Comments RDW (test code = RDW) 17.3 11.5-14.5 [place] 222412-09-08 08:27:00 Test Item Value Reference Range Interpretation Comments Platelet (test code = Platelet) 280 133-450 [place] 222412-09-08 08:27:00 Test Item Value Reference Range Interpretation Comments MPV (test code = MPV) 7.9 7.4-10.4 [place] [address]-09-08 08:27:00 Test Item Value Reference Range Interpretation Comments Segs (test code = Segs) 71.8 45.0-75.0 [place] 222412-09-08 08:27:00 Test Item Value Reference Range Interpretation Comments Lymphocytes (test code = Lymphocytes) 18.3 20.0-40.0 [place] [address]-09-08 08:27:00 Test Item Value Reference Range Interpretation Comments Monocytes (test code = Monocytes) 6.0 2.0-12.0 [place] [address]-09-08 08:27:00 Test Item Value Reference Range Interpretation Comments Eosinophils (test code = 3.5 See_Comment [A utomated message] The Eosinophils) system which ge nerated this result tra nsmitted reference range : <=4.0. The reference r alonzo was not used to int erpret this result as normal/abnormal . [place] [address]-09-08 08:27:00 Test Item Value Reference Range Interpretation Comments Basophils (test code = 0.4 See_Comment [Aut omated message] The Basophils) system which ge nerated this result tra nsmitted reference range : <=1.0. The reference r alonzo was not used to int erpret this result as normal/abnormal . [place] 222412-09-08 08:27:00 Test Item Value Reference Range Interpretation Comments Neutrophils # (test code = Neutrophils 5.2 1.5-8.1 #) [place] 222412-09-08 08:27:00 Test Item Value Reference Range Interpretation Comments Lymphocytes # (test code = Lymphocytes 1.3 1.0-5.5 #) [place] [address]-09-08 08:27:00 Test Item Value Reference Range Interpretation Comments Monocytes # (test code 0.4 See_Comment [Aut omated message] The = Monocytes #) system which generated this result tra nsmitted reference range : <=0.8. The reference r alonzo was not used to int erpret this result as normal/abnormal . [place] [address]-09-08 08:27:00 Test Item Value Reference Range Interpretation Comments Eosinophils # (test code 0.2 See_Comment [A utomated message] The = Eosinophils #) system whic h generated this result tra nsmitted reference range : <=0.5. The reference r alonzo was not used to int erpret this result as normal/abnormal . [place] 298252-09-05 08:09:00 Test Item Value Reference Range Interpretation Comments Glucose Lvl (test code = Glucose Lvl) 110 70-99 [place] 298252-09-05 08:09:00 Test Item Value Reference Range Interpretation Comments BUN (test code = BUN) 42 7-22 [place] 298252-09-05 08:09:00 Test Item Value Reference Range Interpretation Comments Creatinine Lvl (test code = Creatinine 1.28 0.50-1.40 Lvl) [place] 298252-09-05 08:09:00 Test Item Value Reference Range Interpretation Comments Sodium Lvl (test code = Sodium Lvl) 142 135-145 [place] 298252-09-05 08:09:00 Test Item Value Reference Range Interpretation Comments Potassium Lvl (test code = Potassium 4.9 3.5-5.1 Lvl) [place] 298252-09-05 08:09:00 Test Item Value Reference Range Interpretation Comments Chloride Lvl (test code = Chloride Lvl) 113 95-109 [place] 298252-09-05 08:09:00 Test Item Value Reference Range Interpretation Comments CO2 (test code = CO2) 23 24-32 [place] 298252-09-05 08:09:00 Test Item Value Reference Range Interpretation Comments Calcium Lvl (test code = Calcium Lvl) 8.3 8.5-10.5 [place] 298252-09-05 08:09:00 Test Item Value Reference Range Interpretation Comments Total Protein (test code = Total 5.9 6.4-8.4 Protein) [place] 298252-09-05 08:09:00 Test Item Value Reference Range Interpretation Comments Albumin Lvl (test code = Albumin Lvl) 2.2 3.5-5.0 [facility] [id number] 08:09:00 Test Item Value Reference Range Interpretation Comments ALT (test code = ALT) 8 See_Comment [Auto mated message] The system which ge nerated this result transmit linnea reference range : <=65. The reference range was not used to interpr et this result as sharri l/abnormal. [place] 298252-09-05 08:09:00 Test Item Value Reference Range Interpretation Comments AST (test code = AST) 14 See_Comment [Auto mated message] The system which ge nerated this result transmit linnea reference range : <=37. The reference range was not used to interpr et this result as sharri l/abnormal. [place] 298252-09-05 08:09:00 Test Item Value Reference Range Interpretation Comments Alk Phos (test code = Alk Phos) 41 39-136 [place] 298252-09-05 08:09:00 Test Item Value Reference Range Interpretation Comments Bili Total (test code = Bili Total) 0.1 0.2-1.3 [place] 298252-09-05 08:09:00 Test Item Value Reference Range Interpretation Comments AGAP (test code = AGAP) 10.9 10.0-20.0 [place] 298252-09-05 08:09:00 Test Item Value Reference Range Interpretation Comments B/C Ratio (test code = B/C Ratio) 33 1 6-25 [place] 298252-09-05 08:09:00 Test Item Value Reference Range Interpretation Comments Globulin (test code = Globulin) 3.7 2.7-4.[address] [facility]2022-09-05 08:09:00 Test Item Value Reference Range Interpretation Comments A/G Ratio (test code = A/G Ratio) 0.6 1 0.7-1.6 [place] 298252-09-05 08:09:00 Test Item Value Reference Range Interpretation Comments eGFR (test code = eGFR) 44 [place] 222412-09-05 08:09:00 Test Item Value Reference Range Interpretation Comments Segs (test code = Segs) 64.4 45.0-75.0 [place] 222412-09-05 08:09:00 Test Item Value Reference Range Interpretation Comments Lymphocytes (test code = Lymphocytes) 23.7 20.0-40.0 [place] 222412-09-05 08:09:00 Test Item Value Reference Range Interpretation Comments Monocytes (test code = Monocytes) 6.2 2.0-12.0 [place] [address]-09-05 08:09:00 Test Item Value Reference Range Interpretation Comments Eosinophils (test code = 4.8 See_Comment [A utomated message] The Eosinophils) system which ge nerated this result tra nsmitted reference range : <=4.0. The reference r alonzo was not used to int erpret this result as normal/abnormal . [facility] CenterCeatgiiKIPQGPBZFC8617-86-44 08:09:00 Test Item Value Reference Range Interpretation Comments Basophils (test code = 0.9 See_Comment [Aut omated message] The Basophils) system which ge nerated this result tra nsmitted reference range : <=1.0. The reference r alonzo was not used to int erpret this result as normal/abnormal . [place] 222412-09-05 08:09:00 Test Item Value Reference Range Interpretation Comments Neutrophils # (test code = Neutrophils 4.0 1.5-8.1 #) [facility] CenterWsncanmYKISUPOTCO8540-03-30 08:09:00 Test Item Value Reference Range Interpretation Comments Lymphocytes # (test code = Lymphocytes 1.5 1.0-5.5 #) [place] 222412-09-05 08:09:00 Test Item Value Reference Range Interpretation Comments Monocytes # (test code 0.4 See_Comment [Aut omated message] The = Monocytes #) system which generated this result tra nsmitted reference range : <=0.8. The reference r alonzo was not used to int erpret this result as normal/abnormal . [facility] CenterNpqvkgyLNHQPKFWWF3500-21-98 08:09:00 Test Item Value Reference Range Interpretation Comments Eosinophils # (test code 0.3 See_Comment [A utomated message] The = Eosinophils #) system whic h generated this result tra nsmitted reference range : <=0.5. The reference r alonzo was not used to int erpret this result as normal/abnormal . [facility] CenterQmiceoeHLCKDMAULP0801-51-11 08:09:00 Test Item Value Reference Range Interpretation Comments Basophils # (test code 0.1 See_Comment [Aut omated message] The = Basophils #) system which generated this result tra nsmitted reference range : <=0.2. The reference r alonzo was not used to int erpret this result as normal/abnormal . [facility] CenterLxykjtzYNWDIAYEFT1201-64-53 08:09:00 Test Item Value Reference Range Interpretation Comments WBC (test code = WBC) 6.3 3.7-10.4 [place] 222412-09-05 08:09:00 Test Item Value Reference Range Interpretation Comments RBC (test code = RBC) 3.00 4.20-5.40 [place] 222412-09-05 08:09:00 Test Item Value Reference Range Interpretation Comments Hgb (test code = Hgb) 8.0 12.0-16.0 [place] 222412-09-05 08:09:00 Test Item Value Reference Range Interpretation Comments Hct (test code = Hct) 25.1 36.0-48.0 [place] 222412-09-05 08:09:00 Test Item Value Reference Range Interpretation Comments MCV (test code = MCV) 83.8 80.0-98.0 [place] 222412-09-05 08:09:00 Test Item Value Reference Range Interpretation Comments MCH (test code = MCH) 26.8 pg 27.0-31.0 [place] 222412-09-05 08:09:00 Test Item Value Reference Range Interpretation Comments MCHC (test code = MCHC) 32.0 32.0-36.0 [place] 222412-09-05 08:09:00 Test Item Value Reference Range Interpretation Comments RDW (test code = RDW) 17.0 11.5-14.5 [place] 222412-09-05 08:09:00 Test Item Value Reference Range Interpretation Comments Platelet (test code = Platelet) 249 133-450 [facility] CenterItatrjsNXUEZUNHIQ8444-45-33 08:09:00 Test Item Value Reference Range Interpretation Comments MPV (test code = MPV) 7.9 7.4-10.[address] [facility]2022-09-05 08:09:00 Test Item Value Reference Range Interpretation Comments Glucose Lvl (test code = Glucose Lvl) 110 70-[address] [facility]2022-09-05 08:09:00 Test Item Value Reference Range Interpretation Comments BUN (test code = BUN) 42 7-22 [place] 298252-09-05 08:09:00 Test Item Value Reference Range Interpretation Comments Creatinine Lvl (test code = Creatinine 1.28 0.50-1.40 Lvl) [place] 298252-09-05 08:09:00 Test Item Value Reference Range Interpretation Comments Sodium Lvl (test code = Sodium Lvl) 142 135-145 [place] 298252-09-05 08:09:00 Test Item Value Reference Range Interpretation Comments Potassium Lvl (test code = Potassium 4.9 3.5-5.1 Lvl) [place] 298252-09-05 08:09:00 Test Item Value Reference Range Interpretation Comments Chloride Lvl (test code = Chloride Lvl) 113 95-109 [place] 298252-09-05 08:09:00 Test Item Value Reference Range Interpretation Comments CO2 (test code = CO2) 23 24-32 [place] 298252-09-05 08:09:00 Test Item Value Reference Range Interpretation Comments Calcium Lvl (test code = Calcium Lvl) 8.3 8.5-10.5 [place] 298252-09-05 08:09:00 Test Item Value Reference Range Interpretation Comments Total Protein (test code = Total 5.9 6.4-8.4 Protein) [place] [address]-09-05 08:09:00 Test Item Value Reference Range Interpretation Comments Albumin Lvl (test code = Albumin Lvl) 2.2 3.5-5.0 [place] 298252-09-05 08:09:00 Test Item Value Reference Range Interpretation Comments ALT (test code = ALT) 8 See_Comment [Auto mated message] The system which ge nerated this result transmit lninea reference range : <=65. The reference range was not used to interpr et this result as sharri l/abnormal. [place] 298252-09-05 08:09:00 Test Item Value Reference Range Interpretation Comments AST (test code = AST) 14 See_Comment [Auto mated message] The system which ge nerated this result transmit linnea reference range : <=37. The reference range was not used to interpr et this result as sharri l/abnormal. [place] [address]-09-05 08:09:00 Test Item Value Reference Range Interpretation Comments Alk Phos (test code = Alk Phos) 41 39-136 [place] 298252-09-05 08:09:00 Test Item Value Reference Range Interpretation Comments Bili Total (test code = Bili Total) 0.1 0.2-1.3 [place] 298252-09-05 08:09:00 Test Item Value Reference Range Interpretation Comments AGAP (test code = AGAP) 10.9 10.0-20.0 [place] 298252-09-05 08:09:00 Test Item Value Reference Range Interpretation Comments B/C Ratio (test code = B/C Ratio) 33 1 6-25 [place] 298252-09-05 08:09:00 Test Item Value Reference Range Interpretation Comments Globulin (test code = Globulin) 3.7 2.7-4.2 [place] 298252-09-05 08:09:00 Test Item Value Reference Range Interpretation Comments A/G Ratio (test code = A/G Ratio) 0.6 1 0.7-1.6 [place] [address]-09-05 08:09:00 Test Item Value Reference Range Interpretation Comments eGFR (test code = eGFR) 44 [place] 222412-09-05 08:09:00 Test Item Value Reference Range Interpretation Comments Segs (test code = Segs) 64.4 45.0-75.0 [place] 222412-09-05 08:09:00 Test Item Value Reference Range Interpretation Comments Lymphocytes (test code = Lymphocytes) 23.7 20.0-40.0 [place] 222412-09-05 08:09:00 Test Item Value Reference Range Interpretation Comments Monocytes (test code = Monocytes) 6.2 2.0-12.0 [place] [address]-09-05 08:09:00 Test Item Value Reference Range Interpretation Comments Eosinophils (test code = 4.8 See_Comment [A utomated message] The Eosinophils) system which ge nerated this result tra nsmitted reference range : <=4.0. The reference r alonzo was not used to int erpret this result as normal/abnormal . [place] 222412-09-05 08:09:00 Test Item Value Reference Range Interpretation Comments Basophils (test code = 0.9 See_Comment [Aut omated message] The Basophils) system which ge nerated this result tra nsmitted reference range : <=1.0. The reference r alonzo was not used to int erpret this result as normal/abnormal . [facility] CenterGmwnjxhHEZJKHQCYF1573-68-62 08:09:00 Test Item Value Reference Range Interpretation Comments Neutrophils # (test code = Neutrophils 4.0 1.5-8.1 #) [facility] CenterOtpoulhDAGMLGGMJQ4341-28-58 08:09:00 Test Item Value Reference Range Interpretation Comments Lymphocytes # (test code = Lymphocytes 1.5 1.0-5.5 #) [facility] CenterAuwqahnYEMBJOFDMN2960-71-04 08:09:00 Test Item Value Reference Range Interpretation Comments Monocytes # (test code 0.4 See_Comment [Aut omated message] The = Monocytes #) system which generated this result tra nsmitted reference range : <=0.8. The reference r alonzo was not used to int erpret this result as normal/abnormal . [facility] CenterVperfssJGQMCYRDMN0988-99-08 08:09:00 Test Item Value Reference Range Interpretation Comments Eosinophils # (test code 0.3 See_Comment [A utomated message] The = Eosinophils #) system whic h generated this result tra nsmitted reference range : <=0.5. The reference r alonzo was not used to int erpret this result as normal/abnormal . [facility] CenterJlvcpvbNQGGNEUYUS2610-93-96 08:09:00 Test Item Value Reference Range Interpretation Comments Basophils # (test code 0.1 See_Comment [Aut omated message] The = Basophils #) system which generated this result tra nsmitted reference range : <=0.2. The reference r alonzo was not used to int erpret this result as normal/abnormal . [facility] CenterNzmjhkmNBDHEZNPOB6757-22-40 08:09:00 Test Item Value Reference Range Interpretation Comments WBC (test code = WBC) 6.3 3.7-10.4 [facility] CenterTnoyvlcVCDYNDPRKB2782-48-22 08:09:00 Test Item Value Reference Range Interpretation Comments RBC (test code = RBC) 3.00 4.20-5.40 [place] 222412-09-05 08:09:00 Test Item Value Reference Range Interpretation Comments Hgb (test code = Hgb) 8.0 12.0-16.0 [place] 222412-09-05 08:09:00 Test Item Value Reference Range Interpretation Comments Hct (test code = Hct) 25.1 36.0-48.0 [place] [address]-09-05 08:09:00 Test Item Value Reference Range Interpretation Comments MCV (test code = MCV) 83.8 80.0-98.0 [place] [address]-09-05 08:09:00 Test Item Value Reference Range Interpretation Comments MCH (test code = MCH) 26.8 pg 27.0-31.0 [place] [address]-09-05 08:09:00 Test Item Value Reference Range Interpretation Comments MCHC (test code = MCHC) 32.0 32.0-36.0 [place] [address]-09-05 08:09:00 Test Item Value Reference Range Interpretation Comments RDW (test code = RDW) 17.0 11.5-14.5 [place] [address]-09-05 08:09:00 Test Item Value Reference Range Interpretation Comments Platelet (test code = Platelet) 249 133450 [place] 222412-09-05 08:09:00 Test Item Value Reference Range Interpretation Comments MPV (test code = MPV) 7.9 7.4-10.4 [place] 298252-09-05 08:09:00 Test Item Value Reference Range Interpretation Comments Glucose Lvl (test code = Glucose Lvl) 110 70-99 [place] 298252-09-05 08:09:00 Test Item Value Reference Range Interpretation Comments BUN (test code = BUN) 42 7-22 [place] 298252-09-05 08:09:00 Test Item Value Reference Range Interpretation Comments Creatinine Lvl (test code = Creatinine 1.28 0.50-1.40 Lvl) [place] 298252-09-05 08:09:00 Test Item Value Reference Range Interpretation Comments Sodium Lvl (test code = Sodium Lvl) 142 135-145 [place] 298252-09-05 08:09:00 Test Item Value Reference Range Interpretation Comments Potassium Lvl (test code = Potassium 4.9 3.5-5.1 Lvl) [place] 298252-09-05 08:09:00 Test Item Value Reference Range Interpretation Comments Chloride Lvl (test code = Chloride Lvl) 113 95-109 [place] 298252-09-05 08:09:00 Test Item Value Reference Range Interpretation Comments CO2 (test code = CO2) 23 24-32 [facility] [id number] 08:09:00 Test Item Value Reference Range Interpretation Comments Calcium Lvl (test code = Calcium Lvl) 8.3 8.5-10.[address] [facility]2022-09-05 08:09:00 Test Item Value Reference Range Interpretation Comments Total Protein (test code = Total 5.9 6.4-8.4 Protein) [place] 298252-09-05 08:09:00 Test Item Value Reference Range Interpretation Comments Albumin Lvl (test code = Albumin Lvl) 2.2 3.5-5.0 [facility] [id number] 08:09:00 Test Item Value Reference Range Interpretation Comments ALT (test code = ALT) 8 See_Comment [Auto mated message] The system which ge nerated this result transmit linnea reference range : <=65. The reference range was not used to interpr et this result as sharri l/abnormal. [facility] [id number] 08:09:00 Test Item Value Reference Range Interpretation Comments AST (test code = AST) 14 See_Comment [Auto mated message] The system which ge nerated this result transmit linnea reference range : <=37. The reference range was not used to interpr et this result as sharri l/abnormal. [facility] [id number] 08:09:00 Test Item Value Reference Range Interpretation Comments Alk Phos (test code = Alk Phos) 41 39-136 [facility] [id number] 08:09:00 Test Item Value Reference Range Interpretation Comments Bili Total (test code = Bili Total) 0.1 0.2-1.3 [facility] [id number] 08:09:00 Test Item Value Reference Range Interpretation Comments AGAP (test code = AGAP) 10.9 10.0-20.0 [facility] [id number] 08:09:00 Test Item Value Reference Range Interpretation Comments B/C Ratio (test code = B/C Ratio) 33 1 6-25 [facility] [id number] 08:09:00 Test Item Value Reference Range Interpretation Comments Globulin (test code = Globulin) 3.7 2.7-4.2 [place] 298252-09-05 08:09:00 Test Item Value Reference Range Interpretation Comments A/G Ratio (test code = A/G Ratio) 0.6 1 0.7-1.6 [place] 298252-09-05 08:09:00 Test Item Value Reference Range Interpretation Comments eGFR (test code = eGFR) 44 [place] 222412-09-05 08:09:00 Test Item Value Reference Range Interpretation Comments Segs (test code = Segs) 64.4 45.0-75.0 [place] 222412-09-05 08:09:00 Test Item Value Reference Range Interpretation Comments Lymphocytes (test code = Lymphocytes) 23.7 20.0-40.0 [place] [address]-09-05 08:09:00 Test Item Value Reference Range Interpretation Comments Monocytes (test code = Monocytes) 6.2 2.0-12.0 [place] [address]-09-05 08:09:00 Test Item Value Reference Range Interpretation Comments Eosinophils (test code = 4.8 See_Comment [A utomated message] The Eosinophils) system which ge nerated this result tra nsmitted reference range : <=4.0. The reference r alonzo was not used to int erpret this result as normal/abnormal . [place] [address]-09-05 08:09:00 Test Item Value Reference Range Interpretation Comments Basophils (test code = 0.9 See_Comment [Aut omated message] The Basophils) system which ge nerated this result tra nsmitted reference range : <=1.0. The reference r alonzo was not used to int erpret this result as normal/abnormal . [place] 222412-09-05 08:09:00 Test Item Value Reference Range Interpretation Comments Neutrophils # (test code = Neutrophils 4.0 1.5-8.1 #) [place] 222412-09-05 08:09:00 Test Item Value Reference Range Interpretation Comments Lymphocytes # (test code = Lymphocytes 1.5 1.0-5.5 #) [place] [address]-09-05 08:09:00 Test Item Value Reference Range Interpretation Comments Monocytes # (test code 0.4 See_Comment [Aut omated message] The = Monocytes #) system which generated this result tra nsmitted reference range : <=0.8. The reference r alonzo was not used to int erpret this result as normal/abnormal . [facility] CenterEoohpvaMHDCEDFZVT5167-11-96 08:09:00 Test Item Value Reference Range Interpretation Comments Eosinophils # (test code 0.3 See_Comment [A utomated message] The = Eosinophils #) system whic h generated this result tra nsmitted reference range : <=0.5. The reference r alonzo was not used to int erpret this result as normal/abnormal . [facility] CenterEbvtoauDWXCXIPAEX5461-29-87 08:09:00 Test Item Value Reference Range Interpretation Comments Basophils # (test code 0.1 See_Comment [Aut omated message] The = Basophils #) system which generated this result tra nsmitted reference range : <=0.2. The reference r alonzo was not used to int erpret this result as normal/abnormal . [facility] CenterBauciwlIWNCGRJDOG6910-53-30 08:09:00 Test Item Value Reference Range Interpretation Comments WBC (test code = WBC) 6.3 3.7-10.4 [facility] CenterKvbgnpkFWLDKGDUQI9896-52-69 08:09:00 Test Item Value Reference Range Interpretation Comments RBC (test code = RBC) 3.00 4.20-5.40 [facility] CenterIcvubkrMHBJCNSVTO9552-56-72 08:09:00 Test Item Value Reference Range Interpretation Comments Hgb (test code = Hgb) 8.0 12.0-16.0 [place] 222412-09-05 08:09:00 Test Item Value Reference Range Interpretation Comments Hct (test code = Hct) 25.1 36.0-48.0 [place] 222412-09-05 08:09:00 Test Item Value Reference Range Interpretation Comments MCV (test code = MCV) 83.8 80.0-98.0 [place] 222412-09-05 08:09:00 Test Item Value Reference Range Interpretation Comments MCH (test code = MCH) 26.8 pg 27.0-31.0 [facility] CenterWypaulvPBWXYARORG2911-84-86 08:09:00 Test Item Value Reference Range Interpretation Comments MCHC (test code = MCHC) 32.0 32.0-36.0 [place] 222412-09-05 08:09:00 Test Item Value Reference Range Interpretation Comments RDW (test code = RDW) 17.0 11.5-14.5 [place] 222412-09-05 08:09:00 Test Item Value Reference Range Interpretation Comments Platelet (test code = Platelet) 249 133-450 [facility] CenterUrrfpdsLONIJPVXZD1461-41-27 08:09:00 Test Item Value Reference Range Interpretation Comments MPV (test code = MPV) 7.9 7.4-10.[address] [facility]2022-09-04 10:21:00 Test Item Value Reference Range Interpretation Comments Glucose Lvl (test code = Glucose Lvl) 101 70-[address] [facility]2022-09-04 10:21:00 Test Item Value Reference Range Interpretation Comments BUN (test code = BUN) 48 7-[address] [facility]2022-09-04 10:21:00 Test Item Value Reference Range Interpretation Comments Creatinine Lvl (test code = Creatinine 1.36 0.50-1.40 Lvl) [facility]2022-09-04 10:21:00 Test Item Value Reference Range Interpretation Comments Sodium Lvl (test code = Sodium Lvl) 143 135-[address] [facility]2022-09-04 10:21:00 Test Item Value Reference Range Interpretation Comments Potassium Lvl (test code = Potassium 4.8 3.5-5.1 Lvl) [facility]2022-09-04 10:21:00 Test Item Value Reference Range Interpretation Comments Chloride Lvl (test code = Chloride Lvl) 115 95-[address] [facility]2022-09-04 10:21:00 Test Item Value Reference Range Interpretation Comments CO2 (test code = CO2) 24 24-[address] [facility]2022-09-04 10:21:00 Test Item Value Reference Range Interpretation Comments Calcium Lvl (test code = Calcium Lvl) 8.2 8.5-10.[address] [facility]2022-09-04 10:21:00 Test Item Value Reference Range Interpretation Comments Total Protein (test code = Total 6.0 6.4-8.4 Protein) [facility]2022-09-04 10:21:00 Test Item Value Reference Range Interpretation Comments Albumin Lvl (test code = Albumin Lvl) 2.3 3.5-5.0 [place] 298252-09-04 10:21:00 Test Item Value Reference Range Interpretation Comments ALT (test code = ALT) 9 See_Comment [Auto mated message] The system which ge nerated this result transmit linnea reference range : <=65. The reference range was not used to interpr et this result as sharri l/abnormal. [facility] [id number] 10:21:00 Test Item Value Reference Range Interpretation Comments AST (test code = AST) 10 See_Comment [Auto mated message] The system which ge nerated this result transmit linnea reference range : <=37. The reference range was not used to interpr et this result as sharri l/abnormal. [facility] [id number] 10:21:00 Test Item Value Reference Range Interpretation Comments Alk Phos (test code = Alk Phos) 40 39-136 [facility] [id number] 10:21:00 Test Item Value Reference Range Interpretation Comments Bili Total (test code = Bili Total) 0.2 0.2-1.3 [facility] [id number] 10:21:00 Test Item Value Reference Range Interpretation Comments AGAP (test code = AGAP) 8.8 10.0-20.0 [facility] [id number] 10:21:00 Test Item Value Reference Range Interpretation Comments B/C Ratio (test code = B/C Ratio) 35 1 6-25 [facility] [id number] 10:21:00 Test Item Value Reference Range Interpretation Comments Globulin (test code = Globulin) 3.7 2.7-4.2 [facility] [id number] 10:21:00 Test Item Value Reference Range Interpretation Comments A/G Ratio (test code = A/G Ratio) 0.6 1 0.7-1.6 [facility] [id number] 10:21:00 Test Item Value Reference Range Interpretation Comments eGFR (test code = eGFR) 41 [place] 222412-09-04 10:21:00 Test Item Value Reference Range Interpretation Comments WBC (test code = WBC) 6.6 3.7-10.4 [place] 222412-09-04 10:21:00 Test Item Value Reference Range Interpretation Comments RBC (test code = RBC) 3.03 4.20-5.40 [facility] CenterArevlqjVHQYZPPIRK7330-54-51 10:21:00 Test Item Value Reference Range Interpretation Comments Hgb (test code = Hgb) 8.1 12.0-16.0 [facility] CenterLalrucdEPTMEABESX7000-40-31 10:21:00 Test Item Value Reference Range Interpretation Comments Hct (test code = Hct) 25.3 36.0-48.0 [facility] CenterZfwtxdqIZRJKYHUCU7881-47-47 10:21:00 Test Item Value Reference Range Interpretation Comments MCV (test code = MCV) 83.5 80.0-98.0 [facility] CenterRgbzudhMQRXDXHSHT8342-87-33 10:21:00 Test Item Value Reference Range Interpretation Comments MCH (test code = MCH) 26.9 pg 27.0-31.0 [facility] CenterPwqseqiZDCMTQIVNN4024-31-72 10:21:00 Test Item Value Reference Range Interpretation Comments MCHC (test code = MCHC) 32.2 32.0-36.0 [facility] CenterUcfhujsGCOLRZWHEX2330-28-28 10:21:00 Test Item Value Reference Range Interpretation Comments RDW (test code = RDW) 16.7 11.5-14.5 [facility] CenterOpphkfyYTEHENOTTS8815-43-18 10:21:00 Test Item Value Reference Range Interpretation Comments Platelet (test code = Platelet) 257 133-450 [facility] CenterTarancfMPQGUBOLDR8911-99-62 10:21:00 Test Item Value Reference Range Interpretation Comments MPV (test code = MPV) 7.1 7.4-10.4 [facility] CenterIeskireLQNQMSARMC9692-18-79 10:21:00 Test Item Value Reference Range Interpretation Comments Segs (test code = Segs) 60.2 45.0-75.0 [facility] CenterOcjusgyIZEPAMLBWI1838-91-89 10:21:00 Test Item Value Reference Range Interpretation Comments Lymphocytes (test code = Lymphocytes) 26.9 20.0-40.0 [facility] CenterXupvwhhRFEHECDTBH1574-93-99 10:21:00 Test Item Value Reference Range Interpretation Comments Monocytes (test code = Monocytes) 7.5 2.0-12.0 [facility] CenterDqlrmffBFFJBQZKBF7840-83-79 10:21:00 Test Item Value Reference Range Interpretation Comments Eosinophils (test code = 5.0 See_Comment [A utomated message] The Eosinophils) system which ge nerated this result tra nsmitted reference range : <=4.0. The reference r alonzo was not used to int erpret this result as normal/abnormal . [facility] CenterNjlgubeDNYJXEYZAU9528-64-96 10:21:00 Test Item Value Reference Range Interpretation Comments Basophils (test code = 0.4 See_Comment [Aut omated message] The Basophils) system which ge nerated this result tra nsmitted reference range : <=1.0. The reference r alonzo was not used to int erpret this result as normal/abnormal . [facility] CenterVqdskraRIBAMGIQLM8957-22-36 10:21:00 Test Item Value Reference Range Interpretation Comments Neutrophils # (test code = Neutrophils 4.0 1.5-8.1 #) [facility] CenterTlhaeceUYOFUHULJA5393-72-47 10:21:00 Test Item Value Reference Range Interpretation Comments Lymphocytes # (test code = Lymphocytes 1.8 1.0-5.5 #) [facility] CenterYgpoghqANNPFVSJZO0042-94-64 10:21:00 Test Item Value Reference Range Interpretation Comments Monocytes # (test code 0.5 See_Comment [Aut omated message] The = Monocytes #) system which generated this result tra nsmitted reference range : <=0.8. The reference r alonzo was not used to int erpret this result as normal/abnormal . [facility] CenterCnjaontVHOZAFVNVD7906-01-69 10:21:00 Test Item Value Reference Range Interpretation Comments Eosinophils # (test code 0.3 See_Comment [A utomated message] The = Eosinophils #) system whic h generated this result tra nsmitted reference range : <=0.5. The reference r alonzo was not used to int erpret this result as normal/abnormal . [facility]2022-09-04 10:21:00 Test Item Value Reference Range Interpretation Comments Glucose Lvl (test code = Glucose Lvl) 101 70-99 [place] 298252-09-04 10:21:00 Test Item Value Reference Range Interpretation Comments BUN (test code = BUN) 48 7-[address] [facility]2022-09-04 10:21:00 Test Item Value Reference Range Interpretation Comments Creatinine Lvl (test code = Creatinine 1.36 0.50-1.40 Lvl) [facility]2022-09-04 10:21:00 Test Item Value Reference Range Interpretation Comments Sodium Lvl (test code = Sodium Lvl) 143 135-145 [facility]FORM[id number] 10:21:00 Test Item Value Reference Range Interpretation Comments Potassium Lvl (test code = Potassium 4.8 3.5-5.1 Lvl) [facility]2022-09-04 10:21:00 Test Item Value Reference Range Interpretation Comments Chloride Lvl (test code = Chloride Lvl) 115 95-109 [facility]FORM[facility]ENTERIUGGR7537-10-26 10:21:00 Test Item Value Reference Range Interpretation Comments CO2 (test code = CO2) 24 24-32 [facility]FORM[id number] 10:21:00 Test Item Value Reference Range Interpretation Comments Calcium Lvl (test code = Calcium Lvl) 8.2 8.5-10.[address] [facility]2022-09-04 10:21:00 Test Item Value Reference Range Interpretation Comments Total Protein (test code = Total 6.0 6.4-8.4 Protein) [facility]2022-09-04 10:21:00 Test Item Value Reference Range Interpretation Comments Albumin Lvl (test code = Albumin Lvl) 2.3 3.5-5.0 [facility] [id number] 10:21:00 Test Item Value Reference Range Interpretation Comments ALT (test code = ALT) 9 See_Comment [Auto mated message] The system which ge nerated this result transmit linnea reference range : <=65. The reference range was not used to interpr et this result as sharri l/abnormal. [facility] [id number] 10:21:00 Test Item Value Reference Range Interpretation Comments AST (test code = AST) 10 See_Comment [Auto mated message] The system which ge nerated this result transmit linnea reference range : <=37. The reference range was not used to interpr et this result as sharri l/abnormal. [facility] [id number] 10:21:00 Test Item Value Reference Range Interpretation Comments Alk Phos (test code = Alk Phos) 40 39-136 [facility] [id number] 10:21:00 Test Item Value Reference Range Interpretation Comments Bili Total (test code = Bili Total) 0.2 0.2-1.[address] [facility]2022-09-04 10:21:00 Test Item Value Reference Range Interpretation Comments AGAP (test code = AGAP) 8.8 10.0-20.0 [place] 298252-09-04 10:21:00 Test Item Value Reference Range Interpretation Comments B/C Ratio (test code = B/C Ratio) 35 1 6-25 [place] 298252-09-04 10:21:00 Test Item Value Reference Range Interpretation Comments Globulin (test code = Globulin) 3.7 2.7-4.[address] [facility]2022-09-04 10:21:00 Test Item Value Reference Range Interpretation Comments A/G Ratio (test code = A/G Ratio) 0.6 1 0.7-1.6 [place] 298252-09-04 10:21:00 Test Item Value Reference Range Interpretation Comments eGFR (test code = eGFR) 41 [facility] CenterRtvrzucOOWHIFNAUA6760-02-61 10:21:00 Test Item Value Reference Range Interpretation Comments WBC (test code = WBC) 6.6 3.7-10.4 [facility] CenterZxjeydmXXXWPJAIDJ1260-38-54 10:21:00 Test Item Value Reference Range Interpretation Comments RBC (test code = RBC) 3.03 4.20-5.40 [place] 222412-09-04 10:21:00 Test Item Value Reference Range Interpretation Comments Hgb (test code = Hgb) 8.1 12.0-16.0 [place] 222412-09-04 10:21:00 Test Item Value Reference Range Interpretation Comments Hct (test code = Hct) 25.3 36.0-48.0 [place] 222412-09-04 10:21:00 Test Item Value Reference Range Interpretation Comments MCV (test code = MCV) 83.5 80.0-98.0 [place] [address]-09-04 10:21:00 Test Item Value Reference Range Interpretation Comments MCH (test code = MCH) 26.9 pg 27.0-31.0 [place] 222412-09-04 10:21:00 Test Item Value Reference Range Interpretation Comments MCHC (test code = MCHC) 32.2 32.0-36.0 [place] 222412-09-04 10:21:00 Test Item Value Reference Range Interpretation Comments RDW (test code = RDW) 16.7 11.5-14.5 [facility] CenterNgajfxtUVIWSASCNZ6355-17-03 10:21:00 Test Item Value Reference Range Interpretation Comments Platelet (test code = Platelet) 257 133-450 [facility] CenterLbhwcatUWJOHVNHCZ1392-15-35 10:21:00 Test Item Value Reference Range Interpretation Comments MPV (test code = MPV) 7.1 7.4-10.4 [facility] CenterFxreoxoMQJQGMCXQO0421-79-09 10:21:00 Test Item Value Reference Range Interpretation Comments Segs (test code = Segs) 60.2 45.0-75.0 [facility] CenterLtscwuaRVASDPICRW8304-57-55 10:21:00 Test Item Value Reference Range Interpretation Comments Lymphocytes (test code = Lymphocytes) 26.9 20.0-40.0 [facility] CenterKavxtisTWCDXJAIJC7611-26-55 10:21:00 Test Item Value Reference Range Interpretation Comments Monocytes (test code = Monocytes) 7.5 2.0-12.0 [facility] CenterKiigxtcUCIXXFZEND8299-30-05 10:21:00 Test Item Value Reference Range Interpretation Comments Eosinophils (test code = 5.0 See_Comment [A utomated message] The Eosinophils) system which ge nerated this result tra nsmitted reference range : <=4.0. The reference r alonzo was not used to int erpret this result as normal/abnormal . [facility] CenterKgzwhduESBOJKUCUY0003-59-11 10:21:00 Test Item Value Reference Range Interpretation Comments Basophils (test code = 0.4 See_Comment [Aut omated message] The Basophils) system which ge nerated this result tra nsmitted reference range : <=1.0. The reference r alonzo was not used to int erpret this result as normal/abnormal . [facility] CenterGifzrqyDCWUBUULSZ7971-61-51 10:21:00 Test Item Value Reference Range Interpretation Comments Neutrophils # (test code = Neutrophils 4.0 1.5-8.1 #) [facility] CenterHdqcpniHAWQKVKFRM4228-67-92 10:21:00 Test Item Value Reference Range Interpretation Comments Lymphocytes # (test code = Lymphocytes 1.8 1.0-5.5 #) [facility] CenterHqcfygxSCQIPTROYF4449-55-08 10:21:00 Test Item Value Reference Range Interpretation Comments Monocytes # (test code 0.5 See_Comment [Aut omated message] The = Monocytes #) system which generated this result tra nsmitted reference range : <=0.8. The reference r alonzo was not used to int erpret this result as normal/abnormal . [facility] CenterOkikomzMGYAJDEDEH5500-60-37 10:21:00 Test Item Value Reference Range Interpretation Comments Eosinophils # (test code 0.3 See_Comment [A utomated message] The = Eosinophils #) system whic h generated this result tra nsmitted reference range : <=0.5. The reference r alonzo was not used to int erpret this result as normal/abnormal . [facility]2022-09-04 10:21:00 Test Item Value Reference Range Interpretation Comments Glucose Lvl (test code = Glucose Lvl) 101 70-[address] [facility]2022-09-04 10:21:00 Test Item Value Reference Range Interpretation Comments BUN (test code = BUN) 48 7-[address] [facility]2022-09-04 10:21:00 Test Item Value Reference Range Interpretation Comments Creatinine Lvl (test code = Creatinine 1.36 0.50-1.40 Lvl) [facility]2022-09-04 10:21:00 Test Item Value Reference Range Interpretation Comments Sodium Lvl (test code = Sodium Lvl) 143 135-[address] [facility]2022-09-04 10:21:00 Test Item Value Reference Range Interpretation Comments Potassium Lvl (test code = Potassium 4.8 3.5-5.1 Lvl) [facility]2022-09-04 10:21:00 Test Item Value Reference Range Interpretation Comments Chloride Lvl (test code = Chloride Lvl) 115 95-[address] [facility]2022-09-04 10:21:00 Test Item Value Reference Range Interpretation Comments CO2 (test code = CO2) 24 24-32 [facility]FORM[id number] 10:21:00 Test Item Value Reference Range Interpretation Comments Calcium Lvl (test code = Calcium Lvl) 8.2 8.5-10.[address] [facility]2022-09-04 10:21:00 Test Item Value Reference Range Interpretation Comments Total Protein (test code = Total 6.0 6.4-8.4 Protein) [facility]2022-09-04 10:21:00 Test Item Value Reference Range Interpretation Comments Albumin Lvl (test code = Albumin Lvl) 2.3 3.5-5.0 [place] 298252-09-04 10:21:00 Test Item Value Reference Range Interpretation Comments ALT (test code = ALT) 9 See_Comment [Auto mated message] The system which ge nerated this result transmit linnea reference range : <=65. The reference range was not used to interpr et this result as sharri l/abnormal. [place] 298252-09-04 10:21:00 Test Item Value Reference Range Interpretation Comments AST (test code = AST) 10 See_Comment [Auto mated message] The system which ge nerated this result transmit linnea reference range : <=37. The reference range was not used to interpr et this result as sharri l/abnormal. [place] 298252-09-04 10:21:00 Test Item Value Reference Range Interpretation Comments Alk Phos (test code = Alk Phos) 40 39-136 [place] 298252-09-04 10:21:00 Test Item Value Reference Range Interpretation Comments Bili Total (test code = Bili Total) 0.2 0.2-1.3 [place] 298252-09-04 10:21:00 Test Item Value Reference Range Interpretation Comments AGAP (test code = AGAP) 8.8 10.0-20.0 [place] 298252-09-04 10:21:00 Test Item Value Reference Range Interpretation Comments B/C Ratio (test code = B/C Ratio) 35 1 6-25 [place] 298252-09-04 10:21:00 Test Item Value Reference Range Interpretation Comments Globulin (test code = Globulin) 3.7 2.7-4.2 [place] 298252-09-04 10:21:00 Test Item Value Reference Range Interpretation Comments A/G Ratio (test code = A/G Ratio) 0.6 1 0.7-1.6 [place] 298252-09-04 10:21:00 Test Item Value Reference Range Interpretation Comments eGFR (test code = eGFR) 41 [facility] CenterSizzbiaDONLAENZUR4407-05-28 10:21:00 Test Item Value Reference Range Interpretation Comments WBC (test code = WBC) 6.6 3.7-10.4 [facility] CenterCydszsySCPEMGBPQA6686-87-13 10:21:00 Test Item Value Reference Range Interpretation Comments RBC (test code = RBC) 3.03 4.20-5.40 [facility] CenterTzmwkmvEOWHDZKZRC3435-12-46 10:21:00 Test Item Value Reference Range Interpretation Comments Hgb (test code = Hgb) 8.1 12.0-16.0 [facility] CenterOngmdrpXRZIVOVCLH1820-31-22 10:21:00 Test Item Value Reference Range Interpretation Comments Hct (test code = Hct) 25.3 36.0-48.0 [facility] CenterWtuenkiVWUFYZZYAJ9335-05-67 10:21:00 Test Item Value Reference Range Interpretation Comments MCV (test code = MCV) 83.5 80.0-98.0 [facility] CenterIokubliUITCXBUJEO9956-88-92 10:21:00 Test Item Value Reference Range Interpretation Comments MCH (test code = MCH) 26.9 pg 27.0-31.0 [facility] CenterXvkhkgzAWRKQTKEAM3194-09-11 10:21:00 Test Item Value Reference Range Interpretation Comments MCHC (test code = MCHC) 32.2 32.0-36.0 [facility] CenterHgdixnhCFRICKXBZE4556-39-24 10:21:00 Test Item Value Reference Range Interpretation Comments RDW (test code = RDW) 16.7 11.5-14.5 [facility] CenterYlcgpvpJTCTTKXMLA9960-31-30 10:21:00 Test Item Value Reference Range Interpretation Comments Platelet (test code = Platelet) 257 133-450 [facility] CenterPmcihdcPTETTQOBHC9238-76-96 10:21:00 Test Item Value Reference Range Interpretation Comments MPV (test code = MPV) 7.1 7.4-10.4 [facility] CenterCdztnvbKYVIVRNRIF3092-26-98 10:21:00 Test Item Value Reference Range Interpretation Comments Segs (test code = Segs) 60.2 45.0-75.0 [facility] CenterLksyhsuQTOXCISPCY5855-05-80 10:21:00 Test Item Value Reference Range Interpretation Comments Lymphocytes (test code = Lymphocytes) 26.9 20.0-40.0 [facility] CenterRiwbqgyUPFIWZOKAH7612-22-24 10:21:00 Test Item Value Reference Range Interpretation Comments Monocytes (test code = Monocytes) 7.5 2.0-12.0 [facility] CenterXzdncmhBBGKUPWKKS5168-07-75 10:21:00 Test Item Value Reference Range Interpretation Comments Eosinophils (test code = 5.0 See_Comment [A utomated message] The Eosinophils) system which ge nerated this result tra nsmitted reference range : <=4.0. The reference r alonzo was not used to int erpret this result as normal/abnormal . [facility] CenterVwullgoMEMUDQZGSF1768-85-27 10:21:00 Test Item Value Reference Range Interpretation Comments Basophils (test code = 0.4 See_Comment [Aut omated message] The Basophils) system which ge nerated this result tra nsmitted reference range : <=1.0. The reference r alonzo was not used to int erpret this result as normal/abnormal . [facility] CenterHxwfrdzJPAZKFRAAF9840-75-78 10:21:00 Test Item Value Reference Range Interpretation Comments Neutrophils # (test code = Neutrophils 4.0 1.5-8.1 #) [facility] CenterWkhvpiqCWFSIKJUJO9602-14-03 10:21:00 Test Item Value Reference Range Interpretation Comments Lymphocytes # (test code = Lymphocytes 1.8 1.0-5.5 #) [facility] CenterRkrqdvyQFENCJQUWA4707-47-08 10:21:00 Test Item Value Reference Range Interpretation Comments Monocytes # (test code 0.5 See_Comment [Aut omated message] The = Monocytes #) system which generated this result tra nsmitted reference range : <=0.8. The reference r alonzo was not used to int erpret this result as normal/abnormal . [facility] CenterZdbywhyWQURFHJCSE5066-96-58 10:21:00 Test Item Value Reference Range Interpretation Comments Eosinophils # (test code 0.3 See_Comment [A utomated message] The = Eosinophils #) system whic h generated this result tra nsmitted reference range : <=0.5. The reference r alonzo was not used to int erpret this result as normal/abnormal . [place] 298252-09-03 09:21:00 Test Item Value Reference Range Interpretation Comments Glucose Lvl (test code = Glucose Lvl) 95 70-99 [place] 298252-09-03 09:21:00 Test Item Value Reference Range Interpretation Comments BUN (test code = BUN) 55 7-22 [place] 298252-09-03 09:21:00 Test Item Value Reference Range Interpretation Comments Creatinine Lvl (test code = Creatinine 1.59 0.50-1.40 Lvl) [place] 298252-09-03 09:21:00 Test Item Value Reference Range Interpretation Comments Sodium Lvl (test code = Sodium Lvl) 142 135-145 [place] 298252-09-03 09:21:00 Test Item Value Reference Range Interpretation Comments Potassium Lvl (test code = Potassium 4.7 3.5-5.1 Lvl) [place] 298252-09-03 09:21:00 Test Item Value Reference Range Interpretation Comments Chloride Lvl (test code = Chloride Lvl) 112 95-109 [place] 298252-09-03 09:21:00 Test Item Value Reference Range Interpretation Comments CO2 (test code = CO2) 26 24-32 [place] 298252-09-03 09:21:00 Test Item Value Reference Range Interpretation Comments Calcium Lvl (test code = Calcium Lvl) 8.2 8.5-10.5 [place] 298252-09-03 09:21:00 Test Item Value Reference Range Interpretation Comments Total Protein (test code = Total 6.1 6.4-8.4 Protein) [place] 298252-09-03 09:21:00 Test Item Value Reference Range Interpretation Comments Albumin Lvl (test code = Albumin Lvl) 2.4 3.5-5.0 [place] 298252-09-03 09:21:00 Test Item Value Reference Range Interpretation Comments ALT (test code = ALT) 9 See_Comment [Auto mated message] The system which ge nerated this result transmit linnea reference range : <=65. The reference range was not used to interpr et this result as sharri l/abnormal. [place] 298252-09-03 09:21:00 Test Item Value Reference Range Interpretation Comments AST (test code = AST) 11 See_Comment [Auto mated message] The system which ge nerated this result transmit linnea reference range : <=37. The reference range was not used to interpr et this result as sharri l/abnormal. [place] [address]-09-03 09:21:00 Test Item Value Reference Range Interpretation Comments Alk Phos (test code = Alk Phos) 41 39-136 [place] 298252-09-03 09:21:00 Test Item Value Reference Range Interpretation Comments Bili Total (test code = Bili Total) 0.3 0.2-1.3 [place] 298252-09-03 09:21:00 Test Item Value Reference Range Interpretation Comments AGAP (test code = AGAP) 8.7 10.0-20.0 [place] 298252-09-03 09:21:00 Test Item Value Reference Range Interpretation Comments B/C Ratio (test code = B/C Ratio) 35 1 6-25 [place] 298252-09-03 09:21:00 Test Item Value Reference Range Interpretation Comments Globulin (test code = Globulin) 3.7 2.7-4.2 [place] 298252-09-03 09:21:00 Test Item Value Reference Range Interpretation Comments A/G Ratio (test code = A/G Ratio) 0.6 1 0.7-1.6 [place] 298252-09-03 09:21:00 Test Item Value Reference Range Interpretation Comments eGFR (test code = eGFR) 34 [place] 222412-09-03 09:21:00 Test Item Value Reference Range Interpretation Comments WBC (test code = WBC) 6.7 3.7-10.4 [place] [address]-09-03 09:21:00 Test Item Value Reference Range Interpretation Comments RBC (test code = RBC) 2.89 4.20-5.40 [place] 222412-09-03 09:21:00 Test Item Value Reference Range Interpretation Comments Hgb (test code = Hgb) 7.9 12.0-16.0 [place] [address]-09-03 09:21:00 Test Item Value Reference Range Interpretation Comments Hct (test code = Hct) 24.1 36.0-48.0 [place] [address]-09-03 09:21:00 Test Item Value Reference Range Interpretation Comments MCV (test code = MCV) 83.6 80.0-98.0 [place] [address]-09-03 09:21:00 Test Item Value Reference Range Interpretation Comments MCH (test code = MCH) 27.2 pg 27.0-31.0 [place] [address]-09-03 09:21:00 Test Item Value Reference Range Interpretation Comments MCHC (test code = MCHC) 32.6 32.0-36.0 [place] 222412-09-03 09:21:00 Test Item Value Reference Range Interpretation Comments RDW (test code = RDW) 17.1 11.5-14.5 [place] 222412-09-03 09:21:00 Test Item Value Reference Range Interpretation Comments Platelet (test code = Platelet) 243 133-450 [place] 222412-09-03 09:21:00 Test Item Value Reference Range Interpretation Comments MPV (test code = MPV) 7.5 7.4-10.4 [place] [address]-09-03 09:21:00 Test Item Value Reference Range Interpretation Comments Segs (test code = Segs) 63.2 45.0-75.0 [place] [address]-09-03 09:21:00 Test Item Value Reference Range Interpretation Comments Lymphocytes (test code = Lymphocytes) 25.4 20.0-40.0 [place] [address]-09-03 09:21:00 Test Item Value Reference Range Interpretation Comments Monocytes (test code = Monocytes) 6.0 2.0-12.0 [place] 222412-09-03 09:21:00 Test Item Value Reference Range Interpretation Comments Eosinophils (test code = 5.0 See_Comment [A utomated message] The Eosinophils) system which ge nerated this result tra nsmitted reference range : <=4.0. The reference r alonzo was not used to int erpret this result as normal/abnormal . [place] 222412-09-03 09:21:00 Test Item Value Reference Range Interpretation Comments Basophils (test code = 0.4 See_Comment [Aut omated message] The Basophils) system which ge nerated this result tra nsmitted reference range : <=1.0. The reference r alonzo was not used to int erpret this result as normal/abnormal . [place] [address]-09-03 09:21:00 Test Item Value Reference Range Interpretation Comments Neutrophils # (test code = Neutrophils 4.2 1.5-8.1 #) [place] [address]-09-03 09:21:00 Test Item Value Reference Range Interpretation Comments Lymphocytes # (test code = Lymphocytes 1.7 1.0-5.5 #) [place] 222412-09-03 09:21:00 Test Item Value Reference Range Interpretation Comments Monocytes # (test code 0.4 See_Comment [Aut omated message] The = Monocytes #) system which generated this result tra nsmitted reference range : <=0.8. The reference r alonzo was not used to int erpret this result as normal/abnormal . [place] [address]-09-03 09:21:00 Test Item Value Reference Range Interpretation Comments Eosinophils # (test code 0.3 See_Comment [A utomated message] The = Eosinophils #) system whic h generated this result tra nsmitted reference range : <=0.5. The reference r alonzo was not used to int erpret this result as normal/abnormal . [place] 298252-09-03 09:21:00 Test Item Value Reference Range Interpretation Comments Glucose Lvl (test code = Glucose Lvl) 95 70-99 [place] 298252-09-03 09:21:00 Test Item Value Reference Range Interpretation Comments BUN (test code = BUN) 55 7-22 [place] [address]-09-03 09:21:00 Test Item Value Reference Range Interpretation Comments Creatinine Lvl (test code = Creatinine 1.59 0.50-1.40 Lvl) [place] [address]-09-03 09:21:00 Test Item Value Reference Range Interpretation Comments Sodium Lvl (test code = Sodium Lvl) 142 135-145 [place] 298252-09-03 09:21:00 Test Item Value Reference Range Interpretation Comments Potassium Lvl (test code = Potassium 4.7 3.5-5.1 Lvl) [place] [address]-09-03 09:21:00 Test Item Value Reference Range Interpretation Comments Chloride Lvl (test code = Chloride Lvl) 112 95-109 [place] [address]-09-03 09:21:00 Test Item Value Reference Range Interpretation Comments CO2 (test code = CO2) 26 24-32 [place] [address]-09-03 09:21:00 Test Item Value Reference Range Interpretation Comments Calcium Lvl (test code = Calcium Lvl) 8.2 8.5-10.5 [place] [address]-09-03 09:21:00 Test Item Value Reference Range Interpretation Comments Total Protein (test code = Total 6.1 6.4-8.4 Protein) [facility] [id number] 09:21:00 Test Item Value Reference Range Interpretation Comments Albumin Lvl (test code = Albumin Lvl) 2.4 3.5-5.0 [facility] [id number] 09:21:00 Test Item Value Reference Range Interpretation Comments ALT (test code = ALT) 9 See_Comment [Auto mated message] The system which ge nerated this result transmit linnea reference range : <=65. The reference range was not used to interpr et this result as sharri l/abnormal. [facility] [id number] 09:21:00 Test Item Value Reference Range Interpretation Comments AST (test code = AST) 11 See_Comment [Auto mated message] The system which ge nerated this result transmit linnea reference range : <=37. The reference range was not used to interpr et this result as sharri l/abnormal. [facility] [id number] 09:21:00 Test Item Value Reference Range Interpretation Comments Alk Phos (test code = Alk Phos) 41 39-136 [facility] [id number] 09:21:00 Test Item Value Reference Range Interpretation Comments Bili Total (test code = Bili Total) 0.3 0.2-1.3 [facility] [id number] 09:21:00 Test Item Value Reference Range Interpretation Comments AGAP (test code = AGAP) 8.7 10.0-20.0 [facility] [id number] 09:21:00 Test Item Value Reference Range Interpretation Comments B/C Ratio (test code = B/C Ratio) 35 1 6-25 [facility] [id number] 09:21:00 Test Item Value Reference Range Interpretation Comments Globulin (test code = Globulin) 3.7 2.7-4.2 [facility] [id number] 09:21:00 Test Item Value Reference Range Interpretation Comments A/G Ratio (test code = A/G Ratio) 0.6 1 0.7-1.6 [facility] [id number] 09:21:00 Test Item Value Reference Range Interpretation Comments eGFR (test code = eGFR) 34 [facility] CenterDuqvzhvPTWTHUGXBV9548-17-40 09:21:00 Test Item Value Reference Range Interpretation Comments WBC (test code = WBC) 6.7 3.7-10.4 [facility] CenterPvgxwdwSWDBFGRBTE4165-21-30 09:21:00 Test Item Value Reference Range Interpretation Comments RBC (test code = RBC) 2.89 4.20-5.40 [facility] CenterGmaafgrHKZTWSILLU3645-87-82 09:21:00 Test Item Value Reference Range Interpretation Comments Hgb (test code = Hgb) 7.9 12.0-16.0 [facility] CenterUsifglyALFZXWVWPP7765-87-56 09:21:00 Test Item Value Reference Range Interpretation Comments Hct (test code = Hct) 24.1 36.0-48.0 [facility] C[id number] 09:21:00 Test Item Value Reference Range Interpretation Comments MCV (test code = MCV) 83.6 80.0-98.0 [facility] CenterGajdnypMVDPDYOSMV5494-82-60 09:21:00 Test Item Value Reference Range Interpretation Comments MCH (test code = MCH) 27.2 pg 27.0-31.0 [facility] CenterUigkzjiCJRYAHGGSP2465-04-36 09:21:00 Test Item Value Reference Range Interpretation Comments MCHC (test code = MCHC) 32.6 32.0-36.0 [facility] CenterWxbojvtSRKOBVLWNS6905-18-82 09:21:00 Test Item Value Reference Range Interpretation Comments RDW (test code = RDW) 17.1 11.5-14.5 [facility] CenterGodxkadSHFNZHIJHB9041-39-03 09:21:00 Test Item Value Reference Range Interpretation Comments Platelet (test code = Platelet) 243 133-450 [facility] CenterRzytwppLBEQYPQQMP6581-92-41 09:21:00 Test Item Value Reference Range Interpretation Comments MPV (test code = MPV) 7.5 7.4-10.4 [place] 222412-09-03 09:21:00 Test Item Value Reference Range Interpretation Comments Segs (test code = Segs) 63.2 45.0-75.0 [facility] CenterLgyrkocOXAYGTSJSI6394-74-36 09:21:00 Test Item Value Reference Range Interpretation Comments Lymphocytes (test code = Lymphocytes) 25.4 20.0-40.0 [facility] CenterQvitobuROZHREHJTR7814-21-40 09:21:00 Test Item Value Reference Range Interpretation Comments Monocytes (test code = Monocytes) 6.0 2.0-12.0 [facility] CenterQkxduheKWFYKZQIUG9711-05-05 09:21:00 Test Item Value Reference Range Interpretation Comments Eosinophils (test code = 5.0 See_Comment [A utomated message] The Eosinophils) system which ge nerated this result tra nsmitted reference range : <=4.0. The reference r alonzo was not used to int erpret this result as normal/abnormal . [place] 222412-09-03 09:21:00 Test Item Value Reference Range Interpretation Comments Basophils (test code = 0.4 See_Comment [Aut omated message] The Basophils) system which ge nerated this result tra nsmitted reference range : <=1.0. The reference r alonzo was not used to int erpret this result as normal/abnormal . [place] 222412-09-03 09:21:00 Test Item Value Reference Range Interpretation Comments Neutrophils # (test code = Neutrophils 4.2 1.5-8.1 #) [place] 222412-09-03 09:21:00 Test Item Value Reference Range Interpretation Comments Lymphocytes # (test code = Lymphocytes 1.7 1.0-5.5 #) [place] 222412-09-03 09:21:00 Test Item Value Reference Range Interpretation Comments Monocytes # (test code 0.4 See_Comment [Aut omated message] The = Monocytes #) system which generated this result tra nsmitted reference range : <=0.8. The reference r alonzo was not used to int erpret this result as normal/abnormal . [place] 222412-09-03 09:21:00 Test Item Value Reference Range Interpretation Comments Eosinophils # (test code 0.3 See_Comment [A utomated message] The = Eosinophils #) system whic h generated this result tra nsmitted reference range : <=0.5. The reference r alonzo was not used to int erpret this result as normal/abnormal . [place] 298252-09-03 09:21:00 Test Item Value Reference Range Interpretation Comments Glucose Lvl (test code = Glucose Lvl) 95 70-99 [place] 298252-09-03 09:21:00 Test Item Value Reference Range Interpretation Comments BUN (test code = BUN) 55 7-22 [place] 298252-09-03 09:21:00 Test Item Value Reference Range Interpretation Comments Creatinine Lvl (test code = Creatinine 1.59 0.50-1.40 Lvl) [place] [address]-09-03 09:21:00 Test Item Value Reference Range Interpretation Comments Sodium Lvl (test code = Sodium Lvl) 142 135-145 [place] [address]-09-03 09:21:00 Test Item Value Reference Range Interpretation Comments Potassium Lvl (test code = Potassium 4.7 3.5-5.1 Lvl) [place] [address]-09-03 09:21:00 Test Item Value Reference Range Interpretation Comments Chloride Lvl (test code = Chloride Lvl) 112 95-109 [place] 298252-09-03 09:21:00 Test Item Value Reference Range Interpretation Comments CO2 (test code = CO2) 26 24-32 [place] 298252-09-03 09:21:00 Test Item Value Reference Range Interpretation Comments Calcium Lvl (test code = Calcium Lvl) 8.2 8.5-10.5 [place] [address]-09-03 09:21:00 Test Item Value Reference Range Interpretation Comments Total Protein (test code = Total 6.1 6.4-8.4 Protein) [place] [address]-09-03 09:21:00 Test Item Value Reference Range Interpretation Comments Albumin Lvl (test code = Albumin Lvl) 2.4 3.5-5.0 [place] [address]-09-03 09:21:00 Test Item Value Reference Range Interpretation Comments ALT (test code = ALT) 9 See_Comment [Auto mated message] The system which ge nerated this result transmit linnea reference range : <=65. The reference range was not used to interpr et this result as sharri l/abnormal. [place] [address]-09-03 09:21:00 Test Item Value Reference Range Interpretation Comments AST (test code = AST) 11 See_Comment [Auto mated message] The system which ge nerated this result transmit linnea reference range : <=37. The reference range was not used to interpr et this result as sharri l/abnormal. [place] [address]-09-03 09:21:00 Test Item Value Reference Range Interpretation Comments Alk Phos (test code = Alk Phos) 41 39-136 [place] 298252-09-03 09:21:00 Test Item Value Reference Range Interpretation Comments Bili Total (test code = Bili Total) 0.3 0.2-1.3 [place] 298252-09-03 09:21:00 Test Item Value Reference Range Interpretation Comments AGAP (test code = AGAP) 8.7 10.0-20.0 [place] 298252-09-03 09:21:00 Test Item Value Reference Range Interpretation Comments B/C Ratio (test code = B/C Ratio) 35 1 6-25 [place] 298252-09-03 09:21:00 Test Item Value Reference Range Interpretation Comments Globulin (test code = Globulin) 3.7 2.7-4.2 [place] 298252-09-03 09:21:00 Test Item Value Reference Range Interpretation Comments A/G Ratio (test code = A/G Ratio) 0.6 1 0.7-1.6 [place] [address]-09-03 09:21:00 Test Item Value Reference Range Interpretation Comments eGFR (test code = eGFR) 34 [place] 222412-09-03 09:21:00 Test Item Value Reference Range Interpretation Comments WBC (test code = WBC) 6.7 3.7-10.4 [place] 222412-09-03 09:21:00 Test Item Value Reference Range Interpretation Comments RBC (test code = RBC) 2.89 4.20-5.40 [place] [address]-09-03 09:21:00 Test Item Value Reference Range Interpretation Comments Hgb (test code = Hgb) 7.9 12.0-16.0 [place] [address]-09-03 09:21:00 Test Item Value Reference Range Interpretation Comments Hct (test code = Hct) 24.1 36.0-48.0 [place] [address]-09-03 09:21:00 Test Item Value Reference Range Interpretation Comments MCV (test code = MCV) 83.6 80.0-98.0 [place] [address]-09-03 09:21:00 Test Item Value Reference Range Interpretation Comments MCH (test code = MCH) 27.2 pg 27.0-31.0 [place] 222412-09-03 09:21:00 Test Item Value Reference Range Interpretation Comments MCHC (test code = MCHC) 32.6 32.0-36.0 [place] 222412-09-03 09:21:00 Test Item Value Reference Range Interpretation Comments RDW (test code = RDW) 17.1 11.5-14.5 [place] 222412-09-03 09:21:00 Test Item Value Reference Range Interpretation Comments Platelet (test code = Platelet) 243 133-450 [facility] CenterRtcobwnFPLOERONCD6003-37-50 09:21:00 Test Item Value Reference Range Interpretation Comments MPV (test code = MPV) 7.5 7.4-10.4 [place] 222412-09-03 09:21:00 Test Item Value Reference Range Interpretation Comments Segs (test code = Segs) 63.2 45.0-75.0 [place] 222412-09-03 09:21:00 Test Item Value Reference Range Interpretation Comments Lymphocytes (test code = Lymphocytes) 25.4 20.0-40.0 [place] 222412-09-03 09:21:00 Test Item Value Reference Range Interpretation Comments Monocytes (test code = Monocytes) 6.0 2.0-12.0 [place] 222412-09-03 09:21:00 Test Item Value Reference Range Interpretation Comments Eosinophils (test code = 5.0 See_Comment [A utomated message] The Eosinophils) system which ge nerated this result tra nsmitted reference range : <=4.0. The reference r alonzo was not used to int erpret this result as normal/abnormal . [place] 222412-09-03 09:21:00 Test Item Value Reference Range Interpretation Comments Basophils (test code = 0.4 See_Comment [Aut omated message] The Basophils) system which ge nerated this result tra nsmitted reference range : <=1.0. The reference r alonzo was not used to int erpret this result as normal/abnormal . [place] 222412-09-03 09:21:00 Test Item Value Reference Range Interpretation Comments Neutrophils # (test code = Neutrophils 4.2 1.5-8.1 #) [facility] CenterVpsdyomHKGJMWAESU8350-91-53 09:21:00 Test Item Value Reference Range Interpretation Comments Lymphocytes # (test code = Lymphocytes 1.7 1.0-5.5 #) [facility] CenterYoyluffYDCQYRWFLX5324-99-16 09:21:00 Test Item Value Reference Range Interpretation Comments Monocytes # (test code 0.4 See_Comment [Aut omated message] The = Monocytes #) system which generated this result tra nsmitted reference range : <=0.8. The reference r alonzo was not used to int erpret this result as normal/abnormal . [facility] CenterTfkenunUTYPVIOSRN5801-87-49 09:21:00 Test Item Value Reference Range Interpretation Comments Eosinophils # (test code 0.3 See_Comment [A utomated message] The = Eosinophils #) system whic h generated this result tra nsmitted reference range : <=0.5. The reference r alonzo was not used to int erpret this result as normal/abnormal . [facility] AND [id number] 00:09:00 Test Item Value Reference Range Interpretation Comments UA Color (test code = Yellow *NA*(03/26/22 7:09 UA Color) PM) [facility] AND [id number] 00:09:00 Test Item Value Reference Range Interpretation Comments UA Turbidity (test code Cloudy *ABN*(03/26/22 = UA Turbidity) 7:09 PM) [facility] AND [id number] 00:09:00 Test Item Value Reference Range Interpretation Comments UA Spec Grav (test code = UA Spec 1.010 1 Grav) [facility] AND [id number] 00:09:00 Test Item Value Reference Range Interpretation Comments UA pH (test code = UA pH) 6.0 1 5.0-8.0 [facility] AND [id number] 00:09:00 Test Item Value Reference Range Interpretation Comments UA Protein (test code = UA Protein) 100 mg/dL [facility] AND [id number] 00:09:00 Test Item Value Reference Range Interpretation Comments UA Glucose (test code Negative (03/26/22 7:09 = UA Glucose) PM) [facility] AND [id number] 00:09:00 Test Item Value Reference Range Interpretation Comments UA Ketones (test code Negative *NA*(03/26/22 = UA Ketones) 7:09 PM) [facility] [id number] 00:09:00 Test Item Value Reference Range Interpretation Comments UA Bili (test code = Negative *NA*(03/26/22 UA Bili) 7:09 PM) [facility] [id number] 00:09:00 Test Item Value Reference Range Interpretation Comments UA Blood (test code = Large *ABN*(03/26/22 UA Blood) 7:09 PM) [facility] [id number] 00:09:00 Test Item Value Reference Range Interpretation Comments UA Urobilinogen (test code = UA 0.2 0.1-1.0 Urobilinogen) [facility] [id number] 00:09:00 Test Item Value Reference Range Interpretation Comments UA Nitrite (test code Negative (03/26/22 7:09 = UA Nitrite) PM) [facility] AND [id number] 00:09:00 Test Item Value Reference Range Interpretation Comments UA Leuk Est (test code Large *ABN*(03/26/22 7:09 = UA Leuk Est) PM) [facility] AND [id number] 00:09:00 Test Item Value Reference Range Interpretation Comments UA WBC (test code = >100 /HPF See_Comment [Automa linnea message] The UA WBC) system which ge nerated this result tra nsmitted reference range : <=5. The reference range was not used to interpr et this result as normal/abnormal . [facility] [id number] 00:09:00 Test Item Value Reference Range Interpretation Comments UA Sq Epi (test code = UA Sq Occasional /LPF Epi) [facility] AND [id number] 00:09:00 Test Item Value Reference Range Interpretation Comments UA RBC (test code = 2 See_Comment [Automa linnea message] The UA RBC) system which ge nerated this result transmit linnea reference range : <=2. The reference range was not used to interpr et this result as sharri l/abnormal. [facility] [id number] 00:09:00 Test Item Value Reference Range Interpretation Comments UA Bacteria (test code = UA Few /HPF Bacteria) [facility] [id number] 00:09:00 Test Item Value Reference Range Interpretation Comments Culture: Urine (test code = No Growth Culture: Urine) [facility] AND [id number] 00:09:00 Test Item Value Reference Range Interpretation Comments UA Color (test code = Yellow *NA*(03/26/22 7:09 UA Color) PM) [facility] AND [id number] 00:09:00 Test Item Value Reference Range Interpretation Comments UA Turbidity (test code Cloudy *ABN*(03/26/22 = UA Turbidity) 7:09 PM) [facility] AND [id number] 00:09:00 Test Item Value Reference Range Interpretation Comments UA Spec Grav (test code = UA Spec 1.010 1 Grav) [facility] AND [id number] 00:09:00 Test Item Value Reference Range Interpretation Comments UA pH (test code = UA pH) 6.0 1 5.0-8.0 [facility] AND [id number] 00:09:00 Test Item Value Reference Range Interpretation Comments UA Protein (test code = UA Protein) 100 mg/dL [facility] AND [id number] 00:09:00 Test Item Value Reference Range Interpretation Comments UA Glucose (test code Negative (03/26/22 7:09 = UA Glucose) PM) [facility] AND [id number] 00:09:00 Test Item Value Reference Range Interpretation Comments UA Ketones (test code Negative *NA*(03/26/22 = UA Ketones) 7:09 PM) [facility] AND [id number] 00:09:00 Test Item Value Reference Range Interpretation Comments UA Bili (test code = Negative *NA*(03/26/22 UA Bili) 7:09 PM) [facility] AND [id number] 00:09:00 Test Item Value Reference Range Interpretation Comments UA Blood (test code = Large *ABN*(03/26/22 UA Blood) 7:09 PM) [facility] AND [id number] 00:09:00 Test Item Value Reference Range Interpretation Comments UA Urobilinogen (test code = UA 0.2 0.1-1.0 Urobilinogen) [facility] AND [id number] 00:09:00 Test Item Value Reference Range Interpretation Comments UA Nitrite (test code Negative (03/26/22 7:09 = UA Nitrite) PM) [facility] AND [id number] 00:09:00 Test Item Value Reference Range Interpretation Comments UA Leuk Est (test code Large *ABN*(03/26/22 7:09 = UA Leuk Est) PM) [facility] AND [id number] 00:09:00 Test Item Value Reference Range Interpretation Comments UA WBC (test code = >100 /HPF See_Comment [Automa linnea message] The UA WBC) system which ge nerated this result tra nsmitted reference range : <=5. The reference range was not used to interpr et this result as normal/abnormal . [facility] AND [id number] 00:09:00 Test Item Value Reference Range Interpretation Comments UA Sq Epi (test code = UA Sq Occasional /LPF Epi) [facility] AND [id number] 00:09:00 Test Item Value Reference Range Interpretation Comments UA RBC (test code = 2 See_Comment [Automa linnea message] The UA RBC) system which ge nerated this result transmit linnea reference range : <=2. The reference range was not used to interpr et this result as sharri l/abnormal. [facility] AND [id number] 00:09:00 Test Item Value Reference Range Interpretation Comments UA Bacteria (test code = UA Few /HPF Bacteria) [facility] [id number] 00:09:00 Test Item Value Reference Range Interpretation Comments Culture: Urine (test code = No Growth Culture: Urine) [facility] AND [id number] 00:09:00 Test Item Value Reference Range Interpretation Comments UA Color (test code = Yellow *NA*(03/26/22 7:09 UA Color) PM) [facility] AND [id number] 00:09:00 Test Item Value Reference Range Interpretation Comments UA Turbidity (test code Cloudy *ABN*(03/26/22 = UA Turbidity) 7:09 PM) [facility] AND [id number] 00:09:00 Test Item Value Reference Range Interpretation Comments UA Spec Grav (test code = UA Spec 1.010 1 Grav) [facility] AND [id number] 00:09:00 Test Item Value Reference Range Interpretation Comments UA pH (test code = UA pH) 6.0 1 5.0-8.0 [facility] AND [id number] 00:09:00 Test Item Value Reference Range Interpretation Comments UA Protein (test code = UA Protein) 100 mg/dL [facility] AND [id number] 00:09:00 Test Item Value Reference Range Interpretation Comments UA Glucose (test code Negative (03/26/22 7:09 = UA Glucose) PM) [facility] AND [id number] 00:09:00 Test Item Value Reference Range Interpretation Comments UA Ketones (test code Negative *NA*(03/26/22 = UA Ketones) 7:09 PM) [facility] AND [id number] 00:09:00 Test Item Value Reference Range Interpretation Comments UA Bili (test code = Negative *NA*(03/26/22 UA Bili) 7:09 PM) [facility] AND [id number] 00:09:00 Test Item Value Reference Range Interpretation Comments UA Blood (test code = Large *ABN*(03/26/22 UA Blood) 7:09 PM) [facility] AND [id number] 00:09:00 Test Item Value Reference Range Interpretation Comments UA Urobilinogen (test code = UA 0.2 0.1-1.0 Urobilinogen) [facility] AND [id number] 00:09:00 Test Item Value Reference Range Interpretation Comments UA Nitrite (test code Negative (03/26/22 7:09 = UA Nitrite) PM) [facility] AND [id number] 00:09:00 Test Item Value Reference Range Interpretation Comments UA Leuk Est (test code Large *ABN*(03/26/22 7:09 = UA Leuk Est) PM) [facility] AND [id number] 00:09:00 Test Item Value Reference Range Interpretation Comments UA WBC (test code = >100 /HPF See_Comment [Automa linnea message] The UA WBC) system which ge nerated this result tra nsmitted reference range : <=5. The reference range was not used to interpr et this result as normal/abnormal . [facility] AND [id number] 00:09:00 Test Item Value Reference Range Interpretation Comments UA Sq Epi (test code = UA Sq Occasional /LPF Epi) [facility] AND [id number] 00:09:00 Test Item Value Reference Range Interpretation Comments UA RBC (test code = 2 See_Comment [Automa linnea message] The UA RBC) system which ge nerated this result transmit linnea reference range : <=2. The reference range was not used to interpr et this result as sharri l/abnormal. [facility] AND [id number] 00:09:00 Test Item Value Reference Range Interpretation Comments UA Bacteria (test code = UA Few /HPF Bacteria) [facility] [id number] 00:09:00 Test Item Value Reference Range Interpretation Comments Culture: Urine (test code = No Growth Culture: Urine) [facility] [id number] 20:26:00 Test Item Value Reference Range Interpretation Comments Bili Direct (test code 0.1 See_Comment [Aut omated message] The = Bili Direct) system which generated this result tra nsmitted reference range : <=0.3. The reference r alonzo was not used to int erpret this result as sharri l/abnormal. [facility] [id number] 20:26:00 Test Item Value Reference Range Interpretation Comments Bili Indirect (test 0.4 See_Comment [Automa linnea message] The code = Bili Indirect) system which generated this result tra nsmitted reference range : <=1.0. The reference r alonzo was not used to int erpret this result as normal/abnormal . [facility]2022-09-01 20:26:00 Test Item Value Reference Range Interpretation Comments Lipase Lvl (test code = Lipase Lvl) 543 73-393 [facility] [id number] 20:26:00 Test Item Value Reference Range Interpretation Comments Procalcitonin Lvl (test 0.07 See_Comment [Au tomated message] code = Procalcitonin Lvl) Th e system which generated this result transmitted ref erence range: <=0.10. The reference range was not used to interpr et this result as normal/abnormal . [facility]UbbmmieRGNXUFEKAW8538-25-29 20:26:00 Test Item Value Reference Range Interpretation Comments Basophils # (test code 0.1 See_Comment [Aut omated message] The = Basophils #) system which generated this result tra nsmitted reference range : <=0.2. The reference r alonzo was not used to int erpret this result as normal/abnormal . [place] 170562-09-01 20:26:00 Test Item Value Reference Range Interpretation Comments Coronavirus (COVID-19) Not Detected (03/26/22 ROSE MARY (test code = 3:26 PM) Coronavirus (COVID-19) ROSE MARY) [facility]2022-09-01 20:26:00 Test Item Value Reference Range Interpretation Comments Bili Direct (test code 0.1 See_Comment [Aut omated message] The = Bili Direct) system which generated this result tra nsmitted reference range : <=0.3. The reference r alonzo was not used to int erpret this result as sharri l/abnormal. [place] 298252-09-01 20:26:00 Test Item Value Reference Range Interpretation Comments Bili Indirect (test 0.4 See_Comment [Automa linnea message] The code = Bili Indirect) system which generated this result tra nsmitted reference range : <=1.0. The reference r alonzo was not used to int erpret this result as normal/abnormal . [facility]2022-09-01 20:26:00 Test Item Value Reference Range Interpretation Comments Lipase Lvl (test code = Lipase Lvl) 543 73-393 [place] 298252-09-01 20:26:00 Test Item Value Reference Range Interpretation Comments Procalcitonin Lvl (test 0.07 See_Comment [Au tomated message] code = Procalcitonin Lvl) Th e system which generated this result transmitted ref erence range: <=0.10. The reference range was not used to interpr et this result as normal/abnormal . [place] 222412-09-01 20:26:00 Test Item Value Reference Range Interpretation Comments Basophils # (test code 0.1 See_Comment [Aut omated message] The = Basophils #) system which generated this result tra nsmitted reference range : <=0.2. The reference r alonzo was not used to int erpret this result as normal/abnormal . [place] [address]-09-01 20:26:00 Test Item Value Reference Range Interpretation Comments Coronavirus (COVID-19) Not Detected (03/26/22 ROSE MARY (test code = 3:26 PM) Coronavirus (COVID-19) ROSE MARY) [place] 298252-09-01 20:26:00 Test Item Value Reference Range Interpretation Comments Bili Direct (test code 0.1 See_Comment [Aut omated message] The = Bili Direct) system which generated this result tra nsmitted reference range : <=0.3. The reference r alonzo was not used to int erpret this result as sharri l/abnormal. [place] 298252-09-01 20:26:00 Test Item Value Reference Range Interpretation Comments Bili Indirect (test 0.4 See_Comment [Automa linnea message] The code = Bili Indirect) system which generated this result tra nsmitted reference range : <=1.0. The reference r alonzo was not used to int erpret this result as normal/abnormal . [place] 298252-09-01 20:26:00 Test Item Value Reference Range Interpretation Comments Lipase Lvl (test code = Lipase Lvl) 543 73-393 [place] 298252-09-01 20:26:00 Test Item Value Reference Range Interpretation Comments Procalcitonin Lvl (test 0.07 See_Comment [Au tomated message] code = Procalcitonin Lvl) Th e system which generated this result transmitted ref erence range: <=0.10. The reference range was not used to interpr et this result as normal/abnormal . [facility] CenterEikhnpqPGMEDSXEHR4208-86-99 20:26:00 Test Item Value Reference Range Interpretation Comments Basophils # (test code 0.1 See_Comment [Aut omated message] The = Basophils #) system which generated this result tra nsmitted reference range : <=0.2. The reference r alonzo was not used to int erpret this result as normal/abnormal . [place] [address]-09-01 20:26:00 Test Item Value Reference Range Interpretation Comments Coronavirus (COVID-19) Not Detected (03/26/22 ROSE MARY (test code = 3:26 PM) Coronavirus (COVID-19) ROSE MARY) [facility] HospitalJzxfvzxXHSGAABEKZOF5993-61-53 09:41:00 Test Item Value Reference Range Interpretation Comments BUN (test code = BUN) 38 7-22 [facility] HospitalNhaajpfGWNOMKQVRHVV7659-89-60 09:41:00 Test Item Value Reference Range Interpretation Comments Glucose Lvl (test code = Glucose Lvl) 152 70-99 [facility] HospitalNulvgztVDYRJFVEJPOP4103-66-72 09:41:00 Test Item Value Reference Range Interpretation Comments Sodium Lvl (test code = Sodium Lvl) 138 135-145 [facility] HospitalWozjzqiCZDKHZXOTCTC7212-02-02 09:41:00 Test Item Value Reference Range Interpretation Comments Creatinine Lvl (test code = Creatinine 1.20 0.50-1.40 Lvl) [facility] HospitalMbqgowpAVZCBTVFBMVP9548-09-19 09:41:00 Test Item Value Reference Range Interpretation Comments Potassium Lvl (test code = Potassium 4.2 3.5-5.1 Lvl) [facility] HospitalPzyoqvxFRNXQINIKWPD7937-48-16 09:41:00 Test Item Value Reference Range Interpretation Comments Chloride Lvl (test code = Chloride Lvl) 103 95-109 [facility] CenterZytxsayLLETOUVQQV6352-26-19 09:41:00 Test Item Value Reference Range Interpretation Comments MCV (test code = MCV) 82.4 80.0-98.0 [facility] CenterBhzhkgzUJJIPTLMMS1951-43-25 09:41:00 Test Item Value Reference Range Interpretation Comments MCH (test code = MCH) 26.0 pg 27.0-31.0 [facility] CenterJjmdqhtQNYBVOTOFO7036-58-52 09:41:00 Test Item Value Reference Range Interpretation Comments MCHC (test code = MCHC) 31.5 32.0-36.0 [facility] CenterAcdmioxASKZCAIRHI0849-49-61 09:41:00 Test Item Value Reference Range Interpretation Comments RDW (test code = RDW) 16.7 11.5-14.5 [facility] CenterZpibqpbAMJAXPVNDW9507-87-83 09:41:00 Test Item Value Reference Range Interpretation Comments Hct (test code = Hct) 33.7 36.0-48.0 [facility] CenterDiuylywOBAGYUHEBC2447-81-51 09:41:00 Test Item Value Reference Range Interpretation Comments MPV (test code = MPV) 7.3 7.4-10.4 [facility] CenterSauxlbjUEVIZJEAQN4264-16-08 09:41:00 Test Item Value Reference Range Interpretation Comments Platelet (test code = Platelet) 256 133-450 [facility] CenterZhkqlyzUPSFEUEUMN8822-68-84 09:41:00 Test Item Value Reference Range Interpretation Comments RBC (test code = RBC) 4.09 4.20-5.40 [facility] CenterPymorwxOSEDQTZFVR0239-10-76 09:41:00 Test Item Value Reference Range Interpretation Comments Hgb (test code = Hgb) 10.6 12.0-16.0 [facility] CenterCekjoqyZLNUKSQIUM7811-40-32 09:41:00 Test Item Value Reference Range Interpretation Comments WBC (test code = WBC) 8.3 3.7-10.4 [facility] CenterBezrcckAAYSMELJUI0824-27-63 09:41:00 Test Item Value Reference Range Interpretation Comments Basophils # (test code 0.1 See_Comment [Aut omated message] The = Basophils #) system which generated this result tra nsmitted reference range : <=0.2. The reference r alonzo was not used to int erpret this result as normal/abnormal . [facility] CenterWrrtkdpULRZSGZNDY5243-15-10 09:41:00 Test Item Value Reference Range Interpretation Comments Eosinophils # (test code 0.2 See_Comment [A utomated message] The = Eosinophils #) system whic h generated this result tra nsmitted reference range : <=0.5. The reference r alonzo was not used to int erpret this result as normal/abnormal . [facility] CenterZnwwdvmYZBPWLDFEM8478-14-46 09:41:00 Test Item Value Reference Range Interpretation Comments Segs-Bands # (test code = Segs-Bands #) 5.4 1.5-8.1 [facility] CenterYvswxzjEQHDPJRCZT4695-11-11 09:41:00 Test Item Value Reference Range Interpretation Comments Lymphocytes # (test code = Lymphocytes 2.3 1.0-5.5 #) [facility] CenterNblrfuvFCVPVLELYR6961-80-74 09:41:00 Test Item Value Reference Range Interpretation Comments Monocytes # (test code 0.4 See_Comment [Aut omated message] The = Monocytes #) system which generated this result tra nsmitted reference range : <=0.8. The reference r alonzo was not used to int erpret this result as normal/abnormal . [facility] CenterPqciykjZAHMOKVZMV5530-05-16 09:41:00 Test Item Value Reference Range Interpretation Comments Basophils (test code = 0.6 See_Comment [Aut omated message] The Basophils) system which ge nerated this result tra nsmitted reference range : <=1.0. The reference r alonzo was not used to int erpret this result as normal/abnormal . [facility] CenterYeoixuiTHEVZLBBEK5152-83-67 09:41:00 Test Item Value Reference Range Interpretation Comments Lymphocytes (test code = Lymphocytes) 27.6 20.0-40.0 [facility] CenterEsxsdvhSSJEWJDJCT4138-33-95 09:41:00 Test Item Value Reference Range Interpretation Comments Eosinophils (test code = 2.5 See_Comment [A utomated message] The Eosinophils) system which ge nerated this result tra nsmitted reference range : <=4.0. The reference r alonzo was not used to int erpret this result as normal/abnormal . [facility] CenterKaeluluCMOILUAUIN6398-11-27 09:41:00 Test Item Value Reference Range Interpretation Comments Monocytes (test code = Monocytes) 4.4 2.0-12.0 [facility] CenterSjwjgahRHNWMAMYVR3448-61-24 09:41:00 Test Item Value Reference Range Interpretation Comments Segs (test code = Segs) 64.9 45.0-75.0 [facility]CHEM MRURL7220-88-31 09:41:00 Test Item Value Reference Range Interpretation Comments Magnesium Lvl (test code = Magnesium 2.3 1.8-2.4 Lvl) [facility] HospitalLtjanuiDHGNJZAGJXCU4324-25-58 09:41:00 Test Item Value Reference Range Interpretation Comments AGAP (test code = AGAP) 10.2 10.0-20.0 [facility] HospitalAijmsbtGIGUTCLZWFBE4566-28-47 09:41:00 Test Item Value Reference Range Interpretation Comments eGFR (test code = eGFR) 46 [facility] HospitalVdqvvwvHGQGYWYQJGJT3619-81-69 09:41:00 Test Item Value Reference Range Interpretation Comments CO2 (test code = CO2) 29 24-32 [facility] HospitalOabqykxCKZYAMUHETOT8374-65-36 09:41:00 Test Item Value Reference Range Interpretation Comments Calcium Lvl (test code = Calcium Lvl) 9.0 8.5-10.5 [facility] HospitalIzeomgmGILWTGONZILK7295-80-26 09:41:00 Test Item Value Reference Range Interpretation Comments BUN (test code = BUN) 38 7-22 [facility] HospitalFfbflryOJXIMQOJQRWG6139-44-52 09:41:00 Test Item Value Reference Range Interpretation Comments Glucose Lvl (test code = Glucose Lvl) 152 70-99 [facility] HospitalPedneoxXSIWEPCZQMXZ7363-12-58 09:41:00 Test Item Value Reference Range Interpretation Comments Sodium Lvl (test code = Sodium Lvl) 138 135-145 [facility] HospitalSvuworvEXEWIFNILBWL5370-86-08 09:41:00 Test Item Value Reference Range Interpretation Comments Creatinine Lvl (test code = Creatinine 1.20 0.50-1.40 Lvl) [facility] HospitalBkovrvfVNBORBAOQQAI3351-29-54 09:41:00 Test Item Value Reference Range Interpretation Comments Potassium Lvl (test code = Potassium 4.2 3.5-5.1 Lvl) [facility] HospitalNdezvneGFEZSRYWHTER4943-58-27 09:41:00 Test Item Value Reference Range Interpretation Comments Chloride Lvl (test code = Chloride Lvl) 103 95-109 [facility] CenterKwabrbuZFRVGXEQJA9594-09-73 09:41:00 Test Item Value Reference Range Interpretation Comments MCV (test code = MCV) 82.4 80.0-98.0 [facility] CenterOjlyqxmYIOZSALVCJ7385-02-29 09:41:00 Test Item Value Reference Range Interpretation Comments MCH (test code = MCH) 26.0 pg 27.0-31.0 [facility] CenterLqnvfeeLGIUNUOJSF1278-49-14 09:41:00 Test Item Value Reference Range Interpretation Comments MCHC (test code = MCHC) 31.5 32.0-36.0 [facility] CenterMxszdjpKYUUBYVUXH3898-38-23 09:41:00 Test Item Value Reference Range Interpretation Comments RDW (test code = RDW) 16.7 11.5-14.5 [facility] CenterUrjssbuGBSKQLEWUE0924-44-88 09:41:00 Test Item Value Reference Range Interpretation Comments Hct (test code = Hct) 33.7 36.0-48.0 [facility] CenterFmxnranPGALZBHIBU1129-07-85 09:41:00 Test Item Value Reference Range Interpretation Comments MPV (test code = MPV) 7.3 7.4-10.4 [facility] CenterJdgisciWPDOLPVUMB0924-72-31 09:41:00 Test Item Value Reference Range Interpretation Comments Platelet (test code = Platelet) 256 133-450 [facility] CenterFcplnyhNQJSQTSIUV3893-63-25 09:41:00 Test Item Value Reference Range Interpretation Comments RBC (test code = RBC) 4.09 4.20-5.40 [facility] CenterGqcnadbHYUJFHIEIC2028-85-66 09:41:00 Test Item Value Reference Range Interpretation Comments Hgb (test code = Hgb) 10.6 12.0-16.0 [facility] CenterLawqqdoDJRCEJLSAZ9174-49-70 09:41:00 Test Item Value Reference Range Interpretation Comments WBC (test code = WBC) 8.3 3.7-10.4 [facility] CenterCwrikewJQBXNQMVRQ5145-64-65 09:41:00 Test Item Value Reference Range Interpretation Comments Basophils # (test code 0.1 See_Comment [Aut omated message] The = Basophils #) system which generated this result tra nsmitted reference range : <=0.2. The reference r alonzo was not used to int erpret this result as normal/abnormal . [facility] CenterGlpepuxYMIYKWYZBR1095-66-72 09:41:00 Test Item Value Reference Range Interpretation Comments Eosinophils # (test code 0.2 See_Comment [A utomated message] The = Eosinophils #) system whic h generated this result tra nsmitted reference range : <=0.5. The reference r alonzo was not used to int erpret this result as normal/abnormal . [facility] CenterKxhahepNJIPZTTIXJ8705-54-16 09:41:00 Test Item Value Reference Range Interpretation Comments Segs-Bands # (test code = Segs-Bands #) 5.4 1.5-8.1 [facility] CenterRdsvataATIBCFMSNO6274-89-26 09:41:00 Test Item Value Reference Range Interpretation Comments Lymphocytes # (test code = Lymphocytes 2.3 1.0-5.5 #) [facility] CenterCuhdwtnWDDWYUCJKS5473-19-50 09:41:00 Test Item Value Reference Range Interpretation Comments Monocytes # (test code 0.4 See_Comment [Aut omated message] The = Monocytes #) system which generated this result tra nsmitted reference range : <=0.8. The reference r alonzo was not used to int erpret this result as normal/abnormal . [facility] CenterLpzxohsXVNCTHLYPW6944-09-49 09:41:00 Test Item Value Reference Range Interpretation Comments Basophils (test code = 0.6 See_Comment [Aut omated message] The Basophils) system which ge nerated this result tra nsmitted reference range : <=1.0. The reference r aolnzo was not used to int erpret this result as normal/abnormal . [facility] CenterIdfrkeaXSWQJYNXXS4041-78-65 09:41:00 Test Item Value Reference Range Interpretation Comments Lymphocytes (test code = Lymphocytes) 27.6 20.0-40.0 [facility] CenterKgzgedkNLXRRYIKJX6323-86-42 09:41:00 Test Item Value Reference Range Interpretation Comments Eosinophils (test code = 2.5 See_Comment [A utomated message] The Eosinophils) system which ge nerated this result tra nsmitted reference range : <=4.0. The reference r alonzo was not used to int erpret this result as normal/abnormal . [facility] CenterNnxqereLHLEFZOMVR4222-35-64 09:41:00 Test Item Value Reference Range Interpretation Comments Monocytes (test code = Monocytes) 4.4 2.0-12.0 [facility] CenterFywbjmgTGMWTETVXE1803-95-54 09:41:00 Test Item Value Reference Range Interpretation Comments Segs (test code = Segs) 64.9 45.0-75.[address] [facility]2016-02-27 09:41:00 Test Item Value Reference Range Interpretation Comments Magnesium Lvl (test code = Magnesium 2.3 1.8-2.4 Lvl) [facility] HospitalFjxzriyQNFJABFIXFVL8112-42-55 09:41:00 Test Item Value Reference Range Interpretation Comments AGAP (test code = AGAP) 10.2 10.0-20.0 [facility] HospitalFxvtgweYRUSEOERHIUL6053-60-91 09:41:00 Test Item Value Reference Range Interpretation Comments eGFR (test code = eGFR) 46 [facility] HospitalLsjfgerCKGSTBJBYCVK2679-40-50 09:41:00 Test Item Value Reference Range Interpretation Comments CO2 (test code = CO2) 29 24-32 [facility] HospitalWugebrzIVTFYHDPSEPQ0646-27-43 09:41:00 Test Item Value Reference Range Interpretation Comments Calcium Lvl (test code = Calcium Lvl) 9.0 8.5-10.5 [facility] HospitalFfocogiZRYJVKIUPVAT1051-28-05 09:41:00 Test Item Value Reference Range Interpretation Comments BUN (test code = BUN) 38 7-22 [facility] HospitalYlkmquyUINELGSZPMOZ4818-95-40 09:41:00 Test Item Value Reference Range Interpretation Comments Glucose Lvl (test code = Glucose Lvl) 152 70-99 [facility] HospitalMvdzbquRIDMJJCPDMVX2824-74-93 09:41:00 Test Item Value Reference Range Interpretation Comments Sodium Lvl (test code = Sodium Lvl) 138 135-145 [facility] HospitalRphyirzLFLKCLAPQHKE3722-08-33 09:41:00 Test Item Value Reference Range Interpretation Comments Creatinine Lvl (test code = Creatinine 1.20 0.50-1.40 Lvl) [facility] HospitalChnsmonNAIGGHTIWUVV0633-08-53 09:41:00 Test Item Value Reference Range Interpretation Comments Potassium Lvl (test code = Potassium 4.2 3.5-5.1 Lvl) [facility] HospitalUyitqxzHRASKLYSTBBE6724-99-17 09:41:00 Test Item Value Reference Range Interpretation Comments Chloride Lvl (test code = Chloride Lvl) 103 95-109 [facility] CenterNwswfdbJFPXIBRTBO3319-29-64 09:41:00 Test Item Value Reference Range Interpretation Comments MCV (test code = MCV) 82.4 80.0-98.0 [facility] CenterEluizayNKMTVOSMFL2378-93-38 09:41:00 Test Item Value Reference Range Interpretation Comments MCH (test code = MCH) 26.0 pg 27.0-31.0 [facility] CenterDgptitgPQMCMBDJKQ1210-72-13 09:41:00 Test Item Value Reference Range Interpretation Comments MCHC (test code = MCHC) 31.5 32.0-36.0 [facility] CenterHglwixeEHPDRGIXBT4955-24-13 09:41:00 Test Item Value Reference Range Interpretation Comments RDW (test code = RDW) 16.7 11.5-14.5 [facility] CenterAsnsowgRSRZDBOLBN6945-20-60 09:41:00 Test Item Value Reference Range Interpretation Comments Hct (test code = Hct) 33.7 36.0-48.0 [facility] CenterSyuvpuhYYYPHAMXFT8700-09-49 09:41:00 Test Item Value Reference Range Interpretation Comments MPV (test code = MPV) 7.3 7.4-10.4 [facility] CenterNmkqwfyLGQPDCLXHX8034-21-44 09:41:00 Test Item Value Reference Range Interpretation Comments Platelet (test code = Platelet) 256 133-450 [facility] CenterJjscuwvDVFUFIRPLM5827-85-15 09:41:00 Test Item Value Reference Range Interpretation Comments RBC (test code = RBC) 4.09 4.20-5.40 [facility] CenterOacywhiWYAFTKGKIJ8949-35-49 09:41:00 Test Item Value Reference Range Interpretation Comments Hgb (test code = Hgb) 10.6 12.0-16.0 [facility] CenterCzfhhllWKPZURZMBO5333-69-00 09:41:00 Test Item Value Reference Range Interpretation Comments WBC (test code = WBC) 8.3 3.7-10.4 [facility] CenterSvmcbevUTCZABQICV2446-14-06 09:41:00 Test Item Value Reference Range Interpretation Comments Basophils # (test code 0.1 See_Comment [Aut omated message] The = Basophils #) system which generated this result tra nsmitted reference range : <=0.2. The reference r alonzo was not used to int erpret this result as normal/abnormal . [facility] CenterMpxpucsGCHXPJXQYM2472-42-44 09:41:00 Test Item Value Reference Range Interpretation Comments Eosinophils # (test code 0.2 See_Comment [A utomated message] The = Eosinophils #) system whic h generated this result tra nsmitted reference range : <=0.5. The reference r alonzo was not used to int erpret this result as normal/abnormal . [facility] CenterZmzdvfsJQSUHMVZVQ6662-28-36 09:41:00 Test Item Value Reference Range Interpretation Comments Segs-Bands # (test code = Segs-Bands #) 5.4 1.5-8.1 [facility] CenterJmdchyfQHCMWPIJRQ0456-37-76 09:41:00 Test Item Value Reference Range Interpretation Comments Lymphocytes # (test code = Lymphocytes 2.3 1.0-5.5 #) [facility] CenterWczhtalCQJKBWRQXW8614-80-70 09:41:00 Test Item Value Reference Range Interpretation Comments Monocytes # (test code 0.4 See_Comment [Aut omated message] The = Monocytes #) system which generated this result tra nsmitted reference range : <=0.8. The reference r alonzo was not used to int erpret this result as normal/abnormal . [facility] CenterGcqunxcVXRCAFWADF0148-82-67 09:41:00 Test Item Value Reference Range Interpretation Comments Basophils (test code = 0.6 See_Comment [Aut omated message] The Basophils) system which ge nerated this result tra nsmitted reference range : <=1.0. The reference r alonzo was not used to int erpret this result as normal/abnormal . [facility] CenterCzyjjafPALORWVGTH3709-28-94 09:41:00 Test Item Value Reference Range Interpretation Comments Lymphocytes (test code = Lymphocytes) 27.6 20.0-40.0 [facility] CenterUvfjkbkNVNOCLIRQV5277-65-27 09:41:00 Test Item Value Reference Range Interpretation Comments Eosinophils (test code = 2.5 See_Comment [A utomated message] The Eosinophils) system which ge nerated this result tra nsmitted reference range : <=4.0. The reference r alonzo was not used to int erpret this result as normal/abnormal . [facility] CenterWivrveuMQIDTJGIOL2095-69-29 09:41:00 Test Item Value Reference Range Interpretation Comments Monocytes (test code = Monocytes) 4.4 2.0-12.0 [facility] CenterBxqetpuDYJPWBIZXS4613-64-31 09:41:00 Test Item Value Reference Range Interpretation Comments Segs (test code = Segs) 64.9 45.0-75.[address] [facility]2016-02-27 09:41:00 Test Item Value Reference Range Interpretation Comments Magnesium Lvl (test code = Magnesium 2.3 1.8-2.4 Lvl) [facility]DefcxrnWFUYMSLFRVBM4512-57-05 09:41:00 Test Item Value Reference Range Interpretation Comments AGAP (test code = AGAP) 10.2 10.0-20.0 [facility] HospitalZwuzmzcUSUVKIBWZJFU7308-16-54 09:41:00 Test Item Value Reference Range Interpretation Comments eGFR (test code = eGFR) 46 [facility] HospitalYshtcchDLAOTWYJZXER6998-19-14 09:41:00 Test Item Value Reference Range Interpretation Comments CO2 (test code = CO2) 29 24-32 [facility] HospitalPlphsptYZCGVHYSKNNV3822-59-08 09:41:00 Test Item Value Reference Range Interpretation Comments Calcium Lvl (test code = Calcium Lvl) 9.0 8.5-10.[address] [facility]2016-02-26 09:58:00 Test Item Value Reference Range Interpretation Comments Magnesium Lvl (test code = Magnesium 2.4 1.8-2.4 Lvl) [facility]2016-02-26 09:58:00 Test Item Value Reference Range Interpretation Comments Creatinine Lvl (test code = Creatinine 1.20 0.50-1.40 Lvl) [facility]2016-02-26 09:58:00 Test Item Value Reference Range Interpretation Comments Sodium Lvl (test code = Sodium Lvl) 140 135-[address] [facility]2016-02-26 09:58:00 Test Item Value Reference Range Interpretation Comments Calcium Lvl (test code = Calcium Lvl) 9.3 8.5-10.5 [place] 937116-02-26 09:58:00 Test Item Value Reference Range Interpretation Comments CO2 (test code = CO2) 29 24-[address] [facility]2016-02-26 09:58:00 Test Item Value Reference Range Interpretation Comments Chloride Lvl (test code = Chloride Lvl) 103 95-[address] [facility]2016-02-26 09:58:00 Test Item Value Reference Range Interpretation Comments Potassium Lvl (test code = Potassium 3.6 3.5-5.1 Lvl) [facility]2016-02-26 09:58:00 Test Item Value Reference Range Interpretation Comments eGFR (test code = eGFR) [address] [facility]2016-02-26 09:58:00 Test Item Value Reference Range Interpretation Comments Glucose Lvl (test code = Glucose Lvl) 172 70-[address] [facility]2016-02-26 09:58:00 Test Item Value Reference Range Interpretation Comments BUN (test code = BUN) 36 7-[address] [facility]2016-02-26 09:58:00 Test Item Value Reference Range Interpretation Comments AGAP (test code = AGAP) 11.6 10.0-20.0 [facility] CenterSuzclegDOMKUSTMGV7299-13-48 09:58:00 Test Item Value Reference Range Interpretation Comments Segs-Bands # (test code = Segs-Bands #) 5.0 1.5-8.1 [place] 737356-02-26 09:58:00 Test Item Value Reference Range Interpretation Comments Basophils (test code = 0.4 See_Comment [Aut omated message] The Basophils) system which ge nerated this result tra nsmitted reference range : <=1.0. The reference r alonzo was not used to int erpret this result as normal/abnormal . [facility] CenterVgvuvfrPVMYNGPXEG7623-74-18 09:58:00 Test Item Value Reference Range Interpretation Comments Lymphocytes # (test code = Lymphocytes 2.5 1.0-5.5 #) [place] 737356-02-26 09:58:00 Test Item Value Reference Range Interpretation Comments Monocytes # (test code 0.3 See_Comment [Aut omated message] The = Monocytes #) system which generated this result tra nsmitted reference range : <=0.8. The reference r alonzo was not used to int erpret this result as normal/abnormal . [facility] CenterFzbnfkjVNPYXPPOAQ3928-07-47 09:58:00 Test Item Value Reference Range Interpretation Comments Eosinophils # (test code 0.2 See_Comment [A utomated message] The = Eosinophils #) system whic h generated this result tra nsmitted reference range : <=0.5. The reference r alonzo was not used to int erpret this result as normal/abnormal . [facility] CenterCmexzyuBQNTCDHDRT6154-29-52 09:58:00 Test Item Value Reference Range Interpretation Comments Lymphocytes (test code = Lymphocytes) 30.5 20.0-40.0 [facility] CenterEzdmdhnUFBHBUGURB9979-13-61 09:58:00 Test Item Value Reference Range Interpretation Comments Monocytes (test code = Monocytes) 4.3 2.0-12.0 [facility] CenterVpihtduWTIFKMQTWM9615-14-76 09:58:00 Test Item Value Reference Range Interpretation Comments Eosinophils (test code = 2.7 See_Comment [A utomated message] The Eosinophils) system which ge nerated this result tra nsmitted reference range : <=4.0. The reference r alonzo was not used to int erpret this result as normal/abnormal . [facility] CenterFrhjytiGWXWMYIDKE0334-27-54 09:58:00 Test Item Value Reference Range Interpretation Comments Segs (test code = Segs) 62.1 45.0-75.0 [facility] CenterLbvpvjaMVIVICEANE0991-38-23 09:58:00 Test Item Value Reference Range Interpretation Comments RDW (test code = RDW) 16.5 11.5-14.5 [facility] CenterFhdgupnANVYPJUZSA4237-86-46 09:58:00 Test Item Value Reference Range Interpretation Comments MCHC (test code = MCHC) 32.9 32.0-36.0 [facility] CenterApmhmrqFYEYYENHSV0152-11-45 09:58:00 Test Item Value Reference Range Interpretation Comments MPV (test code = MPV) 7.4 7.4-10.4 [facility] CenterSfblsqoZJHZFICDDE5378-71-32 09:58:00 Test Item Value Reference Range Interpretation Comments Platelet (test code = Platelet) 292 133-450 [facility] CenterQfsihulQJURBCEQEP2310-95-45 09:58:00 Test Item Value Reference Range Interpretation Comments MCV (test code = MCV) 81.0 80.0-98.0 [place] 737356-02-26 09:58:00 Test Item Value Reference Range Interpretation Comments Hct (test code = Hct) 32.6 36.0-48.0 [place] 737356-02-26 09:58:00 Test Item Value Reference Range Interpretation Comments MCH (test code = MCH) 26.6 pg 27.0-31.0 [facility] CenterXfiadjpJMDGPOKORL3688-84-99 09:58:00 Test Item Value Reference Range Interpretation Comments WBC (test code = WBC) 8.1 3.7-10.4 [place] 737356-02-26 09:58:00 Test Item Value Reference Range Interpretation Comments Hgb (test code = Hgb) 10.7 12.0-16.0 [place] [address]-02-26 09:58:00 Test Item Value Reference Range Interpretation Comments RBC (test code = RBC) 4.02 4.20-5.[address] [facility]2016-02-26 09:58:00 Test Item Value Reference Range Interpretation Comments Magnesium Lvl (test code = Magnesium 2.4 1.8-2.4 Lvl) [facility]2016-02-26 09:58:00 Test Item Value Reference Range Interpretation Comments Creatinine Lvl (test code = Creatinine 1.20 0.50-1.40 Lvl) [facility]2016-02-26 09:58:00 Test Item Value Reference Range Interpretation Comments Sodium Lvl (test code = Sodium Lvl) 140 135-[address] [facility]2016-02-26 09:58:00 Test Item Value Reference Range Interpretation Comments Calcium Lvl (test code = Calcium Lvl) 9.3 8.5-10.[address] [facility]2016-02-26 09:58:00 Test Item Value Reference Range Interpretation Comments CO2 (test code = CO2) 29 24-[address] [facility]2016-02-26 09:58:00 Test Item Value Reference Range Interpretation Comments Chloride Lvl (test code = Chloride Lvl) 103 95-[address] [facility]2016-02-26 09:58:00 Test Item Value Reference Range Interpretation Comments Potassium Lvl (test code = Potassium 3.6 3.5-5.1 Lvl) [facility]2016-02-26 09:58:00 Test Item Value Reference Range Interpretation Comments eGFR (test code = eGFR) 46 [place] 937116-02-26 09:58:00 Test Item Value Reference Range Interpretation Comments Glucose Lvl (test code = Glucose Lvl) 172 70-99 [place] 937116-02-26 09:58:00 Test Item Value Reference Range Interpretation Comments BUN (test code = BUN) 36 7-[address] [facility]2016-02-26 09:58:00 Test Item Value Reference Range Interpretation Comments AGAP (test code = AGAP) 11.6 10.0-20.0 [place] 737356-02-26 09:58:00 Test Item Value Reference Range Interpretation Comments Segs-Bands # (test code = Segs-Bands #) 5.0 1.5-8.1 [place] 737356-02-26 09:58:00 Test Item Value Reference Range Interpretation Comments Basophils (test code = 0.4 See_Comment [Aut omated message] The Basophils) system which ge nerated this result tra nsmitted reference range : <=1.0. The reference r alonzo was not used to int erpret this result as normal/abnormal . [facility] CenterZyelhihNDCRJEHBNV7862-35-18 09:58:00 Test Item Value Reference Range Interpretation Comments Lymphocytes # (test code = Lymphocytes 2.5 1.0-5.5 #) [facility] CenterOrbyevmKWSQETJTIK0955-08-86 09:58:00 Test Item Value Reference Range Interpretation Comments Monocytes # (test code 0.3 See_Comment [Aut omated message] The = Monocytes #) system which generated this result tra nsmitted reference range : <=0.8. The reference r alonzo was not used to int erpret this result as normal/abnormal . [facility] CenterPcniuyjFRLJFFNWGQ1857-55-60 09:58:00 Test Item Value Reference Range Interpretation Comments Eosinophils # (test code 0.2 See_Comment [A utomated message] The = Eosinophils #) system whic h generated this result tra nsmitted reference range : <=0.5. The reference r alonzo was not used to int erpret this result as normal/abnormal . [facility] CenterFwgrqndHNHTVSIVYJ5490-53-68 09:58:00 Test Item Value Reference Range Interpretation Comments Lymphocytes (test code = Lymphocytes) 30.5 20.0-40.0 [facility] CenterQjuphycGYVZFBXWDF7358-55-50 09:58:00 Test Item Value Reference Range Interpretation Comments Monocytes (test code = Monocytes) 4.3 2.0-12.0 [facility] CenterUuqtmxvZVAODGYJSQ3128-91-84 09:58:00 Test Item Value Reference Range Interpretation Comments Eosinophils (test code = 2.7 See_Comment [A utomated message] The Eosinophils) system which ge nerated this result tra nsmitted reference range : <=4.0. The reference r alonzo was not used to int erpret this result as normal/abnormal . [facility] CenterCttjtizPPFXIUGGGK8250-33-43 09:58:00 Test Item Value Reference Range Interpretation Comments Segs (test code = Segs) 62.1 45.0-75.0 [facility] CenterGpsblzuBXXSMLBJMV6659-59-82 09:58:00 Test Item Value Reference Range Interpretation Comments RDW (test code = RDW) 16.5 11.5-14.5 [facility] CenterSavmjayHZETDZTCDA5700-90-53 09:58:00 Test Item Value Reference Range Interpretation Comments MCHC (test code = MCHC) 32.9 32.0-36.0 [facility] CenterTxjgieuHGFTYUFOQX5203-20-01 09:58:00 Test Item Value Reference Range Interpretation Comments MPV (test code = MPV) 7.4 7.4-10.4 [facility] CenterOnorkjcHUGFLZBFNZ0053-69-31 09:58:00 Test Item Value Reference Range Interpretation Comments Platelet (test code = Platelet) 292 133-450 [facility] CenterMeetsdxFHXDTAODIB7865-06-98 09:58:00 Test Item Value Reference Range Interpretation Comments MCV (test code = MCV) 81.0 80.0-98.0 [facility] CenterVfobgqrJUPPRNPQCK5095-06-84 09:58:00 Test Item Value Reference Range Interpretation Comments Hct (test code = Hct) 32.6 36.0-48.0 [facility] CenterQvjqiexTJWHFHWSEJ3449-72-27 09:58:00 Test Item Value Reference Range Interpretation Comments MCH (test code = MCH) 26.6 pg 27.0-31.0 [facility] CenterLyalsppBPTWGPPJGU5908-21-07 09:58:00 Test Item Value Reference Range Interpretation Comments WBC (test code = WBC) 8.1 3.7-10.4 [facility] CenterGzlruttZIZCTKLUEX3359-54-82 09:58:00 Test Item Value Reference Range Interpretation Comments Hgb (test code = Hgb) 10.7 12.0-16.0 [facility] CenterPorcsigHZMFQKYMYG6316-56-65 09:58:00 Test Item Value Reference Range Interpretation Comments RBC (test code = RBC) 4.02 4.20-5.[address] [facility]2016-02-26 09:58:00 Test Item Value Reference Range Interpretation Comments Magnesium Lvl (test code = Magnesium 2.4 1.8-2.4 Lvl) [facility]2016-02-26 09:58:00 Test Item Value Reference Range Interpretation Comments Creatinine Lvl (test code = Creatinine 1.20 0.50-1.40 Lvl) [facility]2016-02-26 09:58:00 Test Item Value Reference Range Interpretation Comments Sodium Lvl (test code = Sodium Lvl) 140 135-[address] [facility]2016-02-26 09:58:00 Test Item Value Reference Range Interpretation Comments Calcium Lvl (test code = Calcium Lvl) 9.3 8.5-10.[address] [facility]2016-02-26 09:58:00 Test Item Value Reference Range Interpretation Comments CO2 (test code = CO2) 29 24-[address] [facility]2016-02-26 09:58:00 Test Item Value Reference Range Interpretation Comments Chloride Lvl (test code = Chloride Lvl) 103 95-[address] [facility]2016-02-26 09:58:00 Test Item Value Reference Range Interpretation Comments Potassium Lvl (test code = Potassium 3.6 3.5-5.1 Lvl) [facility]2016-02-26 09:58:00 Test Item Value Reference Range Interpretation Comments eGFR (test code = eGFR) [address] [facility]2016-02-26 09:58:00 Test Item Value Reference Range Interpretation Comments Glucose Lvl (test code = Glucose Lvl) 172 70-[address] [facility]2016-02-26 09:58:00 Test Item Value Reference Range Interpretation Comments BUN (test code = BUN) 36 7-[address] [facility]2016-02-26 09:58:00 Test Item Value Reference Range Interpretation Comments AGAP (test code = AGAP) 11.6 10.0-20.0 [facility] CenterPjeqiyqRZPEOAXTDX8264-55-59 09:58:00 Test Item Value Reference Range Interpretation Comments Segs-Bands # (test code = Segs-Bands #) 5.0 1.5-8.1 [place] 737356-02-26 09:58:00 Test Item Value Reference Range Interpretation Comments Basophils (test code = 0.4 See_Comment [Aut omated message] The Basophils) system which ge nerated this result tra nsmitted reference range : <=1.0. The reference r alonzo was not used to int erpret this result as normal/abnormal . [facility] CenterEjdffelXRCKSMIXOH3702-34-96 09:58:00 Test Item Value Reference Range Interpretation Comments Lymphocytes # (test code = Lymphocytes 2.5 1.0-5.5 #) [facility] CenterTkvycboSIGSKTOEQL2249-79-33 09:58:00 Test Item Value Reference Range Interpretation Comments Monocytes # (test code 0.3 See_Comment [Aut omated message] The = Monocytes #) system which generated this result tra nsmitted reference range : <=0.8. The reference r alonzo was not used to int erpret this result as normal/abnormal . [facility] CenterPkvqeqtBZGGSIXFUI2601-92-35 09:58:00 Test Item Value Reference Range Interpretation Comments Eosinophils # (test code 0.2 See_Comment [A utomated message] The = Eosinophils #) system whic h generated this result tra nsmitted reference range : <=0.5. The reference r alonzo was not used to int erpret this result as normal/abnormal . [facility] CenterQdqnyxaHOBUMRTKXO4209-26-06 09:58:00 Test Item Value Reference Range Interpretation Comments Lymphocytes (test code = Lymphocytes) 30.5 20.0-40.0 [facility] CenterMdlzberJBESMMHZSF9210-58-38 09:58:00 Test Item Value Reference Range Interpretation Comments Monocytes (test code = Monocytes) 4.3 2.0-12.0 [place] 737356-02-26 09:58:00 Test Item Value Reference Range Interpretation Comments Eosinophils (test code = 2.7 See_Comment [A utomated message] The Eosinophils) system which ge nerated this result tra nsmitted reference range : <=4.0. The reference r alonzo was not used to int erpret this result as normal/abnormal . [facility] CenterBlibixoPQGQATNOFP8045-24-29 09:58:00 Test Item Value Reference Range Interpretation Comments Segs (test code = Segs) 62.1 45.0-75.0 [facility] CenterXclvvkxWRISFAUUAE2461-61-27 09:58:00 Test Item Value Reference Range Interpretation Comments RDW (test code = RDW) 16.5 11.5-14.5 [facility] CenterOqkzojdZMUANUCKZD6979-95-43 09:58:00 Test Item Value Reference Range Interpretation Comments MCHC (test code = MCHC) 32.9 32.0-36.0 [facility] CenterVussiunZUAYYGNLTY8469-83-94 09:58:00 Test Item Value Reference Range Interpretation Comments MPV (test code = MPV) 7.4 7.4-10.4 [facility] CenterCoaxbimMQLCUWLIML1621-66-11 09:58:00 Test Item Value Reference Range Interpretation Comments Platelet (test code = Platelet) 292 133-450 [facility] CenterLhfvsppJBFVBJGZNT3708-35-98 09:58:00 Test Item Value Reference Range Interpretation Comments MCV (test code = MCV) 81.0 80.0-98.0 [facility] CenterMdlloqcMJSQERPXWD0469-49-43 09:58:00 Test Item Value Reference Range Interpretation Comments Hct (test code = Hct) 32.6 36.0-48.0 [facility] CenterYdkefetCLFTDHDYFD8827-12-21 09:58:00 Test Item Value Reference Range Interpretation Comments MCH (test code = MCH) 26.6 pg 27.0-31.0 [facility] CenterTcxkokeGMVDJMRERJ6132-33-72 09:58:00 Test Item Value Reference Range Interpretation Comments WBC (test code = WBC) 8.1 3.7-10.4 [facility] CenterUayeicsKJKPDLZXMY2324-63-11 09:58:00 Test Item Value Reference Range Interpretation Comments Hgb (test code = Hgb) 10.7 12.0-16.0 [facility] CenterAoezxgrNMFWVDATTB4530-55-89 09:58:00 Test Item Value Reference Range Interpretation Comments RBC (test code = RBC) 4.02 4.20-5.40 [facility] XXDKSTF9114-44-97 01:53:00 Test Item Value Reference Range Interpretation Comments BNP (test code = BNP) 28 [facility] IHAKF1264-58-33 01:53:00 Test Item Value Reference Range Interpretation Comments Magnesium Lvl (test code = Magnesium 2.9 1.8-2.4 Lvl) [facility]2016-02-26 01:53:00 Test Item Value Reference Range Interpretation Comments Phosphorus (test code = Phosphorus) 3.6 2.5-4.[address] [facility]2016-02-26 01:53:00 Test Item Value Reference Range Interpretation Comments AST (test code = AST) 15 See_Comment [Auto mated message] The system which ge nerated this result transmit linnea reference range : <=37. The reference range was not used to interpr et this result as sharri l/abnormal. [facility]2016-02-26 01:53:00 Test Item Value Reference Range Interpretation Comments Alk Phos (test code = Alk Phos) 87 39-[address] [facility]2016-02-26 01:53:00 Test Item Value Reference Range Interpretation Comments A/G Ratio (test code = A/G Ratio) 0.6 0.7-1.[address] [facility] [facility] 01:[facility]:00 Test Item Value Reference Range Interpretation Comments ALT (test code = ALT) 16 See_Comment [Auto mated message] The system which ge nerated this result transmit linnea reference range : <=65. The reference range was not used to interpr et this result as sharri l/abnormal. [facility] [id number] 01:53:00 Test Item Value Reference Range Interpretation Comments Globulin (test code = Globulin) 4.9 2.0-4.[address] [facility]2016-02-26 01:53:00 Test Item Value Reference Range Interpretation Comments Albumin Lvl (test code = Albumin Lvl) 2.7 3.5-5.[address] [facility]2016-02-26 01:53:00 Test Item Value Reference Range Interpretation Comments Total Protein (test code = Total 7.6 6.4-8.4 Protein) [facility]2016-02-26 01:53:00 Test Item Value Reference Range Interpretation Comments Bili Indirect (test 0.3 See_Comment [Automa linnea message] The code = Bili Indirect) system which generated this result tra nsmitted reference range : <=1.0. The reference r alonzo was not used to int erpret this result as normal/abnormal . [facility]2016-02-26 01:53:00 Test Item Value Reference Range Interpretation Comments Bili Direct (test code 0.1 See_Comment [Aut omated message] The = Bili Direct) system which generated this result tra nsmitted reference range : <=0.3. The reference r alonzo was not used to int erpret this result as sharri l/abnormal. [place] 937116-02-26 01:53:00 Test Item Value Reference Range Interpretation Comments Bili Total (test code = Bili Total) 0.4 0.2-1.3 [place] 937116-02-26 01:53:00 Test Item Value Reference Range Interpretation Comments Lactic Acid Lvl (test code = Lactic 1.1 0.5-2.2 Acid Lvl) [facility]OyofuyqTMMIFQVBVVYH5971-40-77 01:53:00 Test Item Value Reference Range Interpretation Comments AGAP (test code = AGAP) 11.0 10.0-20.0 [facility] HospitalFurkctgYQAYKLFCXKQV1962-75-22 01:53:00 Test Item Value Reference Range Interpretation Comments eGFR (test code = eGFR) 40 [facility] HospitalWavqxmhIMTUJZNXPJZF7746-94-49 01:53:00 Test Item Value Reference Range Interpretation Comments Glucose Lvl (test code = Glucose Lvl) 173 70-99 [place] 802666-02-26 01:53:00 Test Item Value Reference Range Interpretation Comments Sodium Lvl (test code = Sodium Lvl) 136 135-145 [facility] HospitalFokeiytLHWLFLAERKOK8913-27-97 01:53:00 Test Item Value Reference Range Interpretation Comments Creatinine Lvl (test code = Creatinine 1.36 0.50-1.40 Lvl) [place] 802666-02-26 01:53:00 Test Item Value Reference Range Interpretation Comments BUN (test code = BUN) 38 7-22 [facility] HospitalPjzetueCKKGRMAZSLKS6834-09-05 01:53:00 Test Item Value Reference Range Interpretation Comments CO2 (test code = CO2) 28 24-32 [facility] HospitalVrmrugeRYXUQNKSMEJF2116-95-92 01:53:00 Test Item Value Reference Range Interpretation Comments Chloride Lvl (test code = Chloride Lvl) 101 95-109 [facility] HospitalIekofigTWVUMQSPDIBJ6616-23-25 01:53:00 Test Item Value Reference Range Interpretation Comments Potassium Lvl (test code = Potassium 4.0 3.5-5.1 Lvl) [facility] HospitalKhfmqsoZENGURDXFHRM7442-10-75 01:53:00 Test Item Value Reference Range Interpretation Comments Calcium Lvl (test code = Calcium Lvl) 8.6 8.5-10.5 [facility] CenterIrwcfjjOJIJAYGJNS4525-33-32 01:53:00 Test Item Value Reference Range Interpretation Comments RBC (test code = RBC) 3.82 4.20-5.40 [facility] CenterYtwrhohPOZEOXHZYP9492-30-63 01:53:00 Test Item Value Reference Range Interpretation Comments Hgb (test code = Hgb) 10.3 12.0-16.0 [facility] CenterHgdgruqRSSKEDQVPH2236-11-02 01:53:00 Test Item Value Reference Range Interpretation Comments MPV (test code = MPV) 7.5 7.4-10.4 [facility] CenterVmkpluePRMDJKMRQI5437-21-74 01:53:00 Test Item Value Reference Range Interpretation Comments MCH (test code = MCH) 26.8 pg 27.0-31.0 [facility] CenterHjcpwxvLWSMWYXXKB9605-59-08 01:53:00 Test Item Value Reference Range Interpretation Comments MCHC (test code = MCHC) 33.4 32.0-36.0 [facility] CenterBvxapsiRHDXJHRTMK5188-46-59 01:53:00 Test Item Value Reference Range Interpretation Comments RDW (test code = RDW) 16.7 11.5-14.5 [facility] CenterWzskmdaRMGKEUENWR3613-31-84 01:53:00 Test Item Value Reference Range Interpretation Comments WBC (test code = WBC) 8.9 3.7-10.4 [facility] CenterDwmtjnrKFKJSYMMSD8301-10-87 01:53:00 Test Item Value Reference Range Interpretation Comments Hct (test code = Hct) 30.7 36.0-48.0 [facility] CenterQlvwmjeIIPIZFBRGN4987-64-48 01:53:00 Test Item Value Reference Range Interpretation Comments MCV (test code = MCV) 80.4 80.0-98.0 [facility] CenterCbotxrrZZDPEXDOMF6886-18-88 01:53:00 Test Item Value Reference Range Interpretation Comments Platelet (test code = Platelet) 288 133-450 [facility] CenterBgntxsyCWXAOOPNTB7353-14-47 01:53:00 Test Item Value Reference Range Interpretation Comments Monocytes (test code = Monocytes) 3.8 2.0-12.0 [facility] CenterAbgjctlOYPGBFZZRA9324-34-49 01:53:00 Test Item Value Reference Range Interpretation Comments Eosinophils (test code = 2.6 See_Comment [A utomated message] The Eosinophils) system which ge nerated this result tra nsmitted reference range : <=4.0. The reference r alonzo was not used to int erpret this result as normal/abnormal . [facility] CenterVrzfpwuMAOODJXGVI8376-49-01 01:53:00 Test Item Value Reference Range Interpretation Comments Basophils (test code = 1.1 See_Comment [Aut omated message] The Basophils) system which ge nerated this result tra nsmitted reference range : <=1.0. The reference r alonzo was not used to int erpret this result as normal/abnormal . [facility] CenterKyqyqdwPVPWMEDVXW6769-68-92 01:53:00 Test Item Value Reference Range Interpretation Comments Lymphocytes (test code = Lymphocytes) 24.8 20.0-40.0 [facility] CenterMohilksIARANZZLXV8938-77-38 01:53:00 Test Item Value Reference Range Interpretation Comments Segs (test code = Segs) 67.7 45.0-75.0 [facility] CenterWsvbwopUTBIWFHHSZ1743-60-86 01:53:00 Test Item Value Reference Range Interpretation Comments Basophils # (test code 0.1 See_Comment [Aut omated message] The = Basophils #) system which generated this result tra nsmitted reference range : <=0.2. The reference r alonzo was not used to int erpret this result as normal/abnormal . [facility] CenterXqowiftHXCNWLCLDT1918-49-95 01:53:00 Test Item Value Reference Range Interpretation Comments Segs-Bands # (test code = Segs-Bands #) 6.0 1.5-8.1 [facility] CenterDzzdxhuELTUJAIGDP7962-01-33 01:53:00 Test Item Value Reference Range Interpretation Comments Lymphocytes # (test code = Lymphocytes 2.2 1.0-5.5 #) [facility]BtmichwYPVGBTMDAJ3826-80-53 01:53:00 Test Item Value Reference Range Interpretation Comments Monocytes # (test code 0.3 See_Comment [Aut omated message] The = Monocytes #) system which generated this result tra nsmitted reference range : <=0.8. The reference r alonzo was not used to int erpret this result as normal/abnormal . [facility]PgudbnjDCDYEQVRMJ8879-56-64 01:53:00 Test Item Value Reference Range Interpretation Comments Eosinophils # (test code 0.2 See_Comment [A utomated message] The = Eosinophils #) system whic h generated this result tra nsmitted reference range : <=0.5. The reference r alonzo was not used to int erpret this result as normal/abnormal . [facility] CMULJFN2020-20-91 01:53:00 Test Item Value Reference Range Interpretation Comments BNP (test code = BNP) 28 [facility] [id number] 01:53:00 Test Item Value Reference Range Interpretation Comments Magnesium Lvl (test code = Magnesium 2.9 1.8-2.4 Lvl) [facility] ZTHNX6173-22-14 01:53:00 Test Item Value Reference Range Interpretation Comments Phosphorus (test code = Phosphorus) 3.6 2.5-4.5 [facility] THVKA9620-58-25 01:53:00 Test Item Value Reference Range Interpretation Comments AST (test code = AST) 15 See_Comment [Auto mated message] The system which ge nerated this result transmit linnea reference range : <=37. The reference range was not used to interpr et this result as sharri l/abnormal. [facility] RSADI6451-97-20 01:53:00 Test Item Value Reference Range Interpretation Comments Alk Phos (test code = Alk Phos) 87 39-136 [facility] JSFKQ4911-41-18 01:53:00 Test Item Value Reference Range Interpretation Comments A/G Ratio (test code = A/G Ratio) 0.6 0.7-1.6 [facility] EZMOK8406-37-79 01:53:00 Test Item Value Reference Range Interpretation Comments ALT (test code = ALT) 16 See_Comment [Auto mated message] The system which ge nerated this result transmit linnea reference range : <=65. The reference range was not used to interpr et this result as sharri l/abnormal. [place] 937116-02-26 01:53:00 Test Item Value Reference Range Interpretation Comments Globulin (test code = Globulin) 4.9 2.0-4.0 [place] 937116-02-26 01:53:00 Test Item Value Reference Range Interpretation Comments Albumin Lvl (test code = Albumin Lvl) 2.7 3.5-5.0 [place] 937116-02-26 01:53:00 Test Item Value Reference Range Interpretation Comments Total Protein (test code = Total 7.6 6.4-8.4 Protein) [place] 937116-02-26 01:53:00 Test Item Value Reference Range Interpretation Comments Bili Indirect (test 0.3 See_Comment [Automa linnea message] The code = Bili Indirect) system which generated this result tra nsmitted reference range : <=1.0. The reference r alonzo was not used to int erpret this result as normal/abnormal . [facility]2016-02-26 01:53:00 Test Item Value Reference Range Interpretation Comments Bili Direct (test code 0.1 See_Comment [Aut omated message] The = Bili Direct) system which generated this result tra nsmitted reference range : <=0.3. The reference r alonzo was not used to int erpret this result as sharri l/abnormal. [facility]2016-02-26 01:53:00 Test Item Value Reference Range Interpretation Comments Bili Total (test code = Bili Total) 0.4 0.2-1.[address] [facility]2016-02-26 01:53:00 Test Item Value Reference Range Interpretation Comments Lactic Acid Lvl (test code = Lactic 1.1 0.5-2.2 Acid Lvl) [place] 802666-02-26 01:53:00 Test Item Value Reference Range Interpretation Comments AGAP (test code = AGAP) 11.0 10.0-20.0 [place] 802666-02-26 01:53:00 Test Item Value Reference Range Interpretation Comments eGFR (test code = eGFR) 40 [facility] HospitalCjqshacBIUZDLNOWRXZ9116-08-23 01:53:00 Test Item Value Reference Range Interpretation Comments Glucose Lvl (test code = Glucose Lvl) 173 70-99 [facility] HospitalQutoznsNSJCCIPSGQPP7001-93-61 01:53:00 Test Item Value Reference Range Interpretation Comments Sodium Lvl (test code = Sodium Lvl) 136 135-145 [facility] HospitalQhffmgnIFKNUKZSEUOB9821-38-91 01:53:00 Test Item Value Reference Range Interpretation Comments Creatinine Lvl (test code = Creatinine 1.36 0.50-1.40 Lvl) [facility] HospitalQexpkqcAUEWZIXLIHKF3058-61-01 01:53:00 Test Item Value Reference Range Interpretation Comments BUN (test code = BUN) 38 7-22 [facility] HospitalDgtqdndPTALWFJYMOWK9861-75-50 01:53:00 Test Item Value Reference Range Interpretation Comments CO2 (test code = CO2) 28 24-32 [facility] HospitalLuifthfHKWAFTZJDFGF8000-38-57 01:53:00 Test Item Value Reference Range Interpretation Comments Chloride Lvl (test code = Chloride Lvl) 101 95-109 [facility] HospitalQxkewkpJAVXXXJJHWIC5381-78-49 01:53:00 Test Item Value Reference Range Interpretation Comments Potassium Lvl (test code = Potassium 4.0 3.5-5.1 Lvl) [facility] HospitalTjflvozRVMXVUVUSKGF6267-32-30 01:53:00 Test Item Value Reference Range Interpretation Comments Calcium Lvl (test code = Calcium Lvl) 8.6 8.5-10.5 [facility] CenterWquertkHVWMHTKWGR1693-27-55 01:53:00 Test Item Value Reference Range Interpretation Comments RBC (test code = RBC) 3.82 4.20-5.40 [facility] CenterMpkpnkoHXYHGYICDK8035-16-83 01:53:00 Test Item Value Reference Range Interpretation Comments Hgb (test code = Hgb) 10.3 12.0-16.0 [facility] CenterIhdurlwWWKWPVLKIM1289-96-33 01:53:00 Test Item Value Reference Range Interpretation Comments MPV (test code = MPV) 7.5 7.4-10.4 [facility] CenterLnleqwkKVULNRYEAN6124-79-25 01:53:00 Test Item Value Reference Range Interpretation Comments MCH (test code = MCH) 26.8 pg 27.0-31.0 [facility] CenterTukqbrfWDLAVNLFWH1974-72-11 01:53:00 Test Item Value Reference Range Interpretation Comments MCHC (test code = MCHC) 33.4 32.0-36.0 [facility] CenterWgfhtbfSPIVVZKCBG8558-51-45 01:53:00 Test Item Value Reference Range Interpretation Comments RDW (test code = RDW) 16.7 11.5-14.5 [facility] CenterWoronvkBKIPHSHFQO0754-48-54 01:53:00 Test Item Value Reference Range Interpretation Comments WBC (test code = WBC) 8.9 3.7-10.4 [facility] CenterVrmkgtqVZNXNMDXQI3308-50-23 01:53:00 Test Item Value Reference Range Interpretation Comments Hct (test code = Hct) 30.7 36.0-48.0 [facility] CenterRbkyycnPAPZADHDRF5424-58-68 01:53:00 Test Item Value Reference Range Interpretation Comments MCV (test code = MCV) 80.4 80.0-98.0 [facility] CenterCbxmxkfPCWAFSXFGM9512-53-21 01:53:00 Test Item Value Reference Range Interpretation Comments Platelet (test code = Platelet) 288 133-450 [facility] CenterBoifzcaECNEDKKQSO4381-97-10 01:53:00 Test Item Value Reference Range Interpretation Comments Monocytes (test code = Monocytes) 3.8 2.0-12.0 [facility] CenterJwjskihUKFSWJBINY7955-41-14 01:53:00 Test Item Value Reference Range Interpretation Comments Eosinophils (test code = 2.6 See_Comment [A utomated message] The Eosinophils) system which ge nerated this result tra nsmitted reference range : <=4.0. The reference r alonzo was not used to int erpret this result as normal/abnormal . [facility] CenterPmilyvnTWDLHUBZJY4553-09-01 01:53:00 Test Item Value Reference Range Interpretation Comments Basophils (test code = 1.1 See_Comment [Aut omated message] The Basophils) system which ge nerated this result tra nsmitted reference range : <=1.0. The reference r alonzo was not used to int erpret this result as normal/abnormal . [facility] CenterEqpxplkYNVMIRIBPQ7554-21-54 01:53:00 Test Item Value Reference Range Interpretation Comments Lymphocytes (test code = Lymphocytes) 24.8 20.0-40.0 [facility] CenterXsbdifdOLMLYRXZUB9442-35-15 01:53:00 Test Item Value Reference Range Interpretation Comments Segs (test code = Segs) 67.7 45.0-75.0 [facility] CenterRgtfeyyXIZKOGILMD6879-74-18 01:53:00 Test Item Value Reference Range Interpretation Comments Basophils # (test code 0.1 See_Comment [Aut omated message] The = Basophils #) system which generated this result tra nsmitted reference range : <=0.2. The reference r alonzo was not used to int erpret this result as normal/abnormal . [facility] CenterSpfnwflGVQYXEUCXJ5258-99-11 01:53:00 Test Item Value Reference Range Interpretation Comments Segs-Bands # (test code = Segs-Bands #) 6.0 1.5-8.1 [facility] CenterNhppdyqPLLXOALHKJ2790-79-74 01:53:00 Test Item Value Reference Range Interpretation Comments Lymphocytes # (test code = Lymphocytes 2.2 1.0-5.5 #) [facility] CenterWncnmdnMBXFXHWPUZ1242-26-35 01:53:00 Test Item Value Reference Range Interpretation Comments Monocytes # (test code 0.3 See_Comment [Aut omated message] The = Monocytes #) system which generated this result tra nsmitted reference range : <=0.8. The reference r alonzo was not used to int erpret this result as normal/abnormal . [facility] CenterWxrgmslGBSVNYMFKF8474-54-52 01:53:00 Test Item Value Reference Range Interpretation Comments Eosinophils # (test code 0.2 See_Comment [A utomated message] The = Eosinophils #) system whic h generated this result tra nsmitted reference range : <=0.5. The reference r alonzo was not used to int erpret this result as normal/abnormal . [facility] IZINCPT6475-82-08 01:53:00 Test Item Value Reference Range Interpretation Comments BNP (test code = BNP) 28 [facility]Solid [facility] FDADN2909-79-97 01:53:00 Test Item Value Reference Range Interpretation Comments Magnesium Lvl (test code = Magnesium 2.9 1.8-2.4 Lvl) [facility]2016-02-26 01:53:00 Test Item Value Reference Range Interpretation Comments Phosphorus (test code = Phosphorus) 3.6 2.5-4.[address] [facility]2016-02-26 01:53:00 Test Item Value Reference Range Interpretation Comments AST (test code = AST) 15 See_Comment [Auto mated message] The system which ge nerated this result transmit linnea reference range : <=37. The reference range was not used to interpr et this result as sharri l/abnormal. [place] 937116-02-26 01:53:00 Test Item Value Reference Range Interpretation Comments Alk Phos (test code = Alk Phos) 87 39-136 [place] 937116-02-26 01:53:00 Test Item Value Reference Range Interpretation Comments A/G Ratio (test code = A/G Ratio) 0.6 0.7-1.6 [place] 937116-02-26 01:53:00 Test Item Value Reference Range Interpretation Comments ALT (test code = ALT) 16 See_Comment [Auto mated message] The system which ge nerated this result transmit linnea reference range : <=65. The reference range was not used to interpr et this result as sharri l/abnormal. [place] 937116-02-26 01:53:00 Test Item Value Reference Range Interpretation Comments Globulin (test code = Globulin) 4.9 2.0-4.0 [place] 937116-02-26 01:53:00 Test Item Value Reference Range Interpretation Comments Albumin Lvl (test code = Albumin Lvl) 2.7 3.5-5.0 [place] 937116-02-26 01:53:00 Test Item Value Reference Range Interpretation Comments Total Protein (test code = Total 7.6 6.4-8.4 Protein) [place] 937116-02-26 01:53:00 Test Item Value Reference Range Interpretation Comments Bili Indirect (test 0.3 See_Comment [Automa linnea message] The code = Bili Indirect) system which generated this result tra nsmitted reference range : <=1.0. The reference r alonzo was not used to int erpret this result as normal/abnormal . [place] 937116-02-26 01:53:00 Test Item Value Reference Range Interpretation Comments Bili Direct (test code 0.1 See_Comment [Aut omated message] The = Bili Direct) system which generated this result tra nsmitted reference range : <=0.3. The reference r alonzo was not used to int erpret this result as sharri l/abnormal. [place] 937116-02-26 01:53:00 Test Item Value Reference Range Interpretation Comments Bili Total (test code = Bili Total) 0.4 0.2-1.3 [facility]CHEM [id number] 01:53:00 Test Item Value Reference Range Interpretation Comments Lactic Acid Lvl (test code = Lactic 1.1 0.5-2.2 Acid Lvl) [facility] HospitalHgvhdvzECAHPSZOMCSO4078-23-70 01:53:00 Test Item Value Reference Range Interpretation Comments AGAP (test code = AGAP) 11.0 10.0-20.0 [facility] HospitalRfbvxekDJSMZUPLWSAS2770-20-05 01:53:00 Test Item Value Reference Range Interpretation Comments eGFR (test code = eGFR) 40 [facility] HospitalHjwgszwAWHBIVUVOTFY1770-90-86 01:53:00 Test Item Value Reference Range Interpretation Comments Glucose Lvl (test code = Glucose Lvl) 173 70-99 [facility] HospitalBxdxfxwOCHXCSIFGOWF9748-16-23 01:53:00 Test Item Value Reference Range Interpretation Comments Sodium Lvl (test code = Sodium Lvl) 136 135-145 [facility] HospitalJypwelsXOJFFUPKKACS2855-81-66 01:53:00 Test Item Value Reference Range Interpretation Comments Creatinine Lvl (test code = Creatinine 1.36 0.50-1.40 Lvl) [facility] HospitalQuvtuzzEUWNWPFTRASY8397-33-73 01:53:00 Test Item Value Reference Range Interpretation Comments BUN (test code = BUN) 38 7-22 [facility] HospitalMnmpzdmFHUGNKJDQDVK9587-65-07 01:53:00 Test Item Value Reference Range Interpretation Comments CO2 (test code = CO2) 28 24-32 [facility] HospitalEpdiswaZEPEVRJMYCTR9362-42-25 01:53:00 Test Item Value Reference Range Interpretation Comments Chloride Lvl (test code = Chloride Lvl) 101 95-109 [facility] HospitalCqrrboiJYXNBLQSCLRU0117-10-25 01:53:00 Test Item Value Reference Range Interpretation Comments Potassium Lvl (test code = Potassium 4.0 3.5-5.1 Lvl) [facility] HospitalZumdylsFGZSUHPYYOND6837-24-36 01:53:00 Test Item Value Reference Range Interpretation Comments Calcium Lvl (test code = Calcium Lvl) 8.6 8.5-10.5 [facility] HospitalCoeizrjFGEHZURTUU5643-41-27 01:53:00 Test Item Value Reference Range Interpretation Comments RBC (test code = RBC) 3.82 4.20-5.40 [facility] CenterGmgfgwjDRNMERQDKI7754-68-73 01:53:00 Test Item Value Reference Range Interpretation Comments Hgb (test code = Hgb) 10.3 12.0-16.0 [facility] CenterOamqbxmJWVUKFNHMB2851-35-02 01:53:00 Test Item Value Reference Range Interpretation Comments MPV (test code = MPV) 7.5 7.4-10.4 [facility] CenterNjqgyuvRJFBWHPWMW4629-84-97 01:53:00 Test Item Value Reference Range Interpretation Comments MCH (test code = MCH) 26.8 pg 27.0-31.0 [facility] CenterDudzizxUZSZRWFOCQ2694-19-38 01:53:00 Test Item Value Reference Range Interpretation Comments MCHC (test code = MCHC) 33.4 32.0-36.0 [facility] CenterDxihgqbYVAHEOEEJL4668-97-38 01:53:00 Test Item Value Reference Range Interpretation Comments RDW (test code = RDW) 16.7 11.5-14.5 [facility] CenterYfmcprsCIQALPEORY2310-73-52 01:53:00 Test Item Value Reference Range Interpretation Comments WBC (test code = WBC) 8.9 3.7-10.4 [facility] CenterQypvnhfGKXLPSWHYJ4865-88-49 01:53:00 Test Item Value Reference Range Interpretation Comments Hct (test code = Hct) 30.7 36.0-48.0 [facility] CenterQmsmvvvKUMFLFZYLU3937-67-70 01:53:00 Test Item Value Reference Range Interpretation Comments MCV (test code = MCV) 80.4 80.0-98.0 [facility] CenterXxaxegsYFQIXVVQOZ4690-63-36 01:53:00 Test Item Value Reference Range Interpretation Comments Platelet (test code = Platelet) 288 133-450 [facility] CenterHjbsmyxDURELPOXSV4763-06-88 01:53:00 Test Item Value Reference Range Interpretation Comments Monocytes (test code = Monocytes) 3.8 2.0-12.0 [facility] CenterQndmnafCLSNZPSDKD1253-93-76 01:53:00 Test Item Value Reference Range Interpretation Comments Eosinophils (test code = 2.6 See_Comment [A utomated message] The Eosinophils) system which ge nerated this result tra nsmitted reference range : <=4.0. The reference r alonzo was not used to int erpret this result as normal/abnormal . [id number] 01:53:00 Test Item Value Reference Range Interpretation Comments Basophils (test code = 1.1 See_Comment [Aut omated message] The Basophils) system which ge nerated this result tra nsmitted reference range : <=1.0. The reference r alonzo was not used to int erpret this result as normal/abnormal . [facility] [id number] 01:53:00 Test Item Value Reference Range Interpretation Comments Lymphocytes (test code = Lymphocytes) 24.8 20.0-40.0 [facility] [id number] 01:53:00 Test Item Value Reference Range Interpretation Comments Segs (test code = Segs) 67.7 45.0-75.0 [facility] [id number] 01:53:00 Test Item Value Reference Range Interpretation Comments Basophils # (test code 0.1 See_Comment [Aut omated message] The = Basophils #) system which generated this result tra nsmitted reference range : <=0.2. The reference r alonzo was not used to int erpret this result as normal/abnormal . [facility] [id number] 01:53:00 Test Item Value Reference Range Interpretation Comments Segs-Bands # (test code = Segs-Bands #) 6.0 1.5-8.1 [facility] [id number] 01:53:00 Test Item Value Reference Range Interpretation Comments Lymphocytes # (test code = Lymphocytes 2.2 1.0-5.5 #) [facility] [id number] 01:53:00 Test Item Value Reference Range Interpretation Comments Monocytes # (test code 0.3 See_Comment [Aut omated message] The = Monocytes #) system which generated this result tra nsmitted reference range : <=0.8. The reference r alonzo was not used to int erpret this result as normal/abnormal . [facility] [id number] 01:53:00 Test Item Value Reference Range Interpretation Comments Eosinophils # (test code 0.2 See_Comment [A utomated message] The = Eosinophils #) system whic h generated this result tra nsmitted reference range : <=0.5. The reference r alonzo was not used to int erpret this result as normal/abnormal . [facility]
[2022-05-29] MEDS ORDERED: APIXABAN 5 MG TABLET ONE ×2 (14:28→15:06)
--- NOTE | 2022-05-29 15:03 | ER ---
Nurse's Notes [facility] Name: Lizett Baca Age: 77 yrs Sex: Female : 1945 Arrival Date: 05/29/2022 Time: 13:40 Bed 6 Private MD: Diagnosis: Acute embolism and thrombosis of unspecified deep veins of left lower extremity Presentation: 05/29 13:57 Chief complaint: [place] states[place] , has a DVT in left leg , popliteal iw vein. Coronavirus screen: At this time, the client does not indicate any symptoms associated with coronavirus-19. Ebola Screen: Patient negative for fever greater than or equal to 101.5 degrees Fahrenheit, and additional compatible Ebola Virus Disease symptoms Patient denies exposure to infectious person. Patient denies travel to an Ebola-affected area in the 21 days before illness onset. No symptoms or risks identified at this time. Initial Sepsis Screen: Does the patient meet any 2 criteria? No. Patient's initial sepsis screen is negative. Does the patient have a suspected source of infection? No. Patient's initial sepsis screen is negative. Risk Assessment: Do you want to hurt yourself or someone else? Patient reports no desire to harm self or others. Onset of symptoms was May 29, 2022. 13:57 Method Of Arrival: Wheelchair iw 13:57 Acuity: MARIAA 3 iw Historical: - Allergies: 13:58 Iodine; iw 13:58 Lisinopril; iw - Home Meds: 13:58 allopurinol 300 mg Oral tab once daily [Active]; amlodipine 10 mg tab once daily iw [Active]; carvedilol 3.125 mg Oral tab 2 times per day [Active]; clonidine HCl 0.3 mg Oral tab 2 times per day [Active]; Iron CR Oral daily [Active]; losartan 100 mg Oral tab once daily [Active]; metformin 1,000 mg Oral TG24 2 times per day [Active]; - PMHx: 13:58 diabetes mellitus; Hypertensive disorder; right ankle fracture; wound to left foot; iw - Immunization history:: Client reports receiving the 2nd dose of the Covid vaccine. - Family history:: not pertinent. - Social history:: Smoking status: Patient denies any tobacco usage or history of. - Hospitalizations: : No recent hospitalization is reported. Screenin:18 Abuse screen: Denies threats or abuse. Nutritional screening: No deficits noted. ll1 Tuberculosis screening: No symptoms or risk factors identified. Fall Risk Ambulatory Aid- Crutches/Cane/Walker (15 pts). Gait- Impaired (20 pts.). Mental Status- Total Dwyer Fall Scale indicates High Risk Score (45 or more points). Fall prevention measures have been instituted. Side Rails Up X 2 Placed Close to Nursing Station Frequent Obs/Assessments Occuring Family Present and informed to notify staff if the need to leave the bedside As available patient and family educated on Fall Prevention Program and Strategies. Assessment: 14:29 General: Appears in no apparent distress. Behavior is cooperative, appropriate for age. ll1 Pain: Denies pain. Derm: Wound noted Other: wound care to both legs. Musculoskeletal: Circulation, motion, and sensation intact. Capillary refill < 3 seconds, in bilateral feet. Vital Signs: 13:57 Pulse 75; Resp 16; Temp 97.4; iw 13:58 BP 226 / 98; Pulse 77; Pulse Ox 94% on R/A; iw 15:17 BP 200 / 91; Pulse 75; Resp 17 S; ll1 ED Course: 13:40 Patient arrived in ED. rg4 13:58 Triage completed. iw 13:58 Arm band placed on. iw 14:00 Patient placed in an exam room, on a stretcher. ll1 14:01 Sophia Medina, KINSEY is Primary Nurse. ll1 14:03 Jhonny Benavides MD is Attending Physician. rn 15:02 Capo Buchanan MD is Referral Physician. rn 15:18 Patient has correct armband on for positive identification. Bed in low position. ll1 15:18 No provider procedures requiring assistance completed. Patient did not have IV access ll1 during this emergency room visit. Administered Medications: 14:29 Drug: Eliquis (apixaban) 5 mg Route: PO; ll1 15:19 Follow up: Response: No adverse reaction ll1 15:11 Drug: Eliquis (apixaban) 5 mg Route: PO; ll1 15:19 Follow up: Response: No adverse reaction ll1 Medication: 15:19 VIS not applicable for this client. ll1 Outcome: 15:02 Discharge ordered by . rn 15:18 Discharged to home via wheelchair. ll1 15:18 Condition: stable 15:18 Discharge instructions given to patient, Instructed on discharge instructions, follow up and referral plans. medication usage, Demonstrated understanding of instructions, follow-up care, medications, Prescriptions given X 2. 15:19 Patient left the ED. ll1 Signatures: Jennifer Wade RN RN iw Nieto, Roman, MD MD rn Garcia, Rubi rg4 Sophia Medina RN RN ll1 Corrections: (The following items were deleted from the chart) 14:08 13:57 Chief complaint: Patient states: [place] , has a DVT in right leg , iw popliteal vein iw
--- NOTE | 2022-05-29 15:03 | EDPHYS ---
Physician Documentation [facility] Name: Lizett Baca Age: 77 yrs Sex: Female : 1945 Arrival Date: 05/29/2022 Time: 13:40 Bed 6 Private MD: ED Physician Jhonny Benavides HPI: 05/29 14:55 This 77 yrs old Black Female presents to ER via Wheelchair with complaints of Blood rn Clot. 14:55 The patient presents with pain. The complaints affect the posterior aspect of left rn knee. Onset: The symptoms/episode began/occurred at an unknown time. Modifying factors: The symptoms are alleviated by nothing. the symptoms are aggravated by nothing. Severity of symptoms: At their worst the symptoms were mild, in the emergency department the symptoms are unchanged. The patient has not experienced similar symptoms in the past. The patient has been recently seen by a physician:. Pt had outpt u/s today that showed blood clot in popliteal vein of LLE. UNable to get a hold of dr child who ordered study, so sent her here. REports doesn't walk or move. No previous blood clots. . Historical: - Allergies: 13:58 Iodine; iw 13:58 Lisinopril; iw - Home Meds: 13:58 allopurinol 300 mg Oral tab once daily [Active]; amlodipine 10 mg tab once daily iw [Active]; carvedilol 3.125 mg Oral tab 2 times per day [Active]; clonidine HCl 0.3 mg Oral tab 2 times per day [Active]; Iron CR Oral daily [Active]; losartan 100 mg Oral tab once daily [Active]; metformin 1,000 mg Oral TG24 2 times per day [Active]; - PMHx: 13:58 diabetes mellitus; Hypertensive disorder; right ankle fracture; wound to left foot; iw - Immunization history:: Client reports receiving the 2nd dose of the Covid vaccine. - Family history:: not pertinent. - Social history:: Smoking status: Patient denies any tobacco usage or history of. - Hospitalizations: : No recent hospitalization is reported. ROS: 14:55 Constitutional: Negative for fever, chills, and weight loss, Cardiovascular: Negative rn for chest pain, palpitations Respiratory: Negative for shortness of breath, cough, wheezing, and pleuritic chest pain, Abdomen/GI: Negative for abdominal pain, nausea, vomiting, diarrhea, and constipation, MS/Extremity: + left posterior knee pain Skin: Negative for injury, rash, and discoloration, Neuro: Negative for headache Exam: 14:55 Constitutional: This is a well developed, well nourished patient who is awake, alert, rn and in no acute distress. Cardiovascular: Regular rate and rhythm. No pulse deficits. Respiratory: No increased work of breathing, no retractions or nasal flaring. MS/ Extremity: No cyanosis. Mild swelling LLE. Neuro: Awake and alert, GCS 15 Vital Signs: 13:57 Pulse 75; Resp 16; Temp 97.4; iw 13:58 BP 226 / 98; Pulse 77; Pulse Ox 94% on R/A; iw 15:17 BP 200 / 91; Pulse 75; Resp 17 S; ll1 MDM: 14:03 Patient medically screened. rn 15:01 Differential diagnosis: DVT. Data reviewed: vital signs, nurses notes, radiologic rn studies, ultrasound, and as a result, I will discharge patient. Counseling: I had a detailed discussion with the patient and/or guardian regarding: the historical points, exam findings, and any diagnostic results supporting the discharge/admit diagnosis, radiology results, the need for outpatient follow up, to return to the emergency department if symptoms worsen or persist or if there are any questions or concerns that arise at home. Special discussion: I discussed with the patient/guardian in detail that at this point there is no indication for admission to the hospital. It is understood, however, that if the symptoms persist or worsen the patient needs to return immediately for re-evaluation. Administered Medications: 14:29 Drug: Eliquis (apixaban) 5 mg Route: PO; ll1 15:19 Follow up: Response: No adverse reaction ll1 15:11 Drug: Eliquis (apixaban) 5 mg Route: PO; ll1 15:19 Follow up: Response: No adverse reaction ll1 Disposition Summary: 05/29/22 15:02 Discharge Ordered Location: Home rn Problem: new rn Symptoms: are unchanged rn Condition: Stable rn Diagnosis - Acute embolism and thrombosis of unspecified deep veins of left lower extremity rn Followup: rn - With: Capo Child MD - When: As needed - Reason: Recheck today's complaints, Re-evaluation by your physician Discharge Instructions: - Discharge Summary Sheet rn - Deep Vein Thrombosis rn - Bleeding Precautions When on Anticoagulant Therapy, Adult rn Forms: - Medication Reconciliation Form rn - Thank You Letter rn - Antibiotic rn charge - Prescription Opioid Use rn Prescriptions: - Eliquis 5 mg Oral tablet - take 1 tablet by ORAL route 2 times per day 3 months Take this beginning 2nd rn week of therapy and only after finishing 1st prescription; 180 tablet; Refills: 0, Product Selection Permitted - Eliquis 5 mg Oral tablet - take 2 tablet by ORAL route 2 times per day for 7 days Take this for the first rn week, followed by second prescription; 28 tablet; Refills: 0, Product Selection Permitted Signatures: Jennifer Wade RN RN iw Nieto, Roman, MD MD rn Lewis, Lynsay, RN RN ll1
[2022-05-29 15:27] VITALS: TEMP 97.4
[2022-05-29 15:28] VITALS: BP 226/98; O2SAT 94
== END 2022-05-29 15:19 | disposition home or self-care (01) ==
LOC: ER 13:37
DX: I82.402 Acute embolism and thrombosis of unspecified deep veins of left lower extremity (principal); I10 Essential (primary) hypertension; E11.9 Type 2 diabetes mellitus without complications; Z88.8 Allergy status to other drugs, medicaments and biological substances
CPT/HCPCS: 99283